=== PATIENT | male | born 1965 | race Caucasian/White ===

== ENCOUNTER 2018-09-18 18:58 | Emergency (ER) | payer MEDICARE ==
[2018-09-18] MEDS ORDERED: Cyclobenzaprine 10 MG TAB ONE (19:28)
--- NOTE | 2018-09-18 21:31 | RAD ---
LEFT LEG TWO VIEWS: 09/18/18 No acute fracture was seen. The tibia and fibula appear intact. IMPRESSION: No acute finding. POS: HOME
== END 2018-09-18 20:02 | disposition home or self-care (01) ==
LOC: BURERS 18:58
DX: S86.112A Strain of other muscle(s) and tendon(s) of posterior muscle group at lower leg level, left leg, initial encounter (principal); M54.5 Low back pain; E11.9 Type 2 diabetes mellitus without complications; I11.0 Hypertensive heart disease with heart failure; I50.9 Heart failure, unspecified; M19.90 Unspecified osteoarthritis, unspecified site; F32.9 Major depressive disorder, single episode, unspecified; Z79.899 Other long term (current) drug therapy; Z79.4 Long term (current) use of insulin; Z79.82 Long term (current) use of aspirin; W19.XXXA Unspecified fall, initial encounter; Y92.009 Unspecified place in unspecified non-institutional (private) residence as the place of occurrence of the external cause

== ENCOUNTER 2019-01-08 11:52 | Emergency (ER) | payer MEDICARE ==
[2019-01-08 12:19] LABS: #Basophils 0.1 thou/uL (0.0-0.2); #Eosinphils 0.1 thou/uL (0.0-0.7); #Lymphocytes 1.8 thou/uL (1.20-3.40); #Monocytes 0.5 thou/uL (0.11-0.59); #Neutrophils 4.7 thou/uL (1.40-6.50); %Eosinophils 1.6 % (0.0-10.0); %Lymphocytes 24.9 % (21.0-51.0); %Monocytes 6.5 % (0.0-10.0); Hemoglobin 10.4 g/dL (14.0-18.0); Mean Corpuscular HGB CONC 30.6 g/dL (32.0-36.0); Mean Corpuscular Volume 91.4 fL (78.0-98.0); Mean Platelet Volume 6.2 fL (7.4-10.4); Platelet Count 229 thou/uL (130-400); RBC Distribution Width 14.5 % (11.5-14.5); Red Blood Cell (RBC) Count 3.71 mill/uL (4.70-6.10); White Blood Cell (WBC) Count 7.2 thou/uL (4.8-10.8)
[2019-01-08 12:31] LABS: ALT (SGPT) 15 U/L (8-55); AST (SGOT) 14 U/L (5-34); Albumin 3.7 g/dL (3.5-5.0); Alkaline Phosphatase 65 U/L (40-150); BUN (Urea Nitrogen) 62 mg/dL (8.4-25.7); Bilirubin, Total 0.2 mg/dL (0.2-1.2); Calc. Creatinine Clearance 0 mL/min (70-130); Calcium 9.1 mg/dL (7.8-10.44); Chloride 110 mmol/L (98-107); Estimated GFR-MDRD 31; Globulin 3.2 g/dL (2.4-3.5); Glucose 201 mg/dL (70-105); Potassium 6.2 mmol/L (3.5-5.1); Protein, Total 6.9 g/dL (6.0-8.3)
[2019-01-08 12:34] LABS: Sodium 135 mmol/L (136-145)
[2019-01-08] MEDS ORDERED: Insulin Regular 300 UNITS/3 ML VIAL SC SCH (13:00)
[2019-01-08] MEDS ORDERED: Sodium Bicarb 50 MEQ/50 ML Abboject 8.4% SYRINGE ONE (13:00)
[2019-01-08] MEDS ORDERED: Dextrose 50% Abboject 50 ML SYRINGE ONE ×2 (13:00→14:38)
[2019-01-08] MEDS ORDERED: Calcium Chloride 1 GM/10 ML Abboject SYRINGE IVP SCH (13:00)
[2019-01-08] MEDS ORDERED: Albuterol Sulfate 2.5 mg/0.5 ml Neb NEB SCH (13:00)
[2019-01-08] MEDS ORDERED: Calcium Chloride 1 GM/10 ML Abboject SYRINGE ONE (13:00)
[2019-01-08] MEDS ORDERED: Insulin Regular 300 UNITS/3 ML VIAL ONE (13:00)
[2019-01-08] MEDS ORDERED: Albuterol Sulfate 1.25 MG/3 ML NEB ONE (13:05)
[2019-01-08] MEDS ORDERED: Sodium Bicarb 50 MEQ/50 ML Abboject 8.4% SYRINGE IVP SCH (13:15)
[2019-01-08 13:35] LABS: Bilirubin Negative (Negative); Blood, Urine Small (Negative); Clarity Cloudy (Clear); Glucose, Urine (Dipstick) Negative (Negative); Leukocyte Moderate (Negative); Nitrite Negative (Negative); Protein, Urine (Dipstick) 100 mg/dL (Neg-Trace); Urobilinogen 0.2 mg/dL (Less than 2)
[2019-01-08 13:36] LABS: Bacteria/HPF 4+ HPF (None Seen); Squamous Epithelial 0-3 HPF (0-3)
[2019-01-08 13:37] LABS: RBC/HPF 0-3 HPF (0-3); WBC/HPF 21-50 HPF (0-3)
[2019-01-08 14:18] LABS: Potassium 6.6 mmol/L (3.5-5.1)
[2019-01-08 16:17] LABS: Potassium 5.4 mmol/L (3.5-5.1)
== END 2019-01-08 16:40 | disposition home or self-care (01) ==
LOC: BURERS 11:52
DX: E87.5 Hyperkalemia (principal); N19 Unspecified kidney failure; I11.0 Hypertensive heart disease with heart failure; I50.9 Heart failure, unspecified; G47.33 Obstructive sleep apnea (adult) (pediatric); E11.9 Type 2 diabetes mellitus without complications; F32.9 Major depressive disorder, single episode, unspecified; Z79.82 Long term (current) use of aspirin; Z79.4 Long term (current) use of insulin
CPT/HCPCS: 80053; 81003; 81015; 83605; 85025; 93005; 96374; 96375; 96376; J1815; J7611

== ENCOUNTER 2020-06-11 11:33 | Outpatient (CLI) | payer MEDICARE | END 2020-06-11 11:34 | disposition home or self-care (01) | LOC: BURRAD 11:33 | PROVIDERS: ATTEND Family Medicine | DX: R22.31 Localized swelling, mass and lump, right upper limb (principal) ==

== ENCOUNTER 2021-04-08 14:57 | Outpatient (CLI) | payer MEDICARE | END 2021-04-08 14:58 | disposition home or self-care (01) | LOC: BURRAD 14:57 | PROVIDERS: ATTEND Podiatrist Foot & Ankle Surgery | DX: L97.529 Non-pressure chronic ulcer of other part of left foot with unspecified severity (principal) ==

== ENCOUNTER 2021-05-14 16:24 | Inpatient (IN) | payer MEDICARE ==
[2021-05-14] MEDS ORDERED: Dextrose 5% in Water 1,000 ML IV PRN (17:30)
[2021-05-14] MEDS ORDERED: Dextrose 50% Abboject 50 ML SYRINGE SLOW IVP PRN (17:30)
[2021-05-14 18:41] LABS: #Basophils 0.1 thou/uL (0.0-0.2); #Eosinphils 0.3 thou/uL (0.0-0.7); #Lymphocytes 2.4 thou/uL (1.20-3.40); #Monocytes 0.5 thou/uL (0.11-0.59); #Neutrophils 6.3 thou/uL (1.40-6.50); %Basophils 1.1 % (0.0-1.0); Hemoglobin 10.6 g/dL (14.0-18.0); Mean Corpuscular Hemoglobin 27.3 pg (27.0-31.0); Mean Corpuscular Volume 82.9 fL (78.0-98.0); Platelet Count 299 thou/uL (130-400); RBC Distribution Width 14.5 % (11.5-14.5); Red Blood Cell (RBC) Count 3.87 mill/uL (4.70-6.10); White Blood Cell (WBC) Count 9.6 thou/uL (4.8-10.8)
[2021-05-14 18:54] LABS: Anion Gap 18 mmol/L (10-20); BUN (Urea Nitrogen) 42 mg/dL (8.4-25.7); CRP (Inflammatory) 1.57 mg/dL (= or < 0.5); Calc. Creatinine Clearance 0 mL/min (70-130); Calcium 9.3 mg/dL (7.8-10.44); Carbon Dioxide 24 mmol/L (22-29); Chloride 100 mmol/L (98-107); Glucose 277 mg/dL (70-105); Potassium 4.9 mmol/L (3.5-5.1); Sodium 137 mmol/L (136-145)
[2021-05-14] MEDS: Lantus 1000 UNITS/10 ML VIAL SC SCH (20:41)
[2021-05-14] MEDS: HumaLOG 300 UNITS/3 ML VIAL SC PRN (20:42)
[2021-05-14] MEDS: Atorvastatin Calcium 40 MG TAB PO SCH (20:43)
[2021-05-14] MEDS: Gabapentin 300 MG CAP PO SCH (20:44)
[2021-05-14] MEDS: Amoxicillin/Potassium Clav 875 MG TAB PO SCH (20:44)
[2021-05-14] MEDS: traZODone HCl 50 MG TAB PO SCH (20:46)
[2021-05-14] MEDS: Famotidine 20 MG TAB PO SCH (20:46)
[2021-05-14] MEDS: Loratadine 10 MG TAB PO SCH (20:47)
[2021-05-14] MEDS: hydrALAZINE 10 MG TAB PO SCH (20:47)
[2021-05-15] MEDS: Furosemide 40 MG TAB PO SCH (09:21)
[2021-05-15] MEDS: hydrALAZINE 10 MG TAB PO SCH ×3 (09:21→21:15)
[2021-05-15] MEDS: Gabapentin 300 MG CAP PO SCH ×3 (09:21→21:17)
[2021-05-15] MEDS: Aspirin 81 mg Enteric Coated Tablet PO SCH (09:21)
[2021-05-15] MEDS: Amlodipine 5 MG TAB PO SCH (09:22)
[2021-05-15] MEDS: HumaLOG 300 UNITS/3 ML VIAL SC PRN ×4 (09:22→21:18)
[2021-05-15] MEDS: Amoxicillin/Potassium Clav 875 MG TAB PO SCH ×2 (09:22→21:15)
[2021-05-15] MEDS: Lantus 1000 UNITS/10 ML VIAL SC SCH ×2 (09:22→22:33)
[2021-05-15] MEDS: Calcitriol 0.25 MCG CAP PO SCH (09:22)
[2021-05-15] MEDS: HYDROcodone/Acetaminophen 5/325 mg Tablet PO PRN (15:57)
[2021-05-15] MEDS: Famotidine 20 MG TAB PO SCH (21:15)
[2021-05-15] MEDS: traZODone HCl 50 MG TAB PO SCH (21:15)
[2021-05-15] MEDS: Atorvastatin Calcium 40 MG TAB PO SCH (21:15)
[2021-05-15] MEDS: Loratadine 10 MG TAB PO SCH (21:17)
[2021-05-16] MEDS: hydrALAZINE 10 MG TAB PO SCH ×3 (09:01→21:10)
[2021-05-16] MEDS: Aspirin 81 mg Enteric Coated Tablet PO SCH (09:01)
[2021-05-16] MEDS: Amoxicillin/Potassium Clav 875 MG TAB PO SCH ×2 (09:01→21:10)
[2021-05-16] MEDS: Amlodipine 5 MG TAB PO SCH (09:02)
[2021-05-16] MEDS: Calcitriol 0.25 MCG CAP PO SCH (09:02)
[2021-05-16] MEDS: Furosemide 40 MG TAB PO SCH (09:02)
[2021-05-16] MEDS: Gabapentin 300 MG CAP PO SCH ×3 (09:02→21:12)
[2021-05-16] MEDS: Lantus 1000 UNITS/10 ML VIAL SC SCH ×2 (09:04→21:06)
[2021-05-16] MEDS: HumaLOG 300 UNITS/3 ML VIAL SC PRN ×3 (13:27→21:06)
[2021-05-16] MEDS: traZODone HCl 50 MG TAB PO SCH (21:10)
[2021-05-16] MEDS: Atorvastatin Calcium 40 MG TAB PO SCH (21:11)
[2021-05-16] MEDS: Famotidine 20 MG TAB PO SCH (21:11)
[2021-05-16] MEDS: Loratadine 10 MG TAB PO SCH (21:13)
[2021-05-16] MEDS: HYDROcodone/Acetaminophen 5/325 mg Tablet PO PRN (22:50)
[2021-05-17] MEDS ORDERED: Loperamide HCl 2 MG CAP PO PRN (07:11)
[2021-05-17] MEDS: hydrALAZINE 10 MG TAB PO SCH ×3 (08:25→21:22)
[2021-05-17] MEDS: Gabapentin 300 MG CAP PO SCH ×3 (08:26→21:25)
[2021-05-17] MEDS: Furosemide 40 MG TAB PO SCH (08:27)
[2021-05-17] MEDS: Calcitriol 0.25 MCG CAP PO SCH (08:27)
[2021-05-17] MEDS: Saccharomyces boulardii 250 MG CAP PO SCH (08:27)
[2021-05-17] MEDS: Aspirin 81 mg Enteric Coated Tablet PO SCH (08:28)
[2021-05-17] MEDS: Amoxicillin/Potassium Clav 875 MG TAB PO SCH ×2 (08:28→21:22)
[2021-05-17] MEDS: Amlodipine 5 MG TAB PO SCH (08:28)
[2021-05-17] MEDS: HYDROcodone/Acetaminophen 5/325 mg Tablet PO PRN (08:37)
[2021-05-17] MEDS: Lantus 1000 UNITS/10 ML VIAL SC SCH ×2 (08:40→21:29)
[2021-05-17] MEDS: HumaLOG 300 UNITS/3 ML VIAL SC PRN ×3 (08:41→17:41)
[2021-05-17] MEDS: traZODone HCl 50 MG TAB PO SCH (21:23)
[2021-05-17] MEDS: Famotidine 20 MG TAB PO SCH (21:25)
[2021-05-17] MEDS: Atorvastatin Calcium 40 MG TAB PO SCH (21:25)
[2021-05-17] MEDS: Loratadine 10 MG TAB PO SCH (21:26)
[2021-05-18] MEDS: hydrALAZINE 10 MG TAB PO SCH ×3 (10:10→20:35)
[2021-05-18] MEDS: Amlodipine 5 MG TAB PO SCH (10:10)
[2021-05-18] MEDS: Amoxicillin/Potassium Clav 875 MG TAB PO SCH ×2 (10:11→20:39)
[2021-05-18] MEDS: Calcitriol 0.25 MCG CAP PO SCH (10:11)
[2021-05-18] MEDS: Saccharomyces boulardii 250 MG CAP PO SCH (10:11)
[2021-05-18] MEDS: Aspirin 81 mg Enteric Coated Tablet PO SCH (10:11)
[2021-05-18] MEDS: Gabapentin 300 MG CAP PO SCH ×3 (10:11→20:37)
[2021-05-18] MEDS: Furosemide 40 MG TAB PO SCH (10:12)
[2021-05-18] MEDS: Lantus 1000 UNITS/10 ML VIAL SC SCH ×2 (10:14→20:39)
[2021-05-18] MEDS: HumaLOG 300 UNITS/3 ML VIAL SC PRN ×3 (10:14→17:48)
[2021-05-18] MEDS: HYDROcodone/Acetaminophen 5/325 mg Tablet PO PRN (10:18)
[2021-05-18] MEDS: traZODone HCl 50 MG TAB PO SCH (20:35)
[2021-05-18] MEDS: Famotidine 20 MG TAB PO SCH (20:36)
[2021-05-18] MEDS: Atorvastatin Calcium 40 MG TAB PO SCH (20:36)
[2021-05-18] MEDS: Loratadine 10 MG TAB PO SCH (20:37)
[2021-05-19] MEDS: Amlodipine 5 MG TAB PO SCH (08:36)
[2021-05-19] MEDS: Aspirin 81 mg Enteric Coated Tablet PO SCH (08:36)
[2021-05-19] MEDS: Amoxicillin/Potassium Clav 875 MG TAB PO SCH ×2 (08:36→20:33)
[2021-05-19] MEDS: hydrALAZINE 10 MG TAB PO SCH ×3 (08:36→20:35)
[2021-05-19] MEDS: Calcitriol 0.25 MCG CAP PO SCH (08:36)
[2021-05-19] MEDS: Saccharomyces boulardii 250 MG CAP PO SCH (08:36)
[2021-05-19] MEDS: Furosemide 40 MG TAB PO SCH (08:36)
[2021-05-19] MEDS: HumaLOG 300 UNITS/3 ML VIAL SC PRN ×4 (08:38→20:38)
[2021-05-19] MEDS: Gabapentin 300 MG CAP PO SCH ×3 (08:38→20:34)
[2021-05-19] MEDS: Lantus 1000 UNITS/10 ML VIAL SC SCH ×2 (08:38→20:37)
[2021-05-19] MEDS: HYDROcodone/Acetaminophen 5/325 mg Tablet PO PRN (15:11)
[2021-05-19] MEDS: Famotidine 20 MG TAB PO SCH (20:34)
[2021-05-19] MEDS: traZODone HCl 50 MG TAB PO SCH (20:35)
[2021-05-19] MEDS: Atorvastatin Calcium 40 MG TAB PO SCH (20:36)
[2021-05-19] MEDS: Loratadine 10 MG TAB PO SCH (20:36)
[2021-05-20] MEDS: Gabapentin 300 MG CAP PO SCH ×3 (09:48→21:45)
[2021-05-20] MEDS: Calcitriol 0.25 MCG CAP PO SCH (09:48)
[2021-05-20] MEDS: Saccharomyces boulardii 250 MG CAP PO SCH (09:48)
[2021-05-20] MEDS: hydrALAZINE 10 MG TAB PO SCH ×3 (09:49→21:45)
[2021-05-20] MEDS: Amoxicillin/Potassium Clav 875 MG TAB PO SCH ×2 (09:49→21:44)
[2021-05-20] MEDS: Aspirin 81 mg Enteric Coated Tablet PO SCH (09:49)
[2021-05-20] MEDS: Furosemide 40 MG TAB PO SCH (09:49)
[2021-05-20] MEDS: Amlodipine 5 MG TAB PO SCH (09:49)
[2021-05-20] MEDS: Lantus 1000 UNITS/10 ML VIAL SC SCH ×2 (09:50→21:38)
[2021-05-20] MEDS: HumaLOG 300 UNITS/3 ML VIAL SC PRN ×2 (12:07→18:25)
[2021-05-20] MEDS: HYDROcodone/Acetaminophen 5/325 mg Tablet PO PRN ×2 (15:43→21:54)
[2021-05-20] MEDS: Atorvastatin Calcium 40 MG TAB PO SCH (21:44)
[2021-05-20] MEDS: traZODone HCl 50 MG TAB PO SCH (21:44)
[2021-05-20] MEDS: Famotidine 20 MG TAB PO SCH (21:44)
[2021-05-20] MEDS: Loratadine 10 MG TAB PO SCH (21:49)
[2021-05-21 05:53] LABS: #Basophils 0.1 thou/uL (0.0-0.2); #Eosinphils 0.2 thou/uL (0.0-0.7); #Lymphocytes 2.6 thou/uL (1.20-3.40); #Monocytes 0.5 thou/uL (0.11-0.59); %Eosinophils 3.4 % (0.0-10.0); %Monocytes 6.2 % (0.0-10.0); %Neutrophils 54.4 % (42.0-75.0); Mean Corpuscular HGB CONC 31.5 g/dL (32.0-36.0); Mean Corpuscular Hemoglobin 26.6 pg (27.0-31.0); Mean Corpuscular Volume 84.3 fL (78.0-98.0); Platelet Count 286 thou/uL (130-400); RBC Distribution Width 14.9 % (11.5-14.5); Red Blood Cell (RBC) Count 3.77 mill/uL (4.70-6.10); White Blood Cell (WBC) Count 7.4 thou/uL (4.8-10.8)
[2021-05-21 05:59] LABS: Anion Gap 14 mmol/L (10-20); BUN (Urea Nitrogen) 63 mg/dL (8.4-25.7); Calc. Creatinine Clearance 107 mL/min (70-130); Calcium 8.9 mg/dL (7.8-10.44); Carbon Dioxide 27 mmol/L (22-29); Chloride 102 mmol/L (98-107); Glucose 191 mg/dL (70-105); Potassium 4.4 mmol/L (3.5-5.1); Sodium 139 mmol/L (136-145)
[2021-05-21] MEDS: Lantus 1000 UNITS/10 ML VIAL SC SCH ×2 (09:38→22:18)
[2021-05-21] MEDS: HumaLOG 300 UNITS/3 ML VIAL SC PRN ×3 (09:39→17:13)
[2021-05-21] MEDS: Gabapentin 300 MG CAP PO SCH ×3 (09:41→22:21)
[2021-05-21] MEDS: Aspirin 81 mg Enteric Coated Tablet PO SCH (09:41)
[2021-05-21] MEDS: hydrALAZINE 10 MG TAB PO SCH ×3 (09:42→22:23)
[2021-05-21] MEDS: Calcitriol 0.25 MCG CAP PO SCH (09:42)
[2021-05-21] MEDS: Amoxicillin/Potassium Clav 875 MG TAB PO SCH ×2 (09:42→22:19)
[2021-05-21] MEDS: Saccharomyces boulardii 250 MG CAP PO SCH (09:42)
[2021-05-21] MEDS: Furosemide 40 MG TAB PO SCH (09:42)
[2021-05-21] MEDS: Amlodipine 5 MG TAB PO SCH (09:43)
[2021-05-21] MEDS: HYDROcodone/Acetaminophen 5/325 mg Tablet PO PRN (13:00)
[2021-05-21] MEDS: Atorvastatin Calcium 40 MG TAB PO SCH (22:20)
[2021-05-21] MEDS: Loratadine 10 MG TAB PO SCH (22:21)
[2021-05-21] MEDS: Famotidine 20 MG TAB PO SCH (22:21)
[2021-05-21] MEDS: traZODone HCl 50 MG TAB PO SCH (22:23)
[2021-05-22] MEDS: Gabapentin 300 MG CAP PO SCH ×3 (10:34→20:34)
[2021-05-22] MEDS: Calcitriol 0.25 MCG CAP PO SCH (10:35)
[2021-05-22] MEDS: Furosemide 40 MG TAB PO SCH (10:35)
[2021-05-22] MEDS: Amlodipine 5 MG TAB PO SCH (10:35)
[2021-05-22] MEDS: Amoxicillin/Potassium Clav 875 MG TAB PO SCH ×2 (10:36→20:32)
[2021-05-22] MEDS: hydrALAZINE 10 MG TAB PO SCH ×3 (10:36→20:37)
[2021-05-22] MEDS: Aspirin 81 mg Enteric Coated Tablet PO SCH (10:36)
[2021-05-22] MEDS: Lantus 1000 UNITS/10 ML VIAL SC SCH ×2 (10:37→20:31)
[2021-05-22] MEDS: HumaLOG 300 UNITS/3 ML VIAL SC PRN ×3 (10:38→18:27)
[2021-05-22] MEDS: Saccharomyces boulardii 250 MG CAP PO SCH (10:38)
[2021-05-22] MEDS: Atorvastatin Calcium 40 MG TAB PO SCH (20:33)
[2021-05-22] MEDS: traZODone HCl 50 MG TAB PO SCH (20:33)
[2021-05-22] MEDS: Famotidine 20 MG TAB PO SCH (20:33)
[2021-05-22] MEDS: Loratadine 10 MG TAB PO SCH (20:33)
[2021-05-22] MEDS: HYDROcodone/Acetaminophen 5/325 mg Tablet PO PRN (20:34)
[2021-05-23] MEDS: Saccharomyces boulardii 250 MG CAP PO SCH (09:14)
[2021-05-23] MEDS: Amlodipine 5 MG TAB PO SCH (09:15)
[2021-05-23] MEDS: hydrALAZINE 10 MG TAB PO SCH ×3 (09:15→20:38)
[2021-05-23] MEDS: Gabapentin 300 MG CAP PO SCH ×3 (09:16→20:39)
[2021-05-23] MEDS: Furosemide 40 MG TAB PO SCH (09:16)
[2021-05-23] MEDS: Amoxicillin/Potassium Clav 875 MG TAB PO SCH ×2 (09:16→20:37)
[2021-05-23] MEDS: Aspirin 81 mg Enteric Coated Tablet PO SCH (09:16)
[2021-05-23] MEDS: Calcitriol 0.25 MCG CAP PO SCH (09:16)
[2021-05-23] MEDS: Lantus 1000 UNITS/10 ML VIAL SC SCH ×2 (09:18→20:36)
[2021-05-23] MEDS: HumaLOG 300 UNITS/3 ML VIAL SC PRN ×2 (12:03→17:06)
[2021-05-23] MEDS: Atorvastatin Calcium 40 MG TAB PO SCH (20:36)
[2021-05-23] MEDS: Loratadine 10 MG TAB PO SCH (20:37)
[2021-05-23] MEDS: traZODone HCl 50 MG TAB PO SCH (20:38)
[2021-05-23] MEDS: Famotidine 20 MG TAB PO SCH (20:38)
[2021-05-23] MEDS: HYDROcodone/Acetaminophen 5/325 mg Tablet PO PRN (20:40)
[2021-05-24] MEDS: Gabapentin 300 MG CAP PO SCH ×3 (09:27→20:29)
[2021-05-24] MEDS: Saccharomyces boulardii 250 MG CAP PO SCH (09:28)
[2021-05-24] MEDS: Calcitriol 0.25 MCG CAP PO SCH (09:28)
[2021-05-24] MEDS: hydrALAZINE 10 MG TAB PO SCH ×3 (09:28→20:29)
[2021-05-24] MEDS: Furosemide 40 MG TAB PO SCH (09:28)
[2021-05-24] MEDS: HYDROcodone/Acetaminophen 5/325 mg Tablet PO PRN ×2 (09:29→20:31)
[2021-05-24] MEDS: Aspirin 81 mg Enteric Coated Tablet PO SCH (09:29)
[2021-05-24] MEDS: Amlodipine 5 MG TAB PO SCH (09:29)
[2021-05-24] MEDS: Amoxicillin/Potassium Clav 875 MG TAB PO SCH ×2 (09:29→20:28)
[2021-05-24] MEDS: Lantus 1000 UNITS/10 ML VIAL SC SCH ×2 (09:30→20:33)
[2021-05-24] MEDS: HumaLOG 300 UNITS/3 ML VIAL SC PRN ×2 (13:41→17:32)
[2021-05-24] MEDS: Atorvastatin Calcium 40 MG TAB PO SCH (20:28)
[2021-05-24] MEDS: Loratadine 10 MG TAB PO SCH (20:29)
[2021-05-24] MEDS: Famotidine 20 MG TAB PO SCH (20:29)
[2021-05-24] MEDS: traZODone HCl 50 MG TAB PO SCH (20:29)
[2021-05-25] MEDS: HumaLOG 300 UNITS/3 ML VIAL SC PRN ×3 (08:01→16:27)
[2021-05-25] MEDS: Lantus 1000 UNITS/10 ML VIAL SC SCH ×2 (08:02→20:54)
[2021-05-25] MEDS: Aspirin 81 mg Enteric Coated Tablet PO SCH (08:38)
[2021-05-25] MEDS: Calcitriol 0.25 MCG CAP PO SCH (08:39)
[2021-05-25] MEDS: Amlodipine 5 MG TAB PO SCH (08:39)
[2021-05-25] MEDS: Furosemide 40 MG TAB PO SCH (08:39)
[2021-05-25] MEDS: Gabapentin 300 MG CAP PO SCH ×3 (08:40→20:56)
[2021-05-25] MEDS: Saccharomyces boulardii 250 MG CAP PO SCH (08:40)
[2021-05-25] MEDS: Amoxicillin/Potassium Clav 875 MG TAB PO SCH ×2 (08:41→20:55)
[2021-05-25] MEDS: hydrALAZINE 10 MG TAB PO SCH ×3 (08:41→20:57)
[2021-05-25] MEDS: HYDROcodone/Acetaminophen 5/325 mg Tablet PO PRN ×2 (14:31→22:15)
[2021-05-25] MEDS: Atorvastatin Calcium 40 MG TAB PO SCH (20:55)
[2021-05-25] MEDS: traZODone HCl 50 MG TAB PO SCH (20:55)
[2021-05-25] MEDS: Loratadine 10 MG TAB PO SCH (20:56)
[2021-05-25] MEDS: Famotidine 20 MG TAB PO SCH (20:56)
[2021-05-26] MEDS: HYDROcodone/Acetaminophen 5/325 mg Tablet PO PRN ×2 (08:25→20:54)
[2021-05-26] MEDS: Amlodipine 5 MG TAB PO SCH (08:26)
[2021-05-26] MEDS: Gabapentin 300 MG CAP PO SCH ×3 (08:26→20:52)
[2021-05-26] MEDS: Saccharomyces boulardii 250 MG CAP PO SCH (08:26)
[2021-05-26] MEDS: Aspirin 81 mg Enteric Coated Tablet PO SCH (08:26)
[2021-05-26] MEDS: Amoxicillin/Potassium Clav 875 MG TAB PO SCH ×2 (08:27→20:51)
[2021-05-26] MEDS: Furosemide 40 MG TAB PO SCH (08:27)
[2021-05-26] MEDS: hydrALAZINE 10 MG TAB PO SCH ×3 (08:27→20:55)
[2021-05-26] MEDS: Calcitriol 0.25 MCG CAP PO SCH (08:27)
[2021-05-26] MEDS: Lantus 1000 UNITS/10 ML VIAL SC SCH ×2 (08:28→20:50)
[2021-05-26] MEDS: DULAGLUTIDE 1.5 MG/0.5 ML SC SCH (09:25)
[2021-05-26] MEDS: HumaLOG 300 UNITS/3 ML VIAL SC PRN ×2 (13:24→16:52)
[2021-05-26] MEDS: traZODone HCl 50 MG TAB PO SCH (20:52)
[2021-05-26] MEDS: Atorvastatin Calcium 40 MG TAB PO SCH (20:52)
[2021-05-26] MEDS: Famotidine 20 MG TAB PO SCH (20:52)
[2021-05-26] MEDS: Loratadine 10 MG TAB PO SCH (20:52)
[2021-05-26 23:49] LABS: SARS-CoV-2 PCR by NAA Not Detected (NotDetected)
[2021-05-27] MEDS: Gabapentin 300 MG CAP PO SCH ×3 (08:32→21:43)
[2021-05-27] MEDS: Saccharomyces boulardii 250 MG CAP PO SCH (08:32)
[2021-05-27] MEDS: Furosemide 40 MG TAB PO SCH (08:33)
[2021-05-27] MEDS: Calcitriol 0.25 MCG CAP PO SCH (08:33)
[2021-05-27] MEDS: Amlodipine 5 MG TAB PO SCH (08:33)
[2021-05-27] MEDS: Amoxicillin/Potassium Clav 875 MG TAB PO SCH ×2 (08:33→21:45)
[2021-05-27] MEDS: Aspirin 81 mg Enteric Coated Tablet PO SCH (08:34)
[2021-05-27] MEDS: hydrALAZINE 10 MG TAB PO SCH ×3 (08:34→21:43)
[2021-05-27] MEDS: HumaLOG 300 UNITS/3 ML VIAL SC PRN ×3 (08:35→16:58)
[2021-05-27] MEDS: Lantus 1000 UNITS/10 ML VIAL SC SCH ×2 (08:37→21:56)
[2021-05-27] MEDS: HYDROcodone/Acetaminophen 5/325 mg Tablet PO PRN (15:34)
[2021-05-27] MEDS: Atorvastatin Calcium 40 MG TAB PO SCH (21:43)
[2021-05-27] MEDS: traZODone HCl 50 MG TAB PO SCH (21:46)
[2021-05-27] MEDS: Famotidine 20 MG TAB PO SCH (21:46)
[2021-05-27] MEDS: Loratadine 10 MG TAB PO SCH (21:49)
[2021-05-28 05:41] LABS: #Basophils 0.1 thou/uL (0.0-0.2); #Eosinphils 0.3 thou/uL (0.0-0.7); #Lymphocytes 2.4 thou/uL (1.20-3.40); #Monocytes 0.3 thou/uL (0.11-0.59); #Neutrophils 2.8 thou/uL (1.40-6.50); %Basophils 1.2 % (0.0-1.0); %Eosinophils 4.4 % (0.0-10.0); %Monocytes 5.8 % (0.0-10.0); %Neutrophils 47.6 % (42.0-75.0); Hemoglobin 10.2 g/dL (14.0-18.0); Mean Corpuscular Hemoglobin 26.6 pg (27.0-31.0); Mean Corpuscular Volume 83.2 fL (78.0-98.0); Platelet Count 226 thou/uL (130-400); RBC Distribution Width 14.4 % (11.5-14.5); Red Blood Cell (RBC) Count 3.83 mill/uL (4.70-6.10); White Blood Cell (WBC) Count 5.9 thou/uL (4.8-10.8)
[2021-05-28] MEDS: hydrALAZINE 10 MG TAB PO SCH ×3 (08:26→20:48)
[2021-05-28] MEDS: Furosemide 40 MG TAB PO SCH (08:26)
[2021-05-28] MEDS: Gabapentin 300 MG CAP PO SCH ×3 (08:27→20:48)
[2021-05-28] MEDS: Saccharomyces boulardii 250 MG CAP PO SCH (08:27)
[2021-05-28] MEDS: Amoxicillin/Potassium Clav 875 MG TAB PO SCH ×2 (08:27→20:47)
[2021-05-28] MEDS: HYDROcodone/Acetaminophen 5/325 mg Tablet PO PRN (08:27)
[2021-05-28] MEDS: Aspirin 81 mg Enteric Coated Tablet PO SCH (08:27)
[2021-05-28] MEDS: Calcitriol 0.25 MCG CAP PO SCH (08:27)
[2021-05-28] MEDS: Amlodipine 5 MG TAB PO SCH (08:28)
[2021-05-28 08:46] LABS: Anion Gap 13 mmol/L (10-20); BUN (Urea Nitrogen) 56 mg/dL (8.4-25.7); Calc. Creatinine Clearance 123 mL/min (70-130); Calcium 9.1 mg/dL (7.8-10.44); Carbon Dioxide 26 mmol/L (22-29); Chloride 103 mmol/L (98-107); Glucose 258 mg/dL (70-105); Sodium 138 mmol/L (136-145)
[2021-05-28] MEDS: Lantus 1000 UNITS/10 ML VIAL SC SCH ×2 (09:07→20:52)
[2021-05-28] MEDS: HumaLOG 300 UNITS/3 ML VIAL SC PRN ×4 (09:07→20:52)
[2021-05-28] MEDS: Atorvastatin Calcium 40 MG TAB PO SCH (20:49)
[2021-05-28] MEDS: traZODone HCl 50 MG TAB PO SCH (20:50)
[2021-05-28] MEDS: Famotidine 20 MG TAB PO SCH (20:51)
[2021-05-28] MEDS: Loratadine 10 MG TAB PO SCH (20:51)
[2021-05-29] MEDS: Saccharomyces boulardii 250 MG CAP PO SCH (08:17)
[2021-05-29] MEDS: Gabapentin 300 MG CAP PO SCH ×3 (08:17→21:20)
[2021-05-29] MEDS: Amoxicillin/Potassium Clav 875 MG TAB PO SCH ×2 (08:18→21:21)
[2021-05-29] MEDS: hydrALAZINE 10 MG TAB PO SCH ×3 (08:18→21:21)
[2021-05-29] MEDS: Aspirin 81 mg Enteric Coated Tablet PO SCH (08:20)
[2021-05-29] MEDS: Calcitriol 0.25 MCG CAP PO SCH (08:20)
[2021-05-29] MEDS: Amlodipine 5 MG TAB PO SCH (08:20)
[2021-05-29] MEDS: Furosemide 40 MG TAB PO SCH (08:20)
[2021-05-29] MEDS: Lantus 1000 UNITS/10 ML VIAL SC SCH ×2 (08:22→21:17)
[2021-05-29] MEDS: HumaLOG 300 UNITS/3 ML VIAL SC PRN ×3 (08:23→17:02)
[2021-05-29] MEDS: traZODone HCl 50 MG TAB PO SCH (21:19)
[2021-05-29] MEDS: Atorvastatin Calcium 40 MG TAB PO SCH (21:20)
[2021-05-29] MEDS: Loratadine 10 MG TAB PO SCH (21:21)
[2021-05-29] MEDS: Famotidine 20 MG TAB PO SCH (21:21)
[2021-05-30] MEDS: Saccharomyces boulardii 250 MG CAP PO SCH (08:34)
[2021-05-30] MEDS: Gabapentin 300 MG CAP PO SCH ×3 (08:34→21:53)
[2021-05-30] MEDS: Amlodipine 5 MG TAB PO SCH (08:35)
[2021-05-30] MEDS: Aspirin 81 mg Enteric Coated Tablet PO SCH (08:35)
[2021-05-30] MEDS: Amoxicillin/Potassium Clav 875 MG TAB PO SCH ×2 (08:35→20:41)
[2021-05-30] MEDS: Calcitriol 0.25 MCG CAP PO SCH (08:35)
[2021-05-30] MEDS: hydrALAZINE 10 MG TAB PO SCH ×3 (08:35→20:41)
[2021-05-30] MEDS: Furosemide 40 MG TAB PO SCH (08:35)
[2021-05-30] MEDS: Lantus 1000 UNITS/10 ML VIAL SC SCH ×2 (08:36→20:38)
[2021-05-30] MEDS: HumaLOG 300 UNITS/3 ML VIAL SC PRN ×3 (12:07→20:37)
[2021-05-30] MEDS: Atorvastatin Calcium 40 MG TAB PO SCH (20:40)
[2021-05-30] MEDS: traZODone HCl 50 MG TAB PO SCH (20:42)
[2021-05-30] MEDS: Loratadine 10 MG TAB PO SCH (20:42)
[2021-05-30] MEDS: Famotidine 20 MG TAB PO SCH (20:49)
[2021-05-30] MEDS: HYDROcodone/Acetaminophen 5/325 mg Tablet PO PRN (22:58)
[2021-05-31] MEDS: Amoxicillin/Potassium Clav 875 MG TAB PO SCH ×2 (08:27→20:59)
[2021-05-31] MEDS: Saccharomyces boulardii 250 MG CAP PO SCH (08:27)
[2021-05-31] MEDS: Amlodipine 5 MG TAB PO SCH (08:27)
[2021-05-31] MEDS: Furosemide 40 MG TAB PO SCH (08:27)
[2021-05-31] MEDS: Aspirin 81 mg Enteric Coated Tablet PO SCH (08:27)
[2021-05-31] MEDS: Gabapentin 300 MG CAP PO SCH ×3 (08:28→20:59)
[2021-05-31] MEDS: hydrALAZINE 10 MG TAB PO SCH ×3 (08:28→21:00)
[2021-05-31] MEDS: Calcitriol 0.25 MCG CAP PO SCH (08:28)
[2021-05-31] MEDS: Lantus 1000 UNITS/10 ML VIAL SC SCH ×2 (08:29→21:01)
[2021-05-31] MEDS: HumaLOG 300 UNITS/3 ML VIAL SC PRN ×3 (12:14→21:02)
[2021-05-31] MEDS: Famotidine 20 MG TAB PO SCH (20:59)
[2021-05-31] MEDS: Atorvastatin Calcium 40 MG TAB PO SCH (20:59)
[2021-05-31] MEDS: traZODone HCl 50 MG TAB PO SCH (21:01)
[2021-05-31] MEDS: Loratadine 10 MG TAB PO SCH (21:01)
[2021-05-31] MEDS: HYDROcodone/Acetaminophen 5/325 mg Tablet PO PRN (21:02)
[2021-06-01] MEDS: Amoxicillin/Potassium Clav 875 MG TAB PO SCH ×2 (09:47→21:24)
[2021-06-01] MEDS: Saccharomyces boulardii 250 MG CAP PO SCH (09:47)
[2021-06-01] MEDS: Amlodipine 5 MG TAB PO SCH (09:47)
[2021-06-01] MEDS: Gabapentin 300 MG CAP PO SCH ×3 (09:48→21:24)
[2021-06-01] MEDS: hydrALAZINE 10 MG TAB PO SCH ×3 (09:48→21:31)
[2021-06-01] MEDS: Calcitriol 0.25 MCG CAP PO SCH (09:48)
[2021-06-01] MEDS: Aspirin 81 mg Enteric Coated Tablet PO SCH (09:49)
[2021-06-01] MEDS: Furosemide 40 MG TAB PO SCH (09:49)
[2021-06-01] MEDS: Lantus 1000 UNITS/10 ML VIAL SC SCH ×2 (09:49→21:23)
[2021-06-01] MEDS: HumaLOG 300 UNITS/3 ML VIAL SC PRN ×3 (12:32→21:22)
[2021-06-01] MEDS: traZODone HCl 50 MG TAB PO SCH (21:26)
[2021-06-01] MEDS: Atorvastatin Calcium 40 MG TAB PO SCH (21:27)
[2021-06-01] MEDS: HYDROcodone/Acetaminophen 5/325 mg Tablet PO PRN (21:28)
[2021-06-01] MEDS: Famotidine 20 MG TAB PO SCH (21:28)
[2021-06-01] MEDS: Loratadine 10 MG TAB PO SCH (21:28)
[2021-06-02] MEDS: hydrALAZINE 10 MG TAB PO SCH ×3 (09:36→20:39)
[2021-06-02] MEDS: Furosemide 40 MG TAB PO SCH (09:36)
[2021-06-02] MEDS: Gabapentin 300 MG CAP PO SCH ×3 (09:37→20:37)
[2021-06-02] MEDS: Aspirin 81 mg Enteric Coated Tablet PO SCH (09:37)
[2021-06-02] MEDS: Amlodipine 5 MG TAB PO SCH (09:38)
[2021-06-02] MEDS: Amoxicillin/Potassium Clav 875 MG TAB PO SCH ×2 (09:38→20:38)
[2021-06-02] MEDS: Saccharomyces boulardii 250 MG CAP PO SCH (09:38)
[2021-06-02] MEDS: Calcitriol 0.25 MCG CAP PO SCH (09:39)
[2021-06-02] MEDS: Lantus 1000 UNITS/10 ML VIAL SC SCH ×2 (09:41→21:13)
[2021-06-02] MEDS: HYDROcodone/Acetaminophen 5/325 mg Tablet PO PRN ×2 (09:50→20:37)
[2021-06-02] MEDS: DULAGLUTIDE 1.5 MG/0.5 ML SC SCH (09:53)
[2021-06-02] MEDS: HumaLOG 300 UNITS/3 ML VIAL SC PRN ×3 (13:34→21:14)
[2021-06-02 19:11] LABS: SARS-CoV-2 PCR by NAA Not Detected (NotDetected)
[2021-06-02] MEDS: traZODone HCl 50 MG TAB PO SCH (20:38)
[2021-06-02] MEDS: Atorvastatin Calcium 40 MG TAB PO SCH (20:38)
[2021-06-02] MEDS: Loratadine 10 MG TAB PO SCH (20:39)
[2021-06-02] MEDS: Famotidine 20 MG TAB PO SCH (20:39)
[2021-06-03] MEDS: Saccharomyces boulardii 250 MG CAP PO SCH (09:51)
[2021-06-03] MEDS: Aspirin 81 mg Enteric Coated Tablet PO SCH (09:51)
[2021-06-03] MEDS: Amlodipine 5 MG TAB PO SCH (09:51)
[2021-06-03] MEDS: Amoxicillin/Potassium Clav 875 MG TAB PO SCH ×2 (09:52→22:30)
[2021-06-03] MEDS: Calcitriol 0.25 MCG CAP PO SCH (09:52)
[2021-06-03] MEDS: Gabapentin 300 MG CAP PO SCH ×3 (09:52→22:29)
[2021-06-03] MEDS: hydrALAZINE 10 MG TAB PO SCH ×3 (09:52→22:31)
[2021-06-03] MEDS: Furosemide 40 MG TAB PO SCH (09:52)
[2021-06-03] MEDS: HYDROcodone/Acetaminophen 5/325 mg Tablet PO PRN (09:54)
[2021-06-03] MEDS: Lantus 1000 UNITS/10 ML VIAL SC SCH ×2 (09:56→22:28)
[2021-06-03] MEDS: HumaLOG 300 UNITS/3 ML VIAL SC PRN ×3 (09:59→17:08)
[2021-06-03] MEDS: traZODone HCl 50 MG TAB PO SCH (22:30)
[2021-06-03] MEDS: Loratadine 10 MG TAB PO SCH (22:30)
[2021-06-03] MEDS: Famotidine 20 MG TAB PO SCH (22:31)
[2021-06-03] MEDS: Atorvastatin Calcium 40 MG TAB PO SCH (22:31)
[2021-06-04 06:23] LABS: #Basophils 0.1 thou/uL (0.0-0.2); #Eosinphils 0.2 thou/uL (0.0-0.7); #Lymphocytes 2.3 thou/uL (1.20-3.40); #Monocytes 0.4 thou/uL (0.11-0.59); #Neutrophils 3.8 thou/uL (1.40-6.50); %Basophils 0.8 % (0.0-1.0); %Eosinophils 3.4 % (0.0-10.0); %Lymphocytes 33.5 % (21.0-51.0); %Neutrophils 56.3 % (42.0-75.0); Hemoglobin 10.3 g/dL (14.0-18.0); Mean Corpuscular HGB CONC 31.5 g/dL (32.0-36.0); Mean Corpuscular Hemoglobin 26.3 pg (27.0-31.0); Mean Corpuscular Volume 83.3 fL (78.0-98.0); Mean Platelet Volume 6.9 fL (7.4-10.4); Platelet Count 185 thou/uL (130-400); RBC Distribution Width 14.4 % (11.5-14.5); Red Blood Cell (RBC) Count 3.91 mill/uL (4.70-6.10); White Blood Cell (WBC) Count 6.7 thou/uL (4.8-10.8)
[2021-06-04 06:37] LABS: Anion Gap 13 mmol/L (10-20); BUN (Urea Nitrogen) 52 mg/dL (8.4-25.7); Calc. Creatinine Clearance 112 mL/min (70-130); Calcium 9.1 mg/dL (7.8-10.44); Carbon Dioxide 30 mmol/L (22-29); Chloride 101 mmol/L (98-107); Glucose 181 mg/dL (70-105); Potassium 4.2 mmol/L (3.5-5.1); Sodium 140 mmol/L (136-145)
[2021-06-04] MEDS: HYDROcodone/Acetaminophen 5/325 mg Tablet PO PRN ×2 (08:00→15:22)
[2021-06-04] MEDS: Amoxicillin/Potassium Clav 875 MG TAB PO SCH ×2 (08:01→22:39)
[2021-06-04] MEDS: Aspirin 81 mg Enteric Coated Tablet PO SCH (08:01)
[2021-06-04] MEDS: Gabapentin 300 MG CAP PO SCH ×3 (08:01→22:40)
[2021-06-04] MEDS: Calcitriol 0.25 MCG CAP PO SCH (08:01)
[2021-06-04] MEDS: Furosemide 40 MG TAB PO SCH (08:02)
[2021-06-04] MEDS: Saccharomyces boulardii 250 MG CAP PO SCH (08:02)
[2021-06-04] MEDS: hydrALAZINE 10 MG TAB PO SCH ×3 (08:06→22:40)
[2021-06-04] MEDS: Amlodipine 5 MG TAB PO SCH (08:07)
[2021-06-04] MEDS: HumaLOG 300 UNITS/3 ML VIAL SC PRN ×3 (08:12→17:51)
[2021-06-04] MEDS: Lantus 1000 UNITS/10 ML VIAL SC SCH ×2 (08:14→22:37)
[2021-06-04] MEDS: Famotidine 20 MG TAB PO SCH (22:39)
[2021-06-04] MEDS: Atorvastatin Calcium 40 MG TAB PO SCH (22:39)
[2021-06-04] MEDS: traZODone HCl 50 MG TAB PO SCH (22:39)
[2021-06-04] MEDS: Loratadine 10 MG TAB PO SCH (22:40)
[2021-06-05] MEDS: HYDROcodone/Acetaminophen 5/325 mg Tablet PO PRN ×2 (09:03→20:45)
[2021-06-05] MEDS: Amoxicillin/Potassium Clav 875 MG TAB PO SCH ×2 (09:05→20:50)
[2021-06-05] MEDS: Calcitriol 0.25 MCG CAP PO SCH (09:06)
[2021-06-05] MEDS: Aspirin 81 mg Enteric Coated Tablet PO SCH (09:06)
[2021-06-05] MEDS: Saccharomyces boulardii 250 MG CAP PO SCH (09:06)
[2021-06-05] MEDS: Gabapentin 300 MG CAP PO SCH ×3 (09:06→20:50)
[2021-06-05] MEDS: Amlodipine 5 MG TAB PO SCH (09:07)
[2021-06-05] MEDS: hydrALAZINE 10 MG TAB PO SCH ×3 (09:08→20:52)
[2021-06-05] MEDS: Furosemide 40 MG TAB PO SCH (09:08)
[2021-06-05] MEDS: Lantus 1000 UNITS/10 ML VIAL SC SCH ×2 (09:13→21:06)
[2021-06-05] MEDS: HumaLOG 300 UNITS/3 ML VIAL SC PRN ×3 (09:19→21:08)
[2021-06-05] MEDS ORDERED: Milk Of Magnesia 30 ML UDCUP PO PRN (14:28)
[2021-06-05] MEDS: Atorvastatin Calcium 40 MG TAB PO SCH (20:51)
[2021-06-05] MEDS: traZODone HCl 50 MG TAB PO SCH (20:51)
[2021-06-05] MEDS: Famotidine 20 MG TAB PO SCH (20:51)
[2021-06-05] MEDS: Loratadine 10 MG TAB PO SCH (20:52)
[2021-06-06] MEDS: Calcitriol 0.25 MCG CAP PO SCH (08:51)
[2021-06-06] MEDS: Amoxicillin/Potassium Clav 875 MG TAB PO SCH ×2 (08:51→20:46)
[2021-06-06] MEDS: Saccharomyces boulardii 250 MG CAP PO SCH (08:52)
[2021-06-06] MEDS: Furosemide 40 MG TAB PO SCH (08:52)
[2021-06-06] MEDS: Gabapentin 300 MG CAP PO SCH ×3 (08:52→20:45)
[2021-06-06] MEDS: Aspirin 81 mg Enteric Coated Tablet PO SCH (08:52)
[2021-06-06] MEDS: hydrALAZINE 10 MG TAB PO SCH ×3 (08:53→20:46)
[2021-06-06] MEDS: Amlodipine 5 MG TAB PO SCH (08:54)
[2021-06-06] MEDS: HumaLOG 300 UNITS/3 ML VIAL SC PRN ×4 (08:55→20:48)
[2021-06-06] MEDS: Lantus 1000 UNITS/10 ML VIAL SC SCH ×2 (08:55→20:47)
[2021-06-06] MEDS ORDERED: Polyethylene Glycol 3350 17 GM Packet PO SCH (09:00)
[2021-06-06] MEDS: HYDROcodone/Acetaminophen 5/325 mg Tablet PO PRN (20:45)
[2021-06-06] MEDS: Atorvastatin Calcium 40 MG TAB PO SCH (20:46)
[2021-06-06] MEDS: traZODone HCl 50 MG TAB PO SCH (20:46)
[2021-06-06] MEDS: Famotidine 20 MG TAB PO SCH (20:46)
[2021-06-06] MEDS: Loratadine 10 MG TAB PO SCH (20:46)
[2021-06-07] MEDS ORDERED: Polyethylene Glycol 3350 17 GM Packet PO PRN (08:07)
[2021-06-07] MEDS: Amlodipine 5 MG TAB PO SCH (08:23)
[2021-06-07] MEDS: Furosemide 40 MG TAB PO SCH (08:23)
[2021-06-07] MEDS: Amoxicillin/Potassium Clav 875 MG TAB PO SCH ×2 (08:23→21:14)
[2021-06-07] MEDS: Lantus 1000 UNITS/10 ML VIAL SC SCH ×2 (08:23→21:19)
[2021-06-07] MEDS: Aspirin 81 mg Enteric Coated Tablet PO SCH (08:23)
[2021-06-07] MEDS: Gabapentin 300 MG CAP PO SCH ×3 (08:23→21:14)
[2021-06-07] MEDS: HYDROcodone/Acetaminophen 5/325 mg Tablet PO PRN (08:24)
[2021-06-07] MEDS: Saccharomyces boulardii 250 MG CAP PO SCH (08:24)
[2021-06-07] MEDS: hydrALAZINE 10 MG TAB PO SCH ×3 (08:24→21:17)
[2021-06-07] MEDS: Calcitriol 0.25 MCG CAP PO SCH (08:25)
[2021-06-07] MEDS: HumaLOG 300 UNITS/3 ML VIAL SC PRN ×3 (13:26→21:20)
[2021-06-07] MEDS: traZODone HCl 50 MG TAB PO SCH (21:15)
[2021-06-07] MEDS: Atorvastatin Calcium 40 MG TAB PO SCH (21:15)
[2021-06-07] MEDS: Loratadine 10 MG TAB PO SCH (21:17)
[2021-06-07] MEDS: Famotidine 20 MG TAB PO SCH (21:17)
[2021-06-08] MEDS: Calcitriol 0.25 MCG CAP PO SCH (09:43)
[2021-06-08] MEDS: Furosemide 40 MG TAB PO SCH (09:43)
[2021-06-08] MEDS: Amoxicillin/Potassium Clav 875 MG TAB PO SCH ×2 (09:43→20:29)
[2021-06-08] MEDS: Amlodipine 5 MG TAB PO SCH (09:44)
[2021-06-08] MEDS: Aspirin 81 mg Enteric Coated Tablet PO SCH (09:44)
[2021-06-08] MEDS: Saccharomyces boulardii 250 MG CAP PO SCH (09:45)
[2021-06-08] MEDS: Gabapentin 300 MG CAP PO SCH ×3 (09:45→20:29)
[2021-06-08] MEDS: hydrALAZINE 10 MG TAB PO SCH ×3 (09:45→20:31)
[2021-06-08] MEDS: Lantus 1000 UNITS/10 ML VIAL SC SCH ×2 (09:46→20:35)
[2021-06-08] MEDS: HumaLOG 300 UNITS/3 ML VIAL SC PRN ×3 (11:59→20:36)
[2021-06-08] MEDS: HYDROcodone/Acetaminophen 5/325 mg Tablet PO PRN ×2 (13:21→20:28)
[2021-06-08] MEDS: traZODone HCl 50 MG TAB PO SCH (20:30)
[2021-06-08] MEDS: Atorvastatin Calcium 40 MG TAB PO SCH (20:30)
[2021-06-08] MEDS: Loratadine 10 MG TAB PO SCH (20:31)
[2021-06-08] MEDS: Famotidine 20 MG TAB PO SCH (20:31)
[2021-06-09] MEDS: Lantus 1000 UNITS/10 ML VIAL SC SCH ×2 (09:11→20:29)
[2021-06-09] MEDS: Saccharomyces boulardii 250 MG CAP PO SCH (09:11)
[2021-06-09] MEDS: Amlodipine 5 MG TAB PO SCH (09:12)
[2021-06-09] MEDS: traMADol HCl 50 MG TAB PO PRN ×2 (09:12→20:25)
[2021-06-09] MEDS: Gabapentin 300 MG CAP PO SCH ×3 (09:12→20:26)
[2021-06-09] MEDS: hydrALAZINE 10 MG TAB PO SCH ×3 (09:12→20:28)
[2021-06-09] MEDS: Furosemide 40 MG TAB PO SCH (09:13)
[2021-06-09] MEDS: Amoxicillin/Potassium Clav 875 MG TAB PO SCH ×2 (09:13→20:27)
[2021-06-09] MEDS: Calcitriol 0.25 MCG CAP PO SCH (09:13)
[2021-06-09] MEDS: Aspirin 81 mg Enteric Coated Tablet PO SCH (09:13)
[2021-06-09] MEDS: DULAGLUTIDE 1.5 MG/0.5 ML SC SCH (09:14)
[2021-06-09] MEDS: HumaLOG 300 UNITS/3 ML VIAL SC PRN ×3 (15:20→20:29)
[2021-06-09 17:42] LABS: SARS-CoV-2 PCR by NAA Not Detected (NotDetected)
[2021-06-09] MEDS: Famotidine 20 MG TAB PO SCH (20:25)
[2021-06-09] MEDS: Atorvastatin Calcium 40 MG TAB PO SCH (20:27)
[2021-06-09] MEDS: traZODone HCl 50 MG TAB PO SCH (20:28)
[2021-06-09] MEDS: Loratadine 10 MG TAB PO SCH (20:30)
[2021-06-09] MEDS: HYDROcodone/Acetaminophen 5/325 mg Tablet PO PRN (23:48)
[2021-06-10] MEDS: Aspirin 81 mg Enteric Coated Tablet PO SCH (08:25)
[2021-06-10] MEDS: hydrALAZINE 10 MG TAB PO SCH ×3 (08:25→21:51)
[2021-06-10] MEDS: Gabapentin 300 MG CAP PO SCH ×3 (08:30→21:51)
[2021-06-10] MEDS: Amlodipine 5 MG TAB PO SCH (08:31)
[2021-06-10] MEDS: Calcitriol 0.25 MCG CAP PO SCH (08:31)
[2021-06-10] MEDS: Saccharomyces boulardii 250 MG CAP PO SCH (08:31)
[2021-06-10] MEDS: Furosemide 40 MG TAB PO SCH (08:32)
[2021-06-10] MEDS: Lantus 1000 UNITS/10 ML VIAL SC SCH ×2 (08:33→21:53)
[2021-06-10] MEDS: Amoxicillin/Potassium Clav 875 MG TAB PO SCH ×2 (08:33→21:49)
[2021-06-10] MEDS: HumaLOG 300 UNITS/3 ML VIAL SC PRN ×2 (12:23→17:19)
[2021-06-10] MEDS: Atorvastatin Calcium 40 MG TAB PO SCH (21:50)
[2021-06-10] MEDS: Famotidine 20 MG TAB PO SCH (21:53)
[2021-06-10] MEDS: Loratadine 10 MG TAB PO SCH (21:53)
[2021-06-10] MEDS: traZODone HCl 50 MG TAB PO SCH (21:53)
[2021-06-11 05:27] LABS: #Basophils 0.1 thou/uL (0.0-0.2); #Eosinphils 0.2 thou/uL (0.0-0.7); #Lymphocytes 2.5 thou/uL (1.20-3.40); #Monocytes 0.5 thou/uL (0.11-0.59); %Eosinophils 3.4 % (0.0-10.0); %Lymphocytes 33.9 % (21.0-51.0); %Monocytes 6.7 % (0.0-10.0); %Neutrophils 55.1 % (42.0-75.0); Hemoglobin 10.8 g/dL (14.0-18.0); Mean Corpuscular HGB CONC 32.3 g/dL (32.0-36.0); Mean Corpuscular Hemoglobin 26.6 pg (27.0-31.0); Mean Corpuscular Volume 82.5 fL (78.0-98.0); Mean Platelet Volume 7.9 fL (7.4-10.4); Platelet Count 199 thou/uL (130-400); RBC Distribution Width 14.3 % (11.5-14.5); Red Blood Cell (RBC) Count 4.05 mill/uL (4.70-6.10); White Blood Cell (WBC) Count 7.3 thou/uL (4.8-10.8)
[2021-06-11 05:36] LABS: Anion Gap 10 mmol/L (10-20); BUN (Urea Nitrogen) 41 mg/dL (8.4-25.7); Calc. Creatinine Clearance 127 mL/min (70-130); Calcium 8.5 mg/dL (7.8-10.44); Carbon Dioxide 28 mmol/L (22-29); Chloride 105 mmol/L (98-107); Glucose 157 mg/dL (70-105); Potassium 3.8 mmol/L (3.5-5.1); Sodium 139 mmol/L (136-145)
[2021-06-11] MEDS: HYDROcodone/Acetaminophen 5/325 mg Tablet PO PRN (09:54)
[2021-06-11] MEDS: Aspirin 81 mg Enteric Coated Tablet PO SCH (09:56)
[2021-06-11] MEDS: Gabapentin 300 MG CAP PO SCH ×3 (09:56→20:29)
[2021-06-11] MEDS: hydrALAZINE 10 MG TAB PO SCH ×3 (09:56→20:31)
[2021-06-11] MEDS: Saccharomyces boulardii 250 MG CAP PO SCH (09:56)
[2021-06-11] MEDS: Furosemide 40 MG TAB PO SCH (09:57)
[2021-06-11] MEDS: Calcitriol 0.25 MCG CAP PO SCH (09:57)
[2021-06-11] MEDS: Amlodipine 5 MG TAB PO SCH (09:57)
[2021-06-11] MEDS: Amoxicillin/Potassium Clav 875 MG TAB PO SCH ×2 (10:00→20:30)
[2021-06-11] MEDS: Lantus 1000 UNITS/10 ML VIAL SC SCH ×2 (10:01→20:37)
[2021-06-11] MEDS: HumaLOG 300 UNITS/3 ML VIAL SC PRN ×2 (12:54→17:08)
[2021-06-11] MEDS: Famotidine 20 MG TAB PO SCH (20:30)
[2021-06-11] MEDS: Loratadine 10 MG TAB PO SCH (20:31)
[2021-06-11] MEDS: traZODone HCl 50 MG TAB PO SCH (20:31)
[2021-06-11] MEDS: Atorvastatin Calcium 40 MG TAB PO SCH (20:31)
[2021-06-12] MEDS: Lantus 1000 UNITS/10 ML VIAL SC SCH ×2 (09:46→20:21)
[2021-06-12] MEDS: Amlodipine 5 MG TAB PO SCH (09:47)
[2021-06-12] MEDS: Calcitriol 0.25 MCG CAP PO SCH (09:47)
[2021-06-12] MEDS: Aspirin 81 mg Enteric Coated Tablet PO SCH (09:47)
[2021-06-12] MEDS: Furosemide 40 MG TAB PO SCH (09:47)
[2021-06-12] MEDS: Amoxicillin/Potassium Clav 875 MG TAB PO SCH ×2 (09:47→20:23)
[2021-06-12] MEDS: Saccharomyces boulardii 250 MG CAP PO SCH (09:48)
[2021-06-12] MEDS: hydrALAZINE 10 MG TAB PO SCH ×3 (09:49→20:22)
[2021-06-12] MEDS: Gabapentin 300 MG CAP PO SCH ×3 (09:49→20:24)
[2021-06-12] MEDS: HumaLOG 300 UNITS/3 ML VIAL SC PRN ×2 (11:55→16:36)
[2021-06-12] MEDS: HYDROcodone/Acetaminophen 5/325 mg Tablet PO PRN (17:48)
[2021-06-12] MEDS: traMADol HCl 50 MG TAB PO PRN (20:19)
[2021-06-12] MEDS: Famotidine 20 MG TAB PO SCH (20:23)
[2021-06-12] MEDS: Atorvastatin Calcium 40 MG TAB PO SCH (20:23)
[2021-06-12] MEDS: Loratadine 10 MG TAB PO SCH (20:23)
[2021-06-12] MEDS: traZODone HCl 50 MG TAB PO SCH (20:23)
[2021-06-13] MEDS: Gabapentin 300 MG CAP PO SCH ×3 (09:08→21:00)
[2021-06-13] MEDS: Aspirin 81 mg Enteric Coated Tablet PO SCH (09:09)
[2021-06-13] MEDS: Saccharomyces boulardii 250 MG CAP PO SCH (09:09)
[2021-06-13] MEDS: Furosemide 40 MG TAB PO SCH (09:09)
[2021-06-13] MEDS: Calcitriol 0.25 MCG CAP PO SCH (09:09)
[2021-06-13] MEDS: hydrALAZINE 10 MG TAB PO SCH ×3 (09:09→20:58)
[2021-06-13] MEDS: Amoxicillin/Potassium Clav 875 MG TAB PO SCH ×2 (09:10→20:58)
[2021-06-13] MEDS: Lantus 1000 UNITS/10 ML VIAL SC SCH ×2 (09:10→20:56)
[2021-06-13] MEDS: Amlodipine 5 MG TAB PO SCH (09:10)
[2021-06-13] MEDS: HumaLOG 300 UNITS/3 ML VIAL SC PRN ×2 (12:21→17:11)
[2021-06-13] MEDS: HYDROcodone/Acetaminophen 5/325 mg Tablet PO PRN (16:38)
[2021-06-13] MEDS: traMADol HCl 50 MG TAB PO PRN (20:54)
[2021-06-13] MEDS: Famotidine 20 MG TAB PO SCH (20:59)
[2021-06-13] MEDS: traZODone HCl 50 MG TAB PO SCH (20:59)
[2021-06-13] MEDS: Atorvastatin Calcium 40 MG TAB PO SCH (20:59)
[2021-06-13] MEDS: Loratadine 10 MG TAB PO SCH (21:00)
[2021-06-14] MEDS: Aspirin 81 mg Enteric Coated Tablet PO SCH (09:50)
[2021-06-14] MEDS: Amlodipine 5 MG TAB PO SCH (09:50)
[2021-06-14] MEDS: hydrALAZINE 10 MG TAB PO SCH ×3 (09:50→21:06)
[2021-06-14] MEDS: Gabapentin 300 MG CAP PO SCH ×3 (09:51→21:01)
[2021-06-14] MEDS: Calcitriol 0.25 MCG CAP PO SCH (09:52)
[2021-06-14] MEDS: Furosemide 40 MG TAB PO SCH (09:52)
[2021-06-14] MEDS: Saccharomyces boulardii 250 MG CAP PO SCH (09:52)
[2021-06-14] MEDS: Amoxicillin/Potassium Clav 875 MG TAB PO SCH ×2 (09:53→21:02)
[2021-06-14] MEDS: Lantus 1000 UNITS/10 ML VIAL SC SCH ×2 (09:56→22:39)
[2021-06-14] MEDS: HumaLOG 300 UNITS/3 ML VIAL SC PRN ×2 (11:59→18:12)
[2021-06-14] MEDS: HYDROcodone/Acetaminophen 5/325 mg Tablet PO PRN (14:41)
[2021-06-14] MEDS: traZODone HCl 50 MG TAB PO SCH (21:02)
[2021-06-14] MEDS: Famotidine 20 MG TAB PO SCH (21:02)
[2021-06-14] MEDS: traMADol HCl 50 MG TAB PO PRN (21:05)
[2021-06-14] MEDS: Loratadine 10 MG TAB PO SCH (21:05)
[2021-06-14] MEDS: Atorvastatin Calcium 40 MG TAB PO SCH (21:05)
[2021-06-15] MEDS: HYDROcodone/Acetaminophen 5/325 mg Tablet PO PRN ×2 (09:00→18:33)
[2021-06-15] MEDS: Gabapentin 300 MG CAP PO SCH ×3 (09:00→20:35)
[2021-06-15] MEDS: Saccharomyces boulardii 250 MG CAP PO SCH (09:00)
[2021-06-15] MEDS: Amoxicillin/Potassium Clav 875 MG TAB PO SCH ×2 (09:01→20:36)
[2021-06-15] MEDS: Aspirin 81 mg Enteric Coated Tablet PO SCH (09:01)
[2021-06-15] MEDS: hydrALAZINE 10 MG TAB PO SCH ×3 (09:01→20:37)
[2021-06-15] MEDS: Furosemide 40 MG TAB PO SCH (09:01)
[2021-06-15] MEDS: Amlodipine 5 MG TAB PO SCH (09:01)
[2021-06-15] MEDS: Calcitriol 0.25 MCG CAP PO SCH (09:01)
[2021-06-15] MEDS: Lantus 1000 UNITS/10 ML VIAL SC SCH ×2 (09:02→20:34)
[2021-06-15] MEDS ORDERED: Acetaminophen 325 MG TAB PO PRN (13:16)
[2021-06-15] MEDS: HumaLOG 300 UNITS/3 ML VIAL SC PRN ×3 (13:20→20:34)
[2021-06-15] MEDS: Atorvastatin Calcium 40 MG TAB PO SCH (20:35)
[2021-06-15] MEDS: traZODone HCl 50 MG TAB PO SCH (20:36)
[2021-06-15] MEDS: Loratadine 10 MG TAB PO SCH (20:37)
[2021-06-15] MEDS: Famotidine 20 MG TAB PO SCH (20:37)
[2021-06-16] MEDS ORDERED: Polyethylene Glycol 3350 17 GM Packet PO SCH (09:00)
[2021-06-16] MEDS: HYDROcodone/Acetaminophen 5/325 mg Tablet PO PRN ×2 (09:22→20:23)
[2021-06-16] MEDS: Amlodipine 5 MG TAB PO SCH (09:23)
[2021-06-16] MEDS: Amoxicillin/Potassium Clav 875 MG TAB PO SCH ×2 (09:23→20:24)
[2021-06-16] MEDS: Aspirin 81 mg Enteric Coated Tablet PO SCH (09:24)
[2021-06-16] MEDS: Saccharomyces boulardii 250 MG CAP PO SCH (09:24)
[2021-06-16] MEDS: Calcitriol 0.25 MCG CAP PO SCH (09:24)
[2021-06-16] MEDS: Gabapentin 300 MG CAP PO SCH ×3 (09:25→20:24)
[2021-06-16] MEDS: hydrALAZINE 10 MG TAB PO SCH ×3 (09:26→20:24)
[2021-06-16] MEDS: Furosemide 40 MG TAB PO SCH (09:26)
[2021-06-16] MEDS: Lantus 1000 UNITS/10 ML VIAL SC SCH ×2 (09:28→20:30)
[2021-06-16] MEDS: HumaLOG 300 UNITS/3 ML VIAL SC PRN ×2 (12:24→17:19)
[2021-06-16] MEDS: DULAGLUTIDE 1.5 MG/0.5 ML SC SCH (12:29)
[2021-06-16] MEDS: Loratadine 10 MG TAB PO SCH (20:24)
[2021-06-16] MEDS: Famotidine 20 MG TAB PO SCH (20:24)
[2021-06-16] MEDS: Atorvastatin Calcium 40 MG TAB PO SCH (20:25)
[2021-06-16] MEDS: traZODone HCl 50 MG TAB PO SCH (20:25)
[2021-06-16 23:05] LABS: SARS-CoV-2 PCR by NAA Not Detected (NotDetected)
[2021-06-17] MEDS: Furosemide 40 MG TAB PO SCH (10:11)
[2021-06-17] MEDS: Amoxicillin/Potassium Clav 875 MG TAB PO SCH ×2 (10:11→21:05)
[2021-06-17] MEDS: Gabapentin 300 MG CAP PO SCH ×3 (10:12→21:03)
[2021-06-17] MEDS: Aspirin 81 mg Enteric Coated Tablet PO SCH (10:12)
[2021-06-17] MEDS: Saccharomyces boulardii 250 MG CAP PO SCH (10:12)
[2021-06-17] MEDS: Calcitriol 0.25 MCG CAP PO SCH (10:13)
[2021-06-17] MEDS: HYDROcodone/Acetaminophen 5/325 mg Tablet PO PRN ×2 (10:16→17:07)
[2021-06-17] MEDS: Lantus 1000 UNITS/10 ML VIAL SC SCH ×2 (10:17→21:02)
[2021-06-17] MEDS: hydrALAZINE 10 MG TAB PO SCH ×3 (10:18→21:05)
[2021-06-17] MEDS: Amlodipine 5 MG TAB PO SCH (10:18)
[2021-06-17] MEDS: HumaLOG 300 UNITS/3 ML VIAL SC PRN ×2 (12:48→17:08)
[2021-06-17] MEDS: Polyethylene Glycol 3350 17 GM Packet PO PRN (15:21)
[2021-06-17] MEDS: Atorvastatin Calcium 40 MG TAB PO SCH (21:04)
[2021-06-17] MEDS: Loratadine 10 MG TAB PO SCH (21:05)
[2021-06-17] MEDS: Famotidine 20 MG TAB PO SCH (21:05)
[2021-06-17] MEDS: traZODone HCl 50 MG TAB PO SCH (21:05)
[2021-06-18 05:25] LABS: #Basophils 0.1 thou/uL (0.0-0.2); #Eosinphils 0.2 thou/uL (0.0-0.7); #Lymphocytes 2.7 thou/uL (1.20-3.40); #Monocytes 0.4 thou/uL (0.11-0.59); #Neutrophils 3.8 thou/uL (1.40-6.50); %Basophils 0.9 % (0.0-1.0); %Eosinophils 3.4 % (0.0-10.0); %Lymphocytes 36.7 % (21.0-51.0); %Monocytes 6.1 % (0.0-10.0); Hemoglobin 10.7 g/dL (14.0-18.0); Mean Corpuscular HGB CONC 32.7 g/dL (32.0-36.0); Mean Corpuscular Hemoglobin 26.4 pg (27.0-31.0); Mean Corpuscular Volume 80.8 fL (78.0-98.0); Mean Platelet Volume 7.2 fL (7.4-10.4); Platelet Count 245 thou/uL (130-400); RBC Distribution Width 14.2 % (11.5-14.5); Red Blood Cell (RBC) Count 4.05 mill/uL (4.70-6.10); White Blood Cell (WBC) Count 7.2 thou/uL (4.8-10.8)
[2021-06-18 05:40] LABS: Anion Gap 12 mmol/L (10-20); BUN (Urea Nitrogen) 43 mg/dL (8.4-25.7); Calc. Creatinine Clearance 118 mL/min (70-130); Calcium 8.8 mg/dL (7.8-10.44); Carbon Dioxide 30 mmol/L (22-29); Chloride 103 mmol/L (98-107); Glucose 165 mg/dL (70-105); Potassium 3.9 mmol/L (3.5-5.1); Sodium 141 mmol/L (136-145)
[2021-06-18] MEDS: Lantus 1000 UNITS/10 ML VIAL SC SCH ×2 (09:10→21:53)
[2021-06-18] MEDS: Amlodipine 5 MG TAB PO SCH (09:11)
[2021-06-18] MEDS: Gabapentin 300 MG CAP PO SCH ×3 (09:12→21:56)
[2021-06-18] MEDS: Calcitriol 0.25 MCG CAP PO SCH (09:13)
[2021-06-18] MEDS: Amoxicillin/Potassium Clav 875 MG TAB PO SCH ×2 (09:13→21:54)
[2021-06-18] MEDS: Aspirin 81 mg Enteric Coated Tablet PO SCH (09:13)
[2021-06-18] MEDS: Saccharomyces boulardii 250 MG CAP PO SCH (09:13)
[2021-06-18] MEDS: Furosemide 40 MG TAB PO SCH (09:13)
[2021-06-18] MEDS: hydrALAZINE 10 MG TAB PO SCH ×3 (09:13→21:56)
[2021-06-18] MEDS: HumaLOG 300 UNITS/3 ML VIAL SC PRN ×3 (09:14→17:46)
[2021-06-18] MEDS: HYDROcodone/Acetaminophen 5/325 mg Tablet PO PRN (14:43)
[2021-06-18] MEDS: Famotidine 20 MG TAB PO SCH (21:54)
[2021-06-18] MEDS: traZODone HCl 50 MG TAB PO SCH (21:54)
[2021-06-18] MEDS: Atorvastatin Calcium 40 MG TAB PO SCH (21:57)
[2021-06-18] MEDS: traMADol HCl 50 MG TAB PO PRN (21:58)
[2021-06-18] MEDS: Loratadine 10 MG TAB PO SCH (21:58)
[2021-06-19] MEDS: Polyethylene Glycol 3350 17 GM Packet PO PRN (09:38)
[2021-06-19] MEDS: Amoxicillin/Potassium Clav 875 MG TAB PO SCH ×2 (09:39→21:02)
[2021-06-19] MEDS: Calcitriol 0.25 MCG CAP PO SCH (09:39)
[2021-06-19] MEDS: Gabapentin 300 MG CAP PO SCH ×3 (09:39→21:00)
[2021-06-19] MEDS: Aspirin 81 mg Enteric Coated Tablet PO SCH (09:39)
[2021-06-19] MEDS: hydrALAZINE 10 MG TAB PO SCH ×3 (09:39→21:02)
[2021-06-19] MEDS: Furosemide 40 MG TAB PO SCH (09:40)
[2021-06-19] MEDS: Amlodipine 5 MG TAB PO SCH (09:40)
[2021-06-19] MEDS: Saccharomyces boulardii 250 MG CAP PO SCH (09:41)
[2021-06-19] MEDS: Lantus 1000 UNITS/10 ML VIAL SC SCH ×2 (09:43→20:58)
[2021-06-19] MEDS: HumaLOG 300 UNITS/3 ML VIAL SC PRN ×3 (09:50→17:16)
[2021-06-19] MEDS: HYDROcodone/Acetaminophen 5/325 mg Tablet PO PRN ×2 (15:17→22:09)
[2021-06-19] MEDS: Famotidine 20 MG TAB PO SCH (21:00)
[2021-06-19] MEDS: Atorvastatin Calcium 40 MG TAB PO SCH (21:02)
[2021-06-19] MEDS: Loratadine 10 MG TAB PO SCH (21:03)
[2021-06-19] MEDS: traZODone HCl 50 MG TAB PO SCH (21:03)
[2021-06-20] MEDS: Gabapentin 300 MG CAP PO SCH ×3 (08:20→20:48)
[2021-06-20] MEDS: Saccharomyces boulardii 250 MG CAP PO SCH (08:21)
[2021-06-20] MEDS: Amoxicillin/Potassium Clav 875 MG TAB PO SCH ×2 (08:21→20:51)
[2021-06-20] MEDS: Aspirin 81 mg Enteric Coated Tablet PO SCH (08:22)
[2021-06-20] MEDS: Amlodipine 5 MG TAB PO SCH (08:22)
[2021-06-20] MEDS: Furosemide 40 MG TAB PO SCH (08:23)
[2021-06-20] MEDS: hydrALAZINE 10 MG TAB PO SCH ×3 (08:23→20:50)
[2021-06-20] MEDS: Calcitriol 0.25 MCG CAP PO SCH (08:23)
[2021-06-20] MEDS: Milk Of Magnesia 30 ML UDCUP PO PRN (08:24)
[2021-06-20] MEDS: HumaLOG 300 UNITS/3 ML VIAL SC PRN ×3 (08:26→17:04)
[2021-06-20] MEDS: Lantus 1000 UNITS/10 ML VIAL SC SCH ×2 (08:27→20:46)
[2021-06-20] MEDS ORDERED: Bisacodyl 10 MG SUPP PR PRN (18:15)
[2021-06-20] MEDS: Famotidine 20 MG TAB PO SCH (20:50)
[2021-06-20] MEDS: Atorvastatin Calcium 40 MG TAB PO SCH (20:51)
[2021-06-20] MEDS: Loratadine 10 MG TAB PO SCH (20:51)
[2021-06-20] MEDS: traZODone HCl 50 MG TAB PO SCH (20:51)
[2021-06-20] MEDS: traMADol HCl 50 MG TAB PO PRN (23:31)
[2021-06-21] MEDS: HYDROcodone/Acetaminophen 5/325 mg Tablet PO PRN (08:24)
[2021-06-21] MEDS: Lantus 1000 UNITS/10 ML VIAL SC SCH ×2 (08:24→21:08)
[2021-06-21] MEDS: Amoxicillin/Potassium Clav 875 MG TAB PO SCH ×2 (08:24→21:04)
[2021-06-21] MEDS: Furosemide 40 MG TAB PO SCH (08:25)
[2021-06-21] MEDS: Calcitriol 0.25 MCG CAP PO SCH (08:25)
[2021-06-21] MEDS: Aspirin 81 mg Enteric Coated Tablet PO SCH (08:25)
[2021-06-21] MEDS: Saccharomyces boulardii 250 MG CAP PO SCH (08:25)
[2021-06-21] MEDS: hydrALAZINE 10 MG TAB PO SCH ×3 (08:25→21:03)
[2021-06-21] MEDS: Gabapentin 300 MG CAP PO SCH ×3 (08:25→21:04)
[2021-06-21] MEDS: Amlodipine 5 MG TAB PO SCH (08:28)
[2021-06-21] MEDS: Polyethylene Glycol 3350 17 GM Packet PO PRN (08:29)
[2021-06-21] MEDS: traMADol HCl 50 MG TAB PO PRN (13:07)
[2021-06-21] MEDS: HumaLOG 300 UNITS/3 ML VIAL SC PRN ×2 (13:08→17:26)
[2021-06-21] MEDS: Atorvastatin Calcium 40 MG TAB PO SCH (21:02)
[2021-06-21] MEDS: Loratadine 10 MG TAB PO SCH (21:03)
[2021-06-21] MEDS: traZODone HCl 50 MG TAB PO SCH (21:04)
[2021-06-21] MEDS: Famotidine 20 MG TAB PO SCH (21:04)
[2021-06-22] MEDS: Saccharomyces boulardii 250 MG CAP PO SCH (08:52)
[2021-06-22] MEDS: Lantus 1000 UNITS/10 ML VIAL SC SCH ×2 (08:52→21:03)
[2021-06-22] MEDS: Amoxicillin/Potassium Clav 875 MG TAB PO SCH ×2 (08:52→21:06)
[2021-06-22] MEDS: Amlodipine 5 MG TAB PO SCH (08:52)
[2021-06-22] MEDS: hydrALAZINE 10 MG TAB PO SCH ×3 (08:53→21:05)
[2021-06-22] MEDS: Furosemide 40 MG TAB PO SCH (08:53)
[2021-06-22] MEDS: Gabapentin 300 MG CAP PO SCH ×3 (08:53→21:06)
[2021-06-22] MEDS: Aspirin 81 mg Enteric Coated Tablet PO SCH (08:53)
[2021-06-22] MEDS: HumaLOG 300 UNITS/3 ML VIAL SC PRN ×3 (08:54→16:33)
[2021-06-22] MEDS: Calcitriol 0.25 MCG CAP PO SCH (08:54)
[2021-06-22] MEDS: HYDROcodone/Acetaminophen 5/325 mg Tablet PO PRN (12:24)
[2021-06-22] MEDS: Polyethylene Glycol 3350 17 GM Packet PO PRN (12:25)
[2021-06-22] MEDS: Atorvastatin Calcium 40 MG TAB PO SCH (21:06)
[2021-06-22] MEDS: traZODone HCl 50 MG TAB PO SCH (21:06)
[2021-06-22] MEDS: Loratadine 10 MG TAB PO SCH (21:06)
[2021-06-22] MEDS: Famotidine 20 MG TAB PO SCH (21:06)
[2021-06-23] MEDS: hydrALAZINE 10 MG TAB PO SCH ×3 (09:09→20:41)
[2021-06-23] MEDS: Gabapentin 300 MG CAP PO SCH ×3 (09:10→20:42)
[2021-06-23] MEDS: Saccharomyces boulardii 250 MG CAP PO SCH (09:11)
[2021-06-23] MEDS: Furosemide 40 MG TAB PO SCH (09:11)
[2021-06-23] MEDS: Aspirin 81 mg Enteric Coated Tablet PO SCH (09:11)
[2021-06-23] MEDS: Amoxicillin/Potassium Clav 875 MG TAB PO SCH ×2 (09:11→20:42)
[2021-06-23] MEDS: Amlodipine 5 MG TAB PO SCH (09:11)
[2021-06-23] MEDS: Milk Of Magnesia 30 ML UDCUP PO PRN (09:11)
[2021-06-23] MEDS: Calcitriol 0.25 MCG CAP PO SCH (09:11)
[2021-06-23] MEDS: Lantus 1000 UNITS/10 ML VIAL SC SCH ×2 (09:19→20:39)
[2021-06-23] MEDS: DULAGLUTIDE 1.5 MG/0.5 ML SC SCH (09:21)
[2021-06-23] MEDS: HumaLOG 300 UNITS/3 ML VIAL SC PRN ×2 (13:09→17:23)
[2021-06-23] MEDS: HYDROcodone/Acetaminophen 5/325 mg Tablet PO PRN (14:45)
[2021-06-23] MEDS: traZODone HCl 50 MG TAB PO SCH (20:40)
[2021-06-23] MEDS: Atorvastatin Calcium 40 MG TAB PO SCH (20:41)
[2021-06-23] MEDS: Famotidine 20 MG TAB PO SCH (20:42)
[2021-06-23] MEDS: Loratadine 10 MG TAB PO SCH (20:42)
[2021-06-23 20:50] LABS: SARS-CoV-2 PCR by NAA Not Detected (NotDetected)
[2021-06-23] MEDS: traMADol HCl 50 MG TAB PO PRN (22:44)
[2021-06-24] MEDS: Lantus 1000 UNITS/10 ML VIAL SC SCH ×2 (08:28→20:46)
[2021-06-24] MEDS: Amlodipine 5 MG TAB PO SCH (08:30)
[2021-06-24] MEDS: Amoxicillin/Potassium Clav 875 MG TAB PO SCH ×2 (08:30→20:43)
[2021-06-24] MEDS: Gabapentin 300 MG CAP PO SCH ×3 (08:31→20:41)
[2021-06-24] MEDS: Aspirin 81 mg Enteric Coated Tablet PO SCH (08:31)
[2021-06-24] MEDS: Furosemide 40 MG TAB PO SCH (08:31)
[2021-06-24] MEDS: hydrALAZINE 10 MG TAB PO SCH ×3 (08:32→20:44)
[2021-06-24] MEDS: Calcitriol 0.25 MCG CAP PO SCH (08:32)
[2021-06-24] MEDS: Saccharomyces boulardii 250 MG CAP PO SCH (08:34)
[2021-06-24] MEDS: HYDROcodone/Acetaminophen 5/325 mg Tablet PO PRN (11:34)
[2021-06-24] MEDS: HumaLOG 300 UNITS/3 ML VIAL SC PRN ×3 (12:01→20:46)
[2021-06-24] MEDS: Polyethylene Glycol 3350 17 GM Packet PO PRN (15:59)
[2021-06-24] MEDS: traMADol HCl 50 MG TAB PO PRN (20:40)
[2021-06-24] MEDS: Atorvastatin Calcium 40 MG TAB PO SCH (20:42)
[2021-06-24] MEDS: Famotidine 20 MG TAB PO SCH (20:43)
[2021-06-24] MEDS: traZODone HCl 50 MG TAB PO SCH (20:43)
[2021-06-24] MEDS: Loratadine 10 MG TAB PO SCH (20:44)
[2021-06-25 06:47] LABS: #Basophils 0.1 thou/uL (0.0-0.2); #Eosinphils 0.2 thou/uL (0.0-0.7); #Lymphocytes 2.2 thou/uL (1.20-3.40); #Monocytes 0.5 thou/uL (0.11-0.59); #Neutrophils 5.4 thou/uL (1.40-6.50); %Eosinophils 2.9 % (0.0-10.0); %Monocytes 6.1 % (0.0-10.0); %Neutrophils 64.1 % (42.0-75.0); Hemoglobin 11.1 g/dL (14.0-18.0); Mean Corpuscular HGB CONC 32.2 g/dL (32.0-36.0); Mean Corpuscular Hemoglobin 26.2 pg (27.0-31.0); Mean Corpuscular Volume 81.5 fL (78.0-98.0); Mean Platelet Volume 7.6 fL (7.4-10.4); Platelet Count 262 thou/uL (130-400); RBC Distribution Width 13.7 % (11.5-14.5); Red Blood Cell (RBC) Count 4.22 mill/uL (4.70-6.10); White Blood Cell (WBC) Count 8.4 thou/uL (4.8-10.8)
[2021-06-25 06:51] LABS: Anion Gap 15 mmol/L (10-20); BUN (Urea Nitrogen) 43 mg/dL (8.4-25.7); Calc. Creatinine Clearance 117 mL/min (70-130); Calcium 8.9 mg/dL (7.8-10.44); Carbon Dioxide 30 mmol/L (22-29); Chloride 100 mmol/L (98-107); Glucose 180 mg/dL (70-105); Potassium 4.1 mmol/L (3.5-5.1); Sodium 141 mmol/L (136-145)
[2021-06-25] MEDS: Amoxicillin/Potassium Clav 875 MG TAB PO SCH ×2 (08:27→20:16)
[2021-06-25] MEDS: Amlodipine 5 MG TAB PO SCH (08:27)
[2021-06-25] MEDS: Aspirin 81 mg Enteric Coated Tablet PO SCH (08:27)
[2021-06-25] MEDS: Polyethylene Glycol 3350 17 GM Packet PO PRN (08:27)
[2021-06-25] MEDS: Gabapentin 300 MG CAP PO SCH ×3 (08:28→21:18)
[2021-06-25] MEDS: hydrALAZINE 10 MG TAB PO SCH ×3 (08:28→20:17)
[2021-06-25] MEDS: Saccharomyces boulardii 250 MG CAP PO SCH (08:28)
[2021-06-25] MEDS: Furosemide 40 MG TAB PO SCH (08:29)
[2021-06-25] MEDS: Lantus 1000 UNITS/10 ML VIAL SC SCH ×2 (08:29→20:19)
[2021-06-25] MEDS: Calcitriol 0.25 MCG CAP PO SCH (08:29)
[2021-06-25] MEDS: HumaLOG 300 UNITS/3 ML VIAL SC PRN ×3 (12:12→20:22)
[2021-06-25] MEDS: HYDROcodone/Acetaminophen 5/325 mg Tablet PO PRN (13:07)
[2021-06-25] MEDS: traZODone HCl 50 MG TAB PO SCH (20:16)
[2021-06-25] MEDS: Loratadine 10 MG TAB PO SCH (20:17)
[2021-06-25] MEDS: Atorvastatin Calcium 40 MG TAB PO SCH (20:17)
[2021-06-25] MEDS: traMADol HCl 50 MG TAB PO PRN (20:28)
[2021-06-25] MEDS: Famotidine 20 MG TAB PO SCH (21:16)
[2021-06-26] MEDS: Aspirin 81 mg Enteric Coated Tablet PO SCH (08:18)
[2021-06-26] MEDS: Amlodipine 5 MG TAB PO SCH (08:18)
[2021-06-26] MEDS: hydrALAZINE 10 MG TAB PO SCH ×3 (08:18→20:31)
[2021-06-26] MEDS: Calcitriol 0.25 MCG CAP PO SCH (08:18)
[2021-06-26] MEDS: Gabapentin 300 MG CAP PO SCH ×3 (08:19→20:29)
[2021-06-26] MEDS: Furosemide 40 MG TAB PO SCH (08:19)
[2021-06-26] MEDS: Saccharomyces boulardii 250 MG CAP PO SCH (08:19)
[2021-06-26] MEDS: Lantus 1000 UNITS/10 ML VIAL SC SCH ×2 (08:20→20:35)
[2021-06-26] MEDS: HumaLOG 300 UNITS/3 ML VIAL SC PRN ×2 (08:21→17:36)
[2021-06-26] MEDS: traMADol HCl 50 MG TAB PO PRN (12:07)
[2021-06-26] MEDS: Famotidine 20 MG TAB PO SCH (20:29)
[2021-06-26] MEDS: Atorvastatin Calcium 40 MG TAB PO SCH (20:30)
[2021-06-26] MEDS: traZODone HCl 50 MG TAB PO SCH (20:31)
[2021-06-26] MEDS: Loratadine 10 MG TAB PO SCH (20:32)
[2021-06-26] MEDS: HYDROcodone/Acetaminophen 5/325 mg Tablet PO PRN (20:32)
[2021-06-27] MEDS: Saccharomyces boulardii 250 MG CAP PO SCH (07:59)
[2021-06-27] MEDS: hydrALAZINE 10 MG TAB PO SCH ×3 (07:59→20:52)
[2021-06-27] MEDS: Gabapentin 300 MG CAP PO SCH ×3 (07:59→20:49)
[2021-06-27] MEDS: Aspirin 81 mg Enteric Coated Tablet PO SCH (07:59)
[2021-06-27] MEDS: Calcitriol 0.25 MCG CAP PO SCH (07:59)
[2021-06-27] MEDS: Amlodipine 5 MG TAB PO SCH (08:00)
[2021-06-27] MEDS: Furosemide 40 MG TAB PO SCH (08:00)
[2021-06-27] MEDS: Lantus 1000 UNITS/10 ML VIAL SC SCH ×2 (08:05→22:08)
[2021-06-27] MEDS: HumaLOG 300 UNITS/3 ML VIAL SC PRN ×3 (12:39→20:55)
[2021-06-27] MEDS: HYDROcodone/Acetaminophen 5/325 mg Tablet PO PRN (13:57)
[2021-06-27] MEDS: Atorvastatin Calcium 40 MG TAB PO SCH (20:50)
[2021-06-27] MEDS: Famotidine 20 MG TAB PO SCH (20:50)
[2021-06-27] MEDS: traZODone HCl 50 MG TAB PO SCH (20:51)
[2021-06-27] MEDS: Loratadine 10 MG TAB PO SCH (20:52)
[2021-06-27] MEDS: traMADol HCl 50 MG TAB PO PRN (20:52)
[2021-06-28] MEDS: Lantus 1000 UNITS/10 ML VIAL SC SCH ×2 (08:36→20:58)
[2021-06-28] MEDS: hydrALAZINE 10 MG TAB PO SCH ×3 (08:37→20:48)
[2021-06-28] MEDS: Aspirin 81 mg Enteric Coated Tablet PO SCH (08:37)
[2021-06-28] MEDS: Calcitriol 0.25 MCG CAP PO SCH (08:38)
[2021-06-28] MEDS: Gabapentin 300 MG CAP PO SCH ×3 (08:38→20:47)
[2021-06-28] MEDS: Amlodipine 5 MG TAB PO SCH (08:38)
[2021-06-28] MEDS: Furosemide 40 MG TAB PO SCH (08:38)
[2021-06-28] MEDS: Saccharomyces boulardii 250 MG CAP PO SCH (08:39)
[2021-06-28] MEDS: HumaLOG 300 UNITS/3 ML VIAL SC PRN ×3 (08:41→17:24)
[2021-06-28] MEDS: HYDROcodone/Acetaminophen 5/325 mg Tablet PO PRN ×2 (09:30→17:27)
[2021-06-28] MEDS: Atorvastatin Calcium 40 MG TAB PO SCH (20:46)
[2021-06-28] MEDS: Loratadine 10 MG TAB PO SCH (20:47)
[2021-06-28] MEDS: Famotidine 20 MG TAB PO SCH (20:49)
[2021-06-28] MEDS: traZODone HCl 50 MG TAB PO SCH (20:50)
[2021-06-29] MEDS: Lantus 1000 UNITS/10 ML VIAL SC SCH ×2 (08:50→20:27)
[2021-06-29] MEDS: HYDROcodone/Acetaminophen 5/325 mg Tablet PO PRN (08:53)
[2021-06-29] MEDS: Aspirin 81 mg Enteric Coated Tablet PO SCH (08:54)
[2021-06-29] MEDS: Furosemide 40 MG TAB PO SCH (08:56)
[2021-06-29] MEDS: hydrALAZINE 10 MG TAB PO SCH ×3 (08:56→20:30)
[2021-06-29] MEDS: Calcitriol 0.25 MCG CAP PO SCH (08:57)
[2021-06-29] MEDS: Gabapentin 300 MG CAP PO SCH ×3 (08:57→20:31)
[2021-06-29] MEDS: Amlodipine 5 MG TAB PO SCH (08:57)
[2021-06-29] MEDS: Saccharomyces boulardii 250 MG CAP PO SCH (08:57)
[2021-06-29] MEDS: HumaLOG 300 UNITS/3 ML VIAL SC PRN ×2 (12:38→17:08)
[2021-06-29] MEDS: traMADol HCl 50 MG TAB PO PRN (15:10)
[2021-06-29] MEDS: Atorvastatin Calcium 40 MG TAB PO SCH (20:29)
[2021-06-29] MEDS: traZODone HCl 50 MG TAB PO SCH (20:30)
[2021-06-29] MEDS: Loratadine 10 MG TAB PO SCH (20:31)
[2021-06-29] MEDS: Famotidine 20 MG TAB PO SCH (20:31)
[2021-06-30] MEDS: Gabapentin 300 MG CAP PO SCH ×3 (08:33→20:47)
[2021-06-30] MEDS: Aspirin 81 mg Enteric Coated Tablet PO SCH (08:34)
[2021-06-30] MEDS: Saccharomyces boulardii 250 MG CAP PO SCH (08:34)
[2021-06-30] MEDS: Calcitriol 0.25 MCG CAP PO SCH (08:34)
[2021-06-30] MEDS: hydrALAZINE 10 MG TAB PO SCH ×3 (08:34→20:50)
[2021-06-30] MEDS: Amlodipine 5 MG TAB PO SCH (08:36)
[2021-06-30] MEDS: Furosemide 40 MG TAB PO SCH (08:36)
[2021-06-30] MEDS: Lantus 1000 UNITS/10 ML VIAL SC SCH ×2 (08:38→21:06)
[2021-06-30] MEDS: DULAGLUTIDE 1.5 MG/0.5 ML SC SCH (08:41)
[2021-06-30] MEDS: HYDROcodone/Acetaminophen 5/325 mg Tablet PO PRN (11:36)
[2021-06-30] MEDS: HumaLOG 300 UNITS/3 ML VIAL SC PRN ×2 (12:47→17:51)
[2021-06-30] MEDS: Famotidine 20 MG TAB PO SCH (20:48)
[2021-06-30] MEDS: traMADol HCl 50 MG TAB PO PRN (20:48)
[2021-06-30] MEDS: traZODone HCl 50 MG TAB PO SCH (20:49)
[2021-06-30] MEDS: Atorvastatin Calcium 40 MG TAB PO SCH (20:49)
[2021-06-30] MEDS: Loratadine 10 MG TAB PO SCH (20:50)
[2021-06-30 22:07] LABS: SARS-CoV-2 PCR by NAA Not Detected (NotDetected)
[2021-07-01] MEDS: Gabapentin 300 MG CAP PO SCH ×3 (09:12→20:09)
[2021-07-01] MEDS: Amlodipine 5 MG TAB PO SCH (09:13)
[2021-07-01] MEDS: Calcitriol 0.25 MCG CAP PO SCH (09:14)
[2021-07-01] MEDS: Aspirin 81 mg Enteric Coated Tablet PO SCH (09:14)
[2021-07-01] MEDS: Saccharomyces boulardii 250 MG CAP PO SCH (09:14)
[2021-07-01] MEDS: hydrALAZINE 10 MG TAB PO SCH ×3 (09:14→20:12)
[2021-07-01] MEDS: Furosemide 40 MG TAB PO SCH (09:14)
[2021-07-01] MEDS: Lantus 1000 UNITS/10 ML VIAL SC SCH ×2 (09:15→20:17)
[2021-07-01] MEDS: HumaLOG 300 UNITS/3 ML VIAL SC PRN ×2 (12:21→16:56)
[2021-07-01] MEDS: Atorvastatin Calcium 40 MG TAB PO SCH (20:10)
[2021-07-01] MEDS: traMADol HCl 50 MG TAB PO PRN (20:10)
[2021-07-01] MEDS: Famotidine 20 MG TAB PO SCH (20:11)
[2021-07-01] MEDS: traZODone HCl 50 MG TAB PO SCH (20:11)
[2021-07-01] MEDS: Loratadine 10 MG TAB PO SCH (20:12)
[2021-07-02 05:45] LABS: #Basophils 0.1 thou/uL (0.0-0.2); #Eosinphils 0.2 thou/uL (0.0-0.7); #Lymphocytes 2.6 thou/uL (1.20-3.40); #Monocytes 0.4 thou/uL (0.11-0.59); #Neutrophils 4.3 thou/uL (1.40-6.50); %Basophils 0.7 % (0.0-1.0); %Eosinophils 2.8 % (0.0-10.0); %Lymphocytes 34.2 % (21.0-51.0); %Monocytes 5.4 % (0.0-10.0); %Neutrophils 56.9 % (42.0-75.0); Hemoglobin 10.8 g/dL (14.0-18.0); Mean Corpuscular HGB CONC 32.6 g/dL (32.0-36.0); Mean Corpuscular Hemoglobin 26.2 pg (27.0-31.0); Mean Corpuscular Volume 80.3 fL (78.0-98.0); Mean Platelet Volume 8.3 fL (7.4-10.4); Platelet Count 241 thou/uL (130-400); RBC Distribution Width 14.7 % (11.5-14.5); Red Blood Cell (RBC) Count 4.14 mill/uL (4.70-6.10); White Blood Cell (WBC) Count 7.5 thou/uL (4.8-10.8)
[2021-07-02 05:54] LABS: Anion Gap 12 mmol/L (10-20); BUN (Urea Nitrogen) 40 mg/dL (8.4-25.7); Calc. Creatinine Clearance 131 mL/min (70-130); Calcium 8.7 mg/dL (7.8-10.44); Carbon Dioxide 29 mmol/L (22-29); Chloride 103 mmol/L (98-107); Glucose 141 mg/dL (70-105); Potassium 3.6 mmol/L (3.5-5.1); Sodium 140 mmol/L (136-145)
[2021-07-02] MEDS: Lantus 1000 UNITS/10 ML VIAL SC SCH ×2 (09:46→20:33)
[2021-07-02] MEDS: hydrALAZINE 10 MG TAB PO SCH ×3 (09:47→20:37)
[2021-07-02] MEDS: Gabapentin 300 MG CAP PO SCH ×3 (09:47→20:34)
[2021-07-02] MEDS: Saccharomyces boulardii 250 MG CAP PO SCH (09:48)
[2021-07-02] MEDS: Aspirin 81 mg Enteric Coated Tablet PO SCH (09:48)
[2021-07-02] MEDS: Amlodipine 5 MG TAB PO SCH (09:48)
[2021-07-02] MEDS: Furosemide 40 MG TAB PO SCH (09:49)
[2021-07-02] MEDS: Calcitriol 0.25 MCG CAP PO SCH (09:49)
[2021-07-02] MEDS: HumaLOG 300 UNITS/3 ML VIAL SC PRN (17:17)
[2021-07-02] MEDS: traZODone HCl 50 MG TAB PO SCH (20:36)
[2021-07-02] MEDS: Famotidine 20 MG TAB PO SCH (20:37)
[2021-07-02] MEDS: traMADol HCl 50 MG TAB PO PRN (20:39)
[2021-07-02] MEDS: Loratadine 10 MG TAB PO SCH (20:39)
[2021-07-02] MEDS: Atorvastatin Calcium 40 MG TAB PO SCH (20:51)
[2021-07-03] MEDS: HumaLOG 300 UNITS/3 ML VIAL SC PRN ×3 (08:06→17:03)
[2021-07-03] MEDS: Aspirin 81 mg Enteric Coated Tablet PO SCH (08:50)
[2021-07-03] MEDS: Saccharomyces boulardii 250 MG CAP PO SCH (08:50)
[2021-07-03] MEDS: Gabapentin 300 MG CAP PO SCH ×3 (08:51→20:31)
[2021-07-03] MEDS: Calcitriol 0.25 MCG CAP PO SCH (08:52)
[2021-07-03] MEDS: hydrALAZINE 10 MG TAB PO SCH ×3 (08:52→20:33)
[2021-07-03] MEDS: Amlodipine 5 MG TAB PO SCH (08:53)
[2021-07-03] MEDS: Furosemide 40 MG TAB PO SCH (08:53)
[2021-07-03] MEDS: Lantus 1000 UNITS/10 ML VIAL SC SCH ×2 (08:56→20:28)
[2021-07-03] MEDS: traMADol HCl 50 MG TAB PO PRN (20:29)
[2021-07-03] MEDS: Loratadine 10 MG TAB PO SCH (20:33)
[2021-07-03] MEDS: traZODone HCl 50 MG TAB PO SCH (20:33)
[2021-07-03] MEDS: Atorvastatin Calcium 40 MG TAB PO SCH (20:34)
[2021-07-03] MEDS: Famotidine 20 MG TAB PO SCH (20:34)
[2021-07-04] MEDS: Aspirin 81 mg Enteric Coated Tablet PO SCH (09:33)
[2021-07-04] MEDS: Gabapentin 300 MG CAP PO SCH ×3 (09:33→20:34)
[2021-07-04] MEDS: hydrALAZINE 10 MG TAB PO SCH ×3 (09:35→20:37)
[2021-07-04] MEDS: Saccharomyces boulardii 250 MG CAP PO SCH (09:35)
[2021-07-04] MEDS: Calcitriol 0.25 MCG CAP PO SCH (09:35)
[2021-07-04] MEDS: Furosemide 40 MG TAB PO SCH (09:36)
[2021-07-04] MEDS: Amlodipine 5 MG TAB PO SCH (09:36)
[2021-07-04] MEDS: Lantus 1000 UNITS/10 ML VIAL SC SCH ×2 (09:38→20:39)
[2021-07-04] MEDS: HumaLOG 300 UNITS/3 ML VIAL SC PRN ×2 (12:55→18:12)
[2021-07-04 15:30] LABS: Bilirubin Negative (Negative); Blood, Urine Negative (Negative); Clarity Cloudy (Clear); Glucose, Urine (Dipstick) Negative (Negative); Ketone, Urine Negative (Negative); Leukocyte Moderate (Negative); Nitrite Negative (Negative); Protein, Urine (Dipstick) 100 mg/dL (Neg-Trace); Urobilinogen 0.2 mg/dL (Less than 2)
[2021-07-04 15:36] LABS: Bacteria/HPF 2+ HPF (None Seen); RBC/HPF 0-3 HPF (0-3); Renal Epithelial 0-3 HPF (None Seen); Squamous Epithelial 0-3 HPF (0-3); Urine Culture Reflex Yes Yes
[2021-07-04] MEDS: Famotidine 20 MG TAB PO SCH (20:35)
[2021-07-04] MEDS: Atorvastatin Calcium 40 MG TAB PO SCH (20:36)
[2021-07-04] MEDS: traZODone HCl 50 MG TAB PO SCH (20:37)
[2021-07-04] MEDS: Loratadine 10 MG TAB PO SCH (20:38)
[2021-07-04] MEDS: traMADol HCl 50 MG TAB PO PRN (20:38)
[2021-07-05] MEDS: Gabapentin 300 MG CAP PO SCH ×3 (07:53→21:38)
[2021-07-05] MEDS: Aspirin 81 mg Enteric Coated Tablet PO SCH (07:53)
[2021-07-05] MEDS: Saccharomyces boulardii 250 MG CAP PO SCH (07:53)
[2021-07-05] MEDS: Furosemide 40 MG TAB PO SCH (07:54)
[2021-07-05] MEDS: hydrALAZINE 10 MG TAB PO SCH ×3 (07:54→21:34)
[2021-07-05] MEDS: Calcitriol 0.25 MCG CAP PO SCH (07:54)
[2021-07-05] MEDS: Sulfameth/Trimethoprim DS 800-160mg TAB PO SCH ×2 (07:54→21:37)
[2021-07-05] MEDS: Amlodipine 5 MG TAB PO SCH (07:54)
[2021-07-05] MEDS: HYDROcodone/Acetaminophen 5/325 mg Tablet PO PRN ×2 (07:55→16:53)
[2021-07-05] MEDS: Lantus 1000 UNITS/10 ML VIAL SC SCH ×2 (07:58→21:39)
[2021-07-05] MEDS: HumaLOG 300 UNITS/3 ML VIAL SC PRN ×3 (08:00→16:49)
[2021-07-05] MEDS: Famotidine 20 MG TAB PO SCH (21:36)
[2021-07-05] MEDS: Atorvastatin Calcium 40 MG TAB PO SCH (21:36)
[2021-07-05] MEDS: traZODone HCl 50 MG TAB PO SCH (21:37)
[2021-07-05] MEDS: Loratadine 10 MG TAB PO SCH (21:52)
[2021-07-06] MEDS: HumaLOG 300 UNITS/3 ML VIAL SC PRN ×4 (08:59→21:45)
[2021-07-06] MEDS: Lantus 1000 UNITS/10 ML VIAL SC SCH ×2 (08:59→21:43)
[2021-07-06] MEDS: Furosemide 40 MG TAB PO SCH (09:01)
[2021-07-06] MEDS: Saccharomyces boulardii 250 MG CAP PO SCH (09:01)
[2021-07-06] MEDS: Gabapentin 300 MG CAP PO SCH ×3 (09:01→21:41)
[2021-07-06] MEDS: HYDROcodone/Acetaminophen 5/325 mg Tablet PO PRN ×2 (09:02→17:45)
[2021-07-06] MEDS: Calcitriol 0.25 MCG CAP PO SCH (09:02)
[2021-07-06] MEDS: Aspirin 81 mg Enteric Coated Tablet PO SCH (09:03)
[2021-07-06] MEDS: Sulfameth/Trimethoprim DS 800-160mg TAB PO SCH ×2 (09:03→21:41)
[2021-07-06] MEDS: Amlodipine 5 MG TAB PO SCH (09:03)
[2021-07-06] MEDS: hydrALAZINE 10 MG TAB PO SCH ×3 (09:05→21:42)
[2021-07-06] MEDS: traZODone HCl 50 MG TAB PO SCH (21:41)
[2021-07-06] MEDS: Loratadine 10 MG TAB PO SCH (21:42)
[2021-07-06] MEDS: Famotidine 20 MG TAB PO SCH (21:43)
[2021-07-06] MEDS: Atorvastatin Calcium 40 MG TAB PO SCH (21:43)
[2021-07-07] MEDS: Amlodipine 5 MG TAB PO SCH (10:12)
[2021-07-07] MEDS: hydrALAZINE 10 MG TAB PO SCH ×3 (10:13→20:10)
[2021-07-07] MEDS: Saccharomyces boulardii 250 MG CAP PO SCH (10:14)
[2021-07-07] MEDS: Furosemide 40 MG TAB PO SCH (10:14)
[2021-07-07] MEDS: Sulfameth/Trimethoprim DS 800-160mg TAB PO SCH ×2 (10:14→20:10)
[2021-07-07] MEDS: Calcitriol 0.25 MCG CAP PO SCH (10:15)
[2021-07-07] MEDS: Gabapentin 300 MG CAP PO SCH ×3 (10:15→20:10)
[2021-07-07] MEDS: Lantus 1000 UNITS/10 ML VIAL SC SCH ×2 (10:16→20:11)
[2021-07-07] MEDS: Aspirin 81 mg Enteric Coated Tablet PO SCH (10:16)
[2021-07-07] MEDS: HYDROcodone/Acetaminophen 5/325 mg Tablet PO PRN (12:16)
[2021-07-07] MEDS: DULAGLUTIDE 1.5 MG/0.5 ML SC SCH (12:17)
[2021-07-07] MEDS: HumaLOG 300 UNITS/3 ML VIAL SC PRN ×3 (12:19→20:13)
[2021-07-07 19:36] LABS: SARS-CoV-2 PCR by NAA Not Detected (NotDetected)
[2021-07-07] MEDS: traZODone HCl 50 MG TAB PO SCH (20:09)
[2021-07-07] MEDS: Atorvastatin Calcium 40 MG TAB PO SCH (20:09)
[2021-07-07] MEDS: Famotidine 20 MG TAB PO SCH (20:11)
[2021-07-07] MEDS: Loratadine 10 MG TAB PO SCH (20:15)
[2021-07-08] MEDS: Gabapentin 300 MG CAP PO SCH ×3 (09:07→20:56)
[2021-07-08] MEDS: Calcitriol 0.25 MCG CAP PO SCH (09:07)
[2021-07-08] MEDS: Amlodipine 5 MG TAB PO SCH (09:08)
[2021-07-08] MEDS: Nitrofurantoin Monohyd/M-Cryst 100 MG CAP PO SCH ×2 (09:09→20:56)
[2021-07-08] MEDS: Aspirin 81 mg Enteric Coated Tablet PO SCH (09:09)
[2021-07-08] MEDS: Furosemide 40 MG TAB PO SCH (09:09)
[2021-07-08] MEDS: hydrALAZINE 10 MG TAB PO SCH ×3 (09:09→20:55)
[2021-07-08] MEDS: Saccharomyces boulardii 250 MG CAP PO SCH (09:10)
[2021-07-08] MEDS: Lantus 1000 UNITS/10 ML VIAL SC SCH ×2 (09:13→21:01)
[2021-07-08] MEDS: HumaLOG 300 UNITS/3 ML VIAL SC PRN ×3 (09:14→17:36)
[2021-07-08] MEDS: HYDROcodone/Acetaminophen 5/325 mg Tablet PO PRN (14:12)
[2021-07-08] MEDS: Atorvastatin Calcium 40 MG TAB PO SCH (20:55)
[2021-07-08] MEDS: Loratadine 10 MG TAB PO SCH (20:56)
[2021-07-08] MEDS: traZODone HCl 50 MG TAB PO SCH (20:56)
[2021-07-08] MEDS: Famotidine 20 MG TAB PO SCH (20:57)
[2021-07-08] MEDS: traMADol HCl 50 MG TAB PO PRN (22:44)
[2021-07-09 05:57] LABS: #Basophils 0.1 thou/uL (0.0-0.2); #Eosinphils 0.3 thou/uL (0.0-0.7); #Lymphocytes 2.7 thou/uL (1.20-3.40); #Monocytes 0.5 thou/uL (0.11-0.59); #Neutrophils 4.5 thou/uL (1.40-6.50); %Basophils 0.9 % (0.0-1.0); %Eosinophils 3.2 % (0.0-10.0); %Lymphocytes 33.9 % (21.0-51.0); %Monocytes 5.8 % (0.0-10.0); %Neutrophils 56.2 % (42.0-75.0); Hemoglobin 10.6 g/dL (14.0-18.0); Mean Corpuscular HGB CONC 31.2 g/dL (32.0-36.0); Mean Corpuscular Hemoglobin 25.6 pg (27.0-31.0); Mean Corpuscular Volume 82.2 fL (78.0-98.0); Mean Platelet Volume 7.4 fL (7.4-10.4); Platelet Count 231 thou/uL (130-400); RBC Distribution Width 14.7 % (11.5-14.5); Red Blood Cell (RBC) Count 4.14 mill/uL (4.70-6.10); White Blood Cell (WBC) Count 7.9 thou/uL (4.8-10.8)
[2021-07-09 06:53] LABS: Anion Gap 14 mmol/L (10-20); BUN (Urea Nitrogen) 50 mg/dL (8.4-25.7); Calc. Creatinine Clearance 99 mL/min (70-130); Calcium 8.8 mg/dL (7.8-10.44); Carbon Dioxide 26 mmol/L (22-29); Chloride 104 mmol/L (98-107); Glucose 141 mg/dL (70-105); Potassium 3.7 mmol/L (3.5-5.1); Sodium 140 mmol/L (136-145)
[2021-07-09] MEDS: Polyethylene Glycol 3350 17 GM Packet PO PRN (09:13)
[2021-07-09] MEDS: Lantus 1000 UNITS/10 ML VIAL SC SCH ×2 (09:13→20:59)
[2021-07-09] MEDS: Aspirin 81 mg Enteric Coated Tablet PO SCH (09:13)
[2021-07-09] MEDS: Furosemide 40 MG TAB PO SCH (09:14)
[2021-07-09] MEDS: Gabapentin 300 MG CAP PO SCH ×3 (09:14→20:57)
[2021-07-09] MEDS: Calcitriol 0.25 MCG CAP PO SCH (09:14)
[2021-07-09] MEDS: Amlodipine 5 MG TAB PO SCH (09:15)
[2021-07-09] MEDS: Nitrofurantoin Monohyd/M-Cryst 100 MG CAP PO SCH ×2 (09:15→20:59)
[2021-07-09] MEDS: Saccharomyces boulardii 250 MG CAP PO SCH (09:15)
[2021-07-09] MEDS: hydrALAZINE 10 MG TAB PO SCH ×3 (09:16→20:57)
[2021-07-09] MEDS: HYDROcodone/Acetaminophen 5/325 mg Tablet PO PRN (09:20)
[2021-07-09] MEDS: HumaLOG 300 UNITS/3 ML VIAL SC PRN ×2 (12:18→17:22)
[2021-07-09] MEDS: traMADol HCl 50 MG TAB PO PRN (20:56)
[2021-07-09] MEDS: Atorvastatin Calcium 40 MG TAB PO SCH (20:57)
[2021-07-09] MEDS: Loratadine 10 MG TAB PO SCH (20:58)
[2021-07-09] MEDS: traZODone HCl 50 MG TAB PO SCH (20:58)
[2021-07-09] MEDS: Famotidine 20 MG TAB PO SCH (20:58)
[2021-07-10] MEDS: traMADol HCl 50 MG TAB PO PRN ×2 (09:05→20:38)
[2021-07-10] MEDS: Polyethylene Glycol 3350 17 GM Packet PO PRN (09:09)
[2021-07-10] MEDS: Saccharomyces boulardii 250 MG CAP PO SCH (09:10)
[2021-07-10] MEDS: Amlodipine 5 MG TAB PO SCH (09:10)
[2021-07-10] MEDS: Aspirin 81 mg Enteric Coated Tablet PO SCH (09:11)
[2021-07-10] MEDS: Nitrofurantoin Monohyd/M-Cryst 100 MG CAP PO SCH ×2 (09:11→20:40)
[2021-07-10] MEDS: Gabapentin 300 MG CAP PO SCH ×3 (09:11→20:39)
[2021-07-10] MEDS: Furosemide 40 MG TAB PO SCH (09:12)
[2021-07-10] MEDS: hydrALAZINE 10 MG TAB PO SCH ×3 (09:12→20:41)
[2021-07-10] MEDS: Calcitriol 0.25 MCG CAP PO SCH (09:12)
[2021-07-10] MEDS: Lantus 1000 UNITS/10 ML VIAL SC SCH ×2 (09:13→20:41)
[2021-07-10] MEDS: HumaLOG 300 UNITS/3 ML VIAL SC PRN ×3 (12:27→20:42)
[2021-07-10] MEDS: traZODone HCl 50 MG TAB PO SCH (20:40)
[2021-07-10] MEDS: Atorvastatin Calcium 40 MG TAB PO SCH (20:40)
[2021-07-10] MEDS: Loratadine 10 MG TAB PO SCH (20:41)
[2021-07-10] MEDS: Famotidine 20 MG TAB PO SCH (20:41)
[2021-07-11] MEDS: Polyethylene Glycol 3350 17 GM Packet PO PRN (08:58)
[2021-07-11] MEDS: Saccharomyces boulardii 250 MG CAP PO SCH (08:58)
[2021-07-11] MEDS: Gabapentin 300 MG CAP PO SCH ×3 (08:58→20:18)
[2021-07-11] MEDS: Furosemide 40 MG TAB PO SCH (08:58)
[2021-07-11] MEDS: Nitrofurantoin Monohyd/M-Cryst 100 MG CAP PO SCH ×2 (09:00→20:20)
[2021-07-11] MEDS: Aspirin 81 mg Enteric Coated Tablet PO SCH (09:00)
[2021-07-11] MEDS: Amlodipine 5 MG TAB PO SCH (09:00)
[2021-07-11] MEDS: Calcitriol 0.25 MCG CAP PO SCH (09:00)
[2021-07-11] MEDS: hydrALAZINE 10 MG TAB PO SCH ×3 (09:00→20:19)
[2021-07-11] MEDS: Lantus 1000 UNITS/10 ML VIAL SC SCH ×2 (09:01→20:15)
[2021-07-11] MEDS: HumaLOG 300 UNITS/3 ML VIAL SC PRN ×2 (12:17→17:45)
[2021-07-11] MEDS: traMADol HCl 50 MG TAB PO PRN ×2 (13:28→20:21)
[2021-07-11] MEDS: Atorvastatin Calcium 40 MG TAB PO SCH (20:19)
[2021-07-11] MEDS: Loratadine 10 MG TAB PO SCH ×2 (20:19→20:20)
[2021-07-11] MEDS: traZODone HCl 50 MG TAB PO SCH (20:20)
[2021-07-11] MEDS: Famotidine 20 MG TAB PO SCH (20:21)
[2021-07-12] MEDS: Aspirin 81 mg Enteric Coated Tablet PO SCH (08:23)
[2021-07-12] MEDS: Saccharomyces boulardii 250 MG CAP PO SCH (08:23)
[2021-07-12] MEDS: Nitrofurantoin Monohyd/M-Cryst 100 MG CAP PO SCH ×2 (08:23→21:06)
[2021-07-12] MEDS: Gabapentin 300 MG CAP PO SCH ×3 (08:24→21:04)
[2021-07-12] MEDS: Amlodipine 5 MG TAB PO SCH (08:24)
[2021-07-12] MEDS: Calcitriol 0.25 MCG CAP PO SCH (08:24)
[2021-07-12] MEDS: hydrALAZINE 10 MG TAB PO SCH ×3 (08:25→21:06)
[2021-07-12] MEDS: Furosemide 40 MG TAB PO SCH (08:25)
[2021-07-12] MEDS: Lantus 1000 UNITS/10 ML VIAL SC SCH ×2 (08:27→21:06)
[2021-07-12] MEDS: HumaLOG 300 UNITS/3 ML VIAL SC PRN ×2 (12:07→16:54)
[2021-07-12] MEDS: HYDROcodone/Acetaminophen 5/325 mg Tablet PO PRN (16:59)
[2021-07-12] MEDS: traMADol HCl 50 MG TAB PO PRN (21:04)
[2021-07-12] MEDS: Atorvastatin Calcium 40 MG TAB PO SCH (21:05)
[2021-07-12] MEDS: Famotidine 20 MG TAB PO SCH (21:05)
[2021-07-12] MEDS: traZODone HCl 50 MG TAB PO SCH (21:06)
[2021-07-12] MEDS: Loratadine 10 MG TAB PO SCH (21:06)
[2021-07-13] MEDS: Lantus 1000 UNITS/10 ML VIAL SC SCH ×2 (08:11→20:49)
[2021-07-13] MEDS: Calcitriol 0.25 MCG CAP PO SCH (08:12)
[2021-07-13] MEDS: Gabapentin 300 MG CAP PO SCH ×2 (08:12→20:51)
[2021-07-13] MEDS: Amlodipine 5 MG TAB PO SCH (08:12)
[2021-07-13] MEDS: hydrALAZINE 10 MG TAB PO SCH ×3 (08:13→20:47)
[2021-07-13] MEDS: Saccharomyces boulardii 250 MG CAP PO SCH (08:13)
[2021-07-13] MEDS: Nitrofurantoin Monohyd/M-Cryst 100 MG CAP PO SCH ×2 (08:13→20:47)
[2021-07-13] MEDS: Furosemide 40 MG TAB PO SCH (08:13)
[2021-07-13] MEDS: Aspirin 81 mg Enteric Coated Tablet PO SCH (08:13)
[2021-07-13] MEDS: traMADol HCl 50 MG TAB PO PRN ×2 (11:44→20:50)
[2021-07-13] MEDS: HumaLOG 300 UNITS/3 ML VIAL SC PRN ×2 (11:48→17:00)
[2021-07-13] MEDS: Loratadine 10 MG TAB PO SCH (20:46)
[2021-07-13] MEDS: Famotidine 20 MG TAB PO SCH (20:48)
[2021-07-13] MEDS: traZODone HCl 50 MG TAB PO SCH (20:48)
[2021-07-13] MEDS: Atorvastatin Calcium 40 MG TAB PO SCH (20:48)
[2021-07-14] MEDS: traMADol HCl 50 MG TAB PO PRN ×2 (09:51→20:29)
[2021-07-14] MEDS: Lantus 1000 UNITS/10 ML VIAL SC SCH ×2 (09:52→20:31)
[2021-07-14] MEDS: Polyethylene Glycol 3350 17 GM Packet PO PRN (09:52)
[2021-07-14] MEDS: Saccharomyces boulardii 250 MG CAP PO SCH (09:53)
[2021-07-14] MEDS: Gabapentin 300 MG CAP PO SCH ×2 (09:53→20:27)
[2021-07-14] MEDS: Furosemide 40 MG TAB PO SCH (09:53)
[2021-07-14] MEDS: Nitrofurantoin Monohyd/M-Cryst 100 MG CAP PO SCH ×2 (09:53→20:26)
[2021-07-14] MEDS: Amlodipine 5 MG TAB PO SCH (09:54)
[2021-07-14] MEDS: hydrALAZINE 10 MG TAB PO SCH ×3 (09:54→20:26)
[2021-07-14] MEDS: Aspirin 81 mg Enteric Coated Tablet PO SCH (09:54)
[2021-07-14] MEDS: Calcitriol 0.25 MCG CAP PO SCH (09:55)
[2021-07-14 11:01] VITALS: BMI 52.0
[2021-07-14] MEDS: DULAGLUTIDE 1.5 MG/0.5 ML SC SCH (15:51)
[2021-07-14] MEDS: HYDROcodone/Acetaminophen 5/325 mg Tablet PO PRN (15:59)
[2021-07-14] MEDS: Loratadine 10 MG TAB PO SCH (20:25)
[2021-07-14] MEDS: traZODone HCl 50 MG TAB PO SCH (20:25)
[2021-07-14] MEDS: Atorvastatin Calcium 40 MG TAB PO SCH (20:26)
[2021-07-14] MEDS: Famotidine 20 MG TAB PO SCH (20:28)
[2021-07-14 23:52] LABS: SARS-CoV-2 PCR by NAA Not Detected (NotDetected)
[2021-07-15] MEDS: Gabapentin 300 MG CAP PO SCH ×2 (08:44→21:08)
[2021-07-15] MEDS: Aspirin 81 mg Enteric Coated Tablet PO SCH (08:44)
[2021-07-15] MEDS: Amlodipine 5 MG TAB PO SCH (08:45)
[2021-07-15] MEDS: Calcitriol 0.25 MCG CAP PO SCH (08:45)
[2021-07-15] MEDS: Furosemide 40 MG TAB PO SCH (08:45)
[2021-07-15] MEDS: Saccharomyces boulardii 250 MG CAP PO SCH (08:46)
[2021-07-15] MEDS: hydrALAZINE 10 MG TAB PO SCH ×3 (08:46→21:11)
[2021-07-15] MEDS: Lantus 1000 UNITS/10 ML VIAL SC SCH ×2 (08:46→21:07)
[2021-07-15] MEDS: HumaLOG 300 UNITS/3 ML VIAL SC PRN (17:10)
[2021-07-15] MEDS: Atorvastatin Calcium 40 MG TAB PO SCH (21:10)
[2021-07-15] MEDS: traZODone HCl 50 MG TAB PO SCH (21:10)
[2021-07-15] MEDS: Loratadine 10 MG TAB PO SCH (21:11)
[2021-07-15] MEDS: Famotidine 20 MG TAB PO SCH (21:11)
[2021-07-15] MEDS: HYDROcodone/Acetaminophen 5/325 mg Tablet PO PRN (21:11)
[2021-07-16 05:19] LABS: #Basophils 0.1 thou/uL (0.0-0.2); #Eosinphils 0.2 thou/uL (0.0-0.7); #Lymphocytes 2.9 thou/uL (1.20-3.40); #Monocytes 0.4 thou/uL (0.11-0.59); %Basophils 0.8 % (0.0-1.0); %Eosinophils 2.9 % (0.0-10.0); %Lymphocytes 33.2 % (21.0-51.0); %Monocytes 5.1 % (0.0-10.0); Hemoglobin 10.6 g/dL (14.0-18.0); Mean Corpuscular HGB CONC 32.5 g/dL (32.0-36.0); Mean Corpuscular Hemoglobin 26.3 pg (27.0-31.0); Mean Corpuscular Volume 80.7 fL (78.0-98.0); Mean Platelet Volume 7.6 fL (7.4-10.4); Platelet Count 239 thou/uL (130-400); RBC Distribution Width 14.7 % (11.5-14.5); Red Blood Cell (RBC) Count 4.02 mill/uL (4.70-6.10); White Blood Cell (WBC) Count 8.7 thou/uL (4.8-10.8)
[2021-07-16 05:30] LABS: Anion Gap 13 mmol/L (10-20); BUN (Urea Nitrogen) 50 mg/dL (8.4-25.7); Calc. Creatinine Clearance 118 mL/min (70-130); Calcium 8.6 mg/dL (7.8-10.44); Carbon Dioxide 28 mmol/L (22-29); Chloride 102 mmol/L (98-107); Glucose 133 mg/dL (70-105); Potassium 3.5 mmol/L (3.5-5.1); Sodium 139 mmol/L (136-145)
[2021-07-16] MEDS: Lantus 1000 UNITS/10 ML VIAL SC SCH ×2 (10:22→21:26)
[2021-07-16] MEDS: Aspirin 81 mg Enteric Coated Tablet PO SCH (10:27)
[2021-07-16] MEDS: Calcitriol 0.25 MCG CAP PO SCH (10:27)
[2021-07-16] MEDS: Saccharomyces boulardii 250 MG CAP PO SCH (10:27)
[2021-07-16] MEDS: Amlodipine 5 MG TAB PO SCH (10:27)
[2021-07-16] MEDS: Furosemide 40 MG TAB PO SCH (10:27)
[2021-07-16] MEDS: Gabapentin 300 MG CAP PO SCH ×2 (10:28→21:27)
[2021-07-16] MEDS: hydrALAZINE 10 MG TAB PO SCH ×3 (10:28→21:26)
[2021-07-16] MEDS: HYDROcodone/Acetaminophen 5/325 mg Tablet PO PRN ×2 (14:38→21:30)
[2021-07-16] MEDS: HumaLOG 300 UNITS/3 ML VIAL SC PRN (19:11)
[2021-07-16] MEDS: traZODone HCl 50 MG TAB PO SCH (21:30)
[2021-07-16] MEDS: Atorvastatin Calcium 40 MG TAB PO SCH (21:30)
[2021-07-16] MEDS: Loratadine 10 MG TAB PO SCH (21:30)
[2021-07-16] MEDS: Famotidine 20 MG TAB PO SCH (21:30)
[2021-07-17] MEDS: Amlodipine 5 MG TAB PO SCH (08:11)
[2021-07-17] MEDS: Aspirin 81 mg Enteric Coated Tablet PO SCH (08:11)
[2021-07-17] MEDS: Calcitriol 0.25 MCG CAP PO SCH (08:14)
[2021-07-17] MEDS: Furosemide 40 MG TAB PO SCH (08:14)
[2021-07-17] MEDS: hydrALAZINE 10 MG TAB PO SCH ×3 (08:14→21:43)
[2021-07-17] MEDS: Saccharomyces boulardii 250 MG CAP PO SCH (08:14)
[2021-07-17] MEDS: Gabapentin 300 MG CAP PO SCH ×2 (08:16→21:45)
[2021-07-17] MEDS: Lantus 1000 UNITS/10 ML VIAL SC SCH ×2 (08:19→21:42)
[2021-07-17] MEDS: HumaLOG 300 UNITS/3 ML VIAL SC PRN (17:18)
[2021-07-17] MEDS: Atorvastatin Calcium 40 MG TAB PO SCH (21:44)
[2021-07-17] MEDS: traZODone HCl 50 MG TAB PO SCH (21:44)
[2021-07-17] MEDS: Loratadine 10 MG TAB PO SCH (21:44)
[2021-07-17] MEDS: Famotidine 20 MG TAB PO SCH (21:44)
[2021-07-17] MEDS: HYDROcodone/Acetaminophen 5/325 mg Tablet PO PRN (21:45)
[2021-07-18] MEDS: traMADol HCl 50 MG TAB PO PRN ×2 (01:48→15:28)
[2021-07-18] MEDS: hydrALAZINE 10 MG TAB PO SCH ×3 (08:58→20:39)
[2021-07-18] MEDS: Calcitriol 0.25 MCG CAP PO SCH (08:58)
[2021-07-18] MEDS: Amlodipine 5 MG TAB PO SCH (08:58)
[2021-07-18] MEDS: Aspirin 81 mg Enteric Coated Tablet PO SCH (08:58)
[2021-07-18] MEDS: Saccharomyces boulardii 250 MG CAP PO SCH (08:59)
[2021-07-18] MEDS: Gabapentin 300 MG CAP PO SCH ×2 (08:59→20:40)
[2021-07-18] MEDS: Furosemide 40 MG TAB PO SCH (08:59)
[2021-07-18] MEDS: Lantus 1000 UNITS/10 ML VIAL SC SCH ×2 (09:01→20:44)
[2021-07-18] MEDS: HumaLOG 300 UNITS/3 ML VIAL SC PRN (17:44)
[2021-07-18] MEDS: traZODone HCl 50 MG TAB PO SCH (20:39)
[2021-07-18] MEDS: Famotidine 20 MG TAB PO SCH (20:40)
[2021-07-18] MEDS: Atorvastatin Calcium 40 MG TAB PO SCH (20:40)
[2021-07-18] MEDS: Loratadine 10 MG TAB PO SCH (20:41)
[2021-07-18] MEDS: HYDROcodone/Acetaminophen 5/325 mg Tablet PO PRN (20:49)
[2021-07-19] MEDS: hydrALAZINE 10 MG TAB PO SCH ×3 (08:41→22:28)
[2021-07-19] MEDS: Gabapentin 300 MG CAP PO SCH ×2 (08:41→22:25)
[2021-07-19] MEDS: Aspirin 81 mg Enteric Coated Tablet PO SCH (08:41)
[2021-07-19] MEDS: Saccharomyces boulardii 250 MG CAP PO SCH (08:42)
[2021-07-19] MEDS: Amlodipine 5 MG TAB PO SCH (08:42)
[2021-07-19] MEDS: Calcitriol 0.25 MCG CAP PO SCH (08:42)
[2021-07-19] MEDS: Lantus 1000 UNITS/10 ML VIAL SC SCH ×2 (08:43→22:24)
[2021-07-19] MEDS: Furosemide 40 MG TAB PO SCH (08:43)
[2021-07-19] MEDS: HumaLOG 300 UNITS/3 ML VIAL SC PRN ×2 (12:01→17:23)
[2021-07-19] MEDS: traMADol HCl 50 MG TAB PO PRN (13:27)
[2021-07-19] MEDS: Atorvastatin Calcium 40 MG TAB PO SCH (22:27)
[2021-07-19] MEDS: HYDROcodone/Acetaminophen 5/325 mg Tablet PO PRN (22:28)
[2021-07-19] MEDS: Famotidine 20 MG TAB PO SCH (22:28)
[2021-07-19] MEDS: traZODone HCl 50 MG TAB PO SCH (22:28)
[2021-07-19] MEDS: Loratadine 10 MG TAB PO SCH (22:30)
[2021-07-20 05:25] VITALS: TEMP 98
[2021-07-20] MEDS: Lantus 1000 UNITS/10 ML VIAL SC SCH (09:00)
[2021-07-20] MEDS: hydrALAZINE 10 MG TAB PO SCH (09:01)
[2021-07-20] MEDS: Amlodipine 5 MG TAB PO SCH (09:01)
[2021-07-20] MEDS: Aspirin 81 mg Enteric Coated Tablet PO SCH (09:01)
[2021-07-20] MEDS: Saccharomyces boulardii 250 MG CAP PO SCH (09:02)
[2021-07-20] MEDS: Calcitriol 0.25 MCG CAP PO SCH (09:02)
[2021-07-20] MEDS: Gabapentin 300 MG CAP PO SCH (09:02)
[2021-07-20] MEDS: Furosemide 40 MG TAB PO SCH (09:02)
[2021-07-20 09:03] VITALS: BP 142/74
== END 2021-07-20 13:12 | disposition home or self-care (01) | DRG 948 ==
LOC: BURMED 16:24
PROVIDERS: ADMIT Family Medicine; ATTEND Family Medicine
DX: R53.81 Other malaise (principal); N39.0 Urinary tract infection, site not specified; Z68.43 Body mass index [BMI] 50.0-59.9, adult; M86.9 Osteomyelitis, unspecified; E66.01 Morbid (severe) obesity due to excess calories; E11.22 Type 2 diabetes mellitus with diabetic chronic kidney disease; I12.9 Hypertensive chronic kidney disease with stage 1 through stage 4 chronic kidney disease, or unspecified chronic kidney disease; E78.5 Hyperlipidemia, unspecified; N18.30 Chronic kidney disease, stage 3 unspecified; Z20.822 Contact with and (suspected) exposure to COVID-19; E11.621 Type 2 diabetes mellitus with foot ulcer; E11.69 Type 2 diabetes mellitus with other specified complication; L97.529 Non-pressure chronic ulcer of other part of left foot with unspecified severity; Z89.511 Acquired absence of right leg below knee
CPT/HCPCS: 36415; 36416; 80048; 81001; 85025; 86140; 87077; 87086; 87186; 97602; J1815; U0003; U0005

== ENCOUNTER 2021-10-11 13:32 | Emergency (ER) | payer MEDICARE, OTHER ==
[2021-10-11] MEDS ORDERED: Cefepime 2 GM VIAL ONE (14:39)
[2021-10-11 15:10] LABS: #Basophils 0.1 thou/uL (0.0-0.2); #Eosinphils 0.2 thou/uL (0.0-0.7); #Lymphocytes 2.1 thou/uL (1.20-3.40); #Monocytes 0.6 thou/uL (0.11-0.59); #Neutrophils 5.9 thou/uL (1.40-6.50); %Basophils 0.8 % (0.0-1.0); %Eosinophils 2.1 % (0.0-10.0); %Lymphocytes 23.8 % (21.0-51.0); %Monocytes 6.6 % (0.0-10.0); %Neutrophils 66.6 % (42.0-75.0); Hemoglobin 9.8 g/dL (14.0-18.0); Mean Corpuscular HGB CONC 32.2 g/dL (32.0-36.0); Mean Corpuscular Hemoglobin 25.6 pg (27.0-31.0); Mean Corpuscular Volume 79.5 fL (78.0-98.0); Mean Platelet Volume 6.7 fL (7.4-10.4); Platelet Count 278 thou/uL (130-400); RBC Distribution Width 16.3 % (11.5-14.5); Red Blood Cell (RBC) Count 3.84 mill/uL (4.70-6.10); White Blood Cell (WBC) Count 8.8 thou/uL (4.8-10.8)
[2021-10-11 15:23] LABS: ALT (SGPT) 18 U/L (8-55); AST (SGOT) 14 U/L (5-34); Albumin 3.3 g/dL (3.5-5.0); Alkaline Phosphatase 60 U/L (40-110); Anion Gap 15 mmol/L (10-20); BUN (Urea Nitrogen) 47 mg/dL (8.4-25.7); Bilirubin, Total 0.4 mg/dL (0.2-1.2); Calc. Creatinine Clearance 0 mL/min (70-130); Calcium 9.3 mg/dL (7.8-10.44); Carbon Dioxide 24 mmol/L (22-29); Chloride 104 mmol/L (98-107); Globulin 3.8 g/dL (2.4-3.5); Glucose 241 mg/dL (70-105); Potassium 3.8 mmol/L (3.5-5.1); Protein, Total 7.1 g/dL (6.0-8.3); Sodium 139 mmol/L (136-145)
== END 2021-10-11 16:30 | disposition short-term general hospital (02) ==
LOC: BURERS 13:32
DX: E11.621 Type 2 diabetes mellitus with foot ulcer (principal); L97.529 Non-pressure chronic ulcer of other part of left foot with unspecified severity; L03.116 Cellulitis of left lower limb; I11.0 Hypertensive heart disease with heart failure; I50.9 Heart failure, unspecified; G47.33 Obstructive sleep apnea (adult) (pediatric); E11.9 Type 2 diabetes mellitus without complications
CPT/HCPCS: 36415; 80053; 83605; 85025; 85652; 87040; 96374; 96375; J0692; J3370; U0003; U0005

== ENCOUNTER 2021-10-20 16:52 | Inpatient (IN) | payer MEDICARE ==
[2021-10-20] MEDS ORDERED: Acetaminophen 650 MG Suppository PR PRN (18:44)
[2021-10-20] MEDS ORDERED: Ondansetron ODT 4 MG TAB PO PRN (18:45)
[2021-10-20] MEDS ORDERED: Calcium Carbonate 500 MG ChewTAB PO PRN (18:46)
[2021-10-20] MEDS ORDERED: Ondansetron PF 4 MG/2 ML Vial IVP PRN ×2 (18:46→19:43)
[2021-10-20] MEDS ORDERED: Senokot S 8.6-50 MG TAB PO PRN ×2 (18:47→19:43)
[2021-10-20] MEDS ORDERED: Bisacodyl 10 MG SUPP PR PRN (18:48)
[2021-10-20] MEDS ORDERED: Loperamide HCl 2 MG CAP PO PRN ×2 (18:49)
[2021-10-20] MEDS ORDERED: Zolpidem Tartrate 5 MG TAB PO PRN (18:50)
[2021-10-20] MEDS ORDERED: Guaifenesin DM 100-10/5 ML UDCUP PO PRN (18:50)
[2021-10-20] MEDS ORDERED: HYDROcodone/Acetaminophen 5/325 mg Tablet PO PRN (19:43)
[2021-10-20] MEDS ORDERED: traMADol HCl 50 MG TAB PO PRN (19:43)
[2021-10-20] MEDS ORDERED: Morphine 2 MG/ML VIAL SLOW IVP PRN (19:43)
[2021-10-20] MEDS ORDERED: Non-Formulary Item 1 EACH (Acetaminophen [Tylenol] 325 MG Capsule) PO PRN (19:43)
[2021-10-20] MEDS ORDERED: HumaLOG 300 UNITS/3 ML VIAL SC SCH (19:45)
[2021-10-20] MEDS: Acetaminophen 325 MG TAB PO PRN (20:17)
[2021-10-20] MEDS: traZODone HCl 50 MG TAB PO SCH (21:20)
[2021-10-20] MEDS: hydrALAZINE 10 MG TAB PO SCH (21:22)
[2021-10-20] MEDS: Atorvastatin Calcium 40 MG TAB PO SCH (21:25)
[2021-10-20] MEDS: Gabapentin 300 MG CAP PO SCH (21:25)
[2021-10-20] MEDS: Famotidine 20 MG TAB PO SCH (21:25)
[2021-10-20] MEDS: Lantus 1000 UNITS/10 ML VIAL SC SCH (21:26)
[2021-10-21] MEDS ORDERED: Cefepime 2 GM VIAL IVPB SCH (03:00)
[2021-10-21] MEDS: Cefepime 2 GM in Sodium Chloride 0.9% 100 ML IVPB SCH ×2 (03:10→15:33)
[2021-10-21] MEDS: Amlodipine 5 MG TAB PO SCH (08:25)
[2021-10-21] MEDS: Enoxaparin Sodium 40 MG/0.4 ML SYRINGE SC SCH (08:25)
[2021-10-21] MEDS: Gabapentin 300 MG CAP PO SCH ×3 (08:26→20:30)
[2021-10-21] MEDS: Calcitriol 0.25 MCG CAP PO SCH (08:26)
[2021-10-21] MEDS: Lantus 1000 UNITS/10 ML VIAL SC SCH ×2 (08:27→20:33)
[2021-10-21] MEDS: Aspirin 81 mg Enteric Coated Tablet PO SCH (08:27)
[2021-10-21] MEDS: hydrALAZINE 10 MG TAB PO SCH ×3 (08:27→20:31)
[2021-10-21] MEDS: Furosemide 40 MG TAB PO SCH (08:27)
[2021-10-21] MEDS: HumaLOG 300 UNITS/3 ML VIAL SC PRN ×4 (08:39→20:33)
[2021-10-21] MEDS: Polyethylene Glycol 3350 17 GM Packet PO SCH (08:41)
[2021-10-21] MEDS: HYDROcodone/Acetaminophen 5/325 mg Tablet PO PRN ×2 (11:21→20:27)
[2021-10-21] MEDS: diphenhydrAMINE 25 MG CAP PO PRN ×2 (13:28→19:42)
[2021-10-21] MEDS: Atorvastatin Calcium 40 MG TAB PO SCH (20:29)
[2021-10-21] MEDS: traZODone HCl 50 MG TAB PO SCH (20:30)
[2021-10-21] MEDS: Famotidine 20 MG TAB PO SCH (20:31)
[2021-10-22] MEDS: Cefepime 2 GM in Sodium Chloride 0.9% 100 ML IVPB SCH ×2 (02:49→15:06)
[2021-10-22] MEDS: Enoxaparin Sodium 40 MG/0.4 ML SYRINGE SC SCH (08:29)
[2021-10-22] MEDS: diphenhydrAMINE 25 MG CAP PO PRN ×2 (08:29→19:37)
[2021-10-22] MEDS: Aspirin 81 mg Enteric Coated Tablet PO SCH (08:30)
[2021-10-22] MEDS: Calcitriol 0.25 MCG CAP PO SCH (08:30)
[2021-10-22] MEDS: Furosemide 40 MG TAB PO SCH (08:30)
[2021-10-22] MEDS: hydrALAZINE 10 MG TAB PO SCH ×3 (08:30→20:41)
[2021-10-22] MEDS: Amlodipine 5 MG TAB PO SCH (08:31)
[2021-10-22] MEDS: Gabapentin 300 MG CAP PO SCH ×3 (08:32→20:41)
[2021-10-22] MEDS: Lantus 1000 UNITS/10 ML VIAL SC SCH ×2 (08:33→20:42)
[2021-10-22] MEDS: Polyethylene Glycol 3350 17 GM Packet PO SCH (08:33)
[2021-10-22] MEDS: HYDROcodone/Acetaminophen 5/325 mg Tablet PO PRN ×2 (10:05→18:03)
[2021-10-22 12:51] VITALS: BMI 49.0
[2021-10-22] MEDS: HumaLOG 300 UNITS/3 ML VIAL SC PRN (18:00)
[2021-10-22] MEDS: traZODone HCl 50 MG TAB PO SCH (20:41)
[2021-10-22] MEDS: Atorvastatin Calcium 40 MG TAB PO SCH (20:41)
[2021-10-22] MEDS: Famotidine 20 MG TAB PO SCH (20:42)
[2021-10-23] MEDS: Cefepime 2 GM in Sodium Chloride 0.9% 100 ML IVPB SCH ×2 (03:07→15:28)
[2021-10-23] MEDS: Gabapentin 300 MG CAP PO SCH ×3 (08:43→21:44)
[2021-10-23] MEDS: diphenhydrAMINE 25 MG CAP PO PRN ×2 (08:44→21:44)
[2021-10-23] MEDS: Furosemide 40 MG TAB PO SCH (08:44)
[2021-10-23] MEDS: Calcitriol 0.25 MCG CAP PO SCH (08:45)
[2021-10-23] MEDS: hydrALAZINE 10 MG TAB PO SCH ×3 (08:46→21:48)
[2021-10-23] MEDS: Aspirin 81 mg Enteric Coated Tablet PO SCH (08:53)
[2021-10-23] MEDS: Enoxaparin Sodium 40 MG/0.4 ML SYRINGE SC SCH (08:53)
[2021-10-23] MEDS: Amlodipine 5 MG TAB PO SCH (08:54)
[2021-10-23] MEDS: Lantus 1000 UNITS/10 ML VIAL SC SCH ×2 (08:54→21:48)
[2021-10-23] MEDS: Polyethylene Glycol 3350 17 GM Packet PO SCH (09:00)
[2021-10-23] MEDS: HumaLOG 300 UNITS/3 ML VIAL SC PRN ×2 (12:32→17:47)
[2021-10-23] MEDS: Atorvastatin Calcium 40 MG TAB PO SCH (21:45)
[2021-10-23] MEDS: HYDROcodone/Acetaminophen 5/325 mg Tablet PO PRN (21:46)
[2021-10-23] MEDS: traZODone HCl 50 MG TAB PO SCH (21:47)
[2021-10-23] MEDS: Famotidine 20 MG TAB PO SCH (21:48)
[2021-10-24] MEDS: Cefepime 2 GM in Sodium Chloride 0.9% 100 ML IVPB SCH ×2 (03:28→15:41)
[2021-10-24 05:01] LABS: Hemoglobin 10.2 g/dL (14.0-18.0); Platelet Count 236 thou/uL (130-400)
[2021-10-24] MEDS: Enoxaparin Sodium 40 MG/0.4 ML SYRINGE SC SCH (09:31)
[2021-10-24] MEDS: Lantus 1000 UNITS/10 ML VIAL SC SCH ×2 (09:32→20:52)
[2021-10-24] MEDS: Gabapentin 300 MG CAP PO SCH ×3 (09:34→20:50)
[2021-10-24] MEDS: Calcitriol 0.25 MCG CAP PO SCH (09:35)
[2021-10-24] MEDS: hydrALAZINE 10 MG TAB PO SCH ×3 (09:35→20:41)
[2021-10-24] MEDS: Aspirin 81 mg Enteric Coated Tablet PO SCH (09:35)
[2021-10-24] MEDS: Furosemide 40 MG TAB PO SCH (09:35)
[2021-10-24] MEDS: Amlodipine 5 MG TAB PO SCH (09:35)
[2021-10-24] MEDS: Polyethylene Glycol 3350 17 GM Packet PO SCH (09:36)
[2021-10-24] MEDS: HumaLOG 300 UNITS/3 ML VIAL SC PRN ×2 (18:30→20:53)
[2021-10-24] MEDS: diphenhydrAMINE 25 MG CAP PO PRN (20:38)
[2021-10-24] MEDS: HYDROcodone/Acetaminophen 5/325 mg Tablet PO PRN (20:39)
[2021-10-24] MEDS: traZODone HCl 50 MG TAB PO SCH (20:41)
[2021-10-24] MEDS: Atorvastatin Calcium 40 MG TAB PO SCH (20:49)
[2021-10-24] MEDS: Famotidine 20 MG TAB PO SCH (20:50)
[2021-10-25] MEDS: Cefepime 2 GM in Sodium Chloride 0.9% 100 ML IVPB SCH ×2 (02:26→15:00)
[2021-10-25] MEDS: diphenhydrAMINE 25 MG CAP PO PRN ×2 (09:24→22:13)
[2021-10-25] MEDS: Aspirin 81 mg Enteric Coated Tablet PO SCH (09:25)
[2021-10-25] MEDS: Gabapentin 300 MG CAP PO SCH ×3 (09:25→22:00)
[2021-10-25] MEDS: Amlodipine 5 MG TAB PO SCH (09:26)
[2021-10-25] MEDS: Calcitriol 0.25 MCG CAP PO SCH (09:27)
[2021-10-25] MEDS: Enoxaparin Sodium 40 MG/0.4 ML SYRINGE SC SCH (09:28)
[2021-10-25] MEDS: hydrALAZINE 10 MG TAB PO SCH ×3 (09:28→22:00)
[2021-10-25] MEDS: Furosemide 40 MG TAB PO SCH (09:28)
[2021-10-25] MEDS: Polyethylene Glycol 3350 17 GM Packet PO SCH (09:29)
[2021-10-25] MEDS: Lantus 1000 UNITS/10 ML VIAL SC SCH ×2 (09:29→22:03)
[2021-10-25] MEDS: HYDROcodone/Acetaminophen 5/325 mg Tablet PO PRN (12:19)
[2021-10-25] MEDS: HumaLOG 300 UNITS/3 ML VIAL SC PRN ×3 (12:20→22:04)
[2021-10-25] MEDS: Famotidine 20 MG TAB PO SCH (22:00)
[2021-10-25] MEDS: traZODone HCl 50 MG TAB PO SCH (22:00)
[2021-10-25] MEDS: Atorvastatin Calcium 40 MG TAB PO SCH (22:00)
[2021-10-26] MEDS: Cefepime 2 GM in Sodium Chloride 0.9% 100 ML IVPB SCH ×2 (02:24→15:19)
[2021-10-26] MEDS: Gabapentin 300 MG CAP PO SCH ×3 (10:28→21:07)
[2021-10-26] MEDS: Enoxaparin Sodium 40 MG/0.4 ML SYRINGE SC SCH (10:28)
[2021-10-26] MEDS: diphenhydrAMINE 25 MG CAP PO PRN (10:28)
[2021-10-26] MEDS: Amlodipine 5 MG TAB PO SCH (10:29)
[2021-10-26] MEDS: Aspirin 81 mg Enteric Coated Tablet PO SCH (10:29)
[2021-10-26] MEDS: hydrALAZINE 10 MG TAB PO SCH ×3 (10:29→21:09)
[2021-10-26] MEDS: Calcitriol 0.25 MCG CAP PO SCH (10:30)
[2021-10-26] MEDS: Polyethylene Glycol 3350 17 GM Packet PO SCH (10:30)
[2021-10-26] MEDS: Lantus 1000 UNITS/10 ML VIAL SC SCH ×2 (10:30→21:13)
[2021-10-26] MEDS: Furosemide 40 MG TAB PO SCH (10:30)
[2021-10-26] MEDS: HumaLOG 300 UNITS/3 ML VIAL SC PRN ×3 (12:22→21:13)
[2021-10-26] MEDS: Atorvastatin Calcium 40 MG TAB PO SCH (21:06)
[2021-10-26] MEDS: HYDROcodone/Acetaminophen 5/325 mg Tablet PO PRN (21:07)
[2021-10-26] MEDS: traZODone HCl 50 MG TAB PO SCH (21:08)
[2021-10-26] MEDS: Famotidine 20 MG TAB PO SCH (21:10)
[2021-10-27] MEDS: Cefepime 2 GM in Sodium Chloride 0.9% 100 ML IVPB SCH ×2 (04:47→15:58)
[2021-10-27] MEDS: Gabapentin 300 MG CAP PO SCH ×3 (08:58→21:33)
[2021-10-27] MEDS: Enoxaparin Sodium 40 MG/0.4 ML SYRINGE SC SCH (08:59)
[2021-10-27] MEDS: Furosemide 40 MG TAB PO SCH (09:00)
[2021-10-27] MEDS: Aspirin 81 mg Enteric Coated Tablet PO SCH (09:00)
[2021-10-27] MEDS: Amlodipine 5 MG TAB PO SCH (09:00)
[2021-10-27] MEDS: hydrALAZINE 10 MG TAB PO SCH ×3 (09:00→21:33)
[2021-10-27] MEDS: Calcitriol 0.25 MCG CAP PO SCH (09:00)
[2021-10-27] MEDS: Lantus 1000 UNITS/10 ML VIAL SC SCH ×2 (09:01→21:38)
[2021-10-27] MEDS: Acetaminophen 325 MG TAB PO PRN (09:02)
[2021-10-27] MEDS: Polyethylene Glycol 3350 17 GM Packet PO SCH (09:02)
[2021-10-27] MEDS: HYDROcodone/Acetaminophen 5/325 mg Tablet PO PRN ×2 (13:15→21:31)
[2021-10-27] MEDS: traZODone HCl 50 MG TAB PO SCH (21:34)
[2021-10-27] MEDS: Atorvastatin Calcium 40 MG TAB PO SCH (21:34)
[2021-10-27] MEDS: Famotidine 20 MG TAB PO SCH (21:34)
[2021-10-28] MEDS: Cefepime 2 GM in Sodium Chloride 0.9% 100 ML IVPB SCH ×2 (03:17→15:10)
[2021-10-28] MEDS: Enoxaparin Sodium 40 MG/0.4 ML SYRINGE SC SCH (08:48)
[2021-10-28] MEDS: Polyethylene Glycol 3350 17 GM Packet PO SCH (08:48)
[2021-10-28] MEDS: Amlodipine 5 MG TAB PO SCH (08:49)
[2021-10-28] MEDS: Gabapentin 300 MG CAP PO SCH ×3 (08:49→20:37)
[2021-10-28] MEDS: Aspirin 81 mg Enteric Coated Tablet PO SCH (08:50)
[2021-10-28] MEDS: Furosemide 40 MG TAB PO SCH (08:50)
[2021-10-28] MEDS: Calcitriol 0.25 MCG CAP PO SCH (08:50)
[2021-10-28] MEDS: hydrALAZINE 10 MG TAB PO SCH ×3 (08:50→20:40)
[2021-10-28] MEDS: Lantus 1000 UNITS/10 ML VIAL SC SCH ×2 (08:50→20:41)
[2021-10-28] MEDS: HumaLOG 300 UNITS/3 ML VIAL SC PRN ×2 (15:12→17:50)
[2021-10-28] MEDS: HYDROcodone/Acetaminophen 5/325 mg Tablet PO PRN ×2 (15:21→23:42)
[2021-10-28] MEDS: traZODone HCl 50 MG TAB PO SCH (20:39)
[2021-10-28] MEDS: Atorvastatin Calcium 40 MG TAB PO SCH (20:39)
[2021-10-28] MEDS: Famotidine 20 MG TAB PO SCH (20:39)
[2021-10-29] MEDS: Cefepime 2 GM in Sodium Chloride 0.9% 100 ML IVPB SCH ×2 (03:04→15:24)
[2021-10-29] MEDS: Polyethylene Glycol 3350 17 GM Packet PO SCH (08:50)
[2021-10-29] MEDS: Enoxaparin Sodium 40 MG/0.4 ML SYRINGE SC SCH (08:50)
[2021-10-29] MEDS: Gabapentin 300 MG CAP PO SCH ×3 (08:51→21:34)
[2021-10-29] MEDS: Furosemide 40 MG TAB PO SCH (08:51)
[2021-10-29] MEDS: Amlodipine 5 MG TAB PO SCH (08:51)
[2021-10-29] MEDS: hydrALAZINE 10 MG TAB PO SCH ×3 (08:52→21:32)
[2021-10-29] MEDS: Calcitriol 0.25 MCG CAP PO SCH (08:52)
[2021-10-29] MEDS: Loratadine 10 MG TAB PO SCH (08:52)
[2021-10-29] MEDS: Aspirin 81 mg Enteric Coated Tablet PO SCH (08:52)
[2021-10-29] MEDS: Lantus 1000 UNITS/10 ML VIAL SC SCH ×2 (08:53→21:51)
[2021-10-29] MEDS: HumaLOG 300 UNITS/3 ML VIAL SC PRN ×2 (13:09→17:58)
[2021-10-29] MEDS: traZODone HCl 50 MG TAB PO SCH (21:33)
[2021-10-29] MEDS: Famotidine 20 MG TAB PO SCH (21:34)
[2021-10-29] MEDS: Atorvastatin Calcium 40 MG TAB PO SCH (21:34)
[2021-10-29] MEDS: HYDROcodone/Acetaminophen 5/325 mg Tablet PO PRN (21:35)
[2021-10-30] MEDS: Cefepime 2 GM in Sodium Chloride 0.9% 100 ML IVPB SCH ×2 (03:35→15:07)
[2021-10-30] MEDS: Amlodipine 5 MG TAB PO SCH (09:44)
[2021-10-30] MEDS: Aspirin 81 mg Enteric Coated Tablet PO SCH (09:45)
[2021-10-30] MEDS: Calcitriol 0.25 MCG CAP PO SCH (09:45)
[2021-10-30] MEDS: hydrALAZINE 10 MG TAB PO SCH ×3 (09:45→21:39)
[2021-10-30] MEDS: Gabapentin 300 MG CAP PO SCH ×3 (09:46→21:39)
[2021-10-30] MEDS: Furosemide 40 MG TAB PO SCH (09:46)
[2021-10-30] MEDS: Loratadine 10 MG TAB PO SCH (09:46)
[2021-10-30] MEDS: Lantus 1000 UNITS/10 ML VIAL SC SCH ×2 (09:47→21:40)
[2021-10-30] MEDS: Polyethylene Glycol 3350 17 GM Packet PO SCH (09:47)
[2021-10-30] MEDS: Enoxaparin Sodium 40 MG/0.4 ML SYRINGE SC SCH (09:47)
[2021-10-30] MEDS: HumaLOG 300 UNITS/3 ML VIAL SC PRN (17:01)
[2021-10-30] MEDS: Atorvastatin Calcium 40 MG TAB PO SCH (21:38)
[2021-10-30] MEDS: Famotidine 20 MG TAB PO SCH (21:39)
[2021-10-30] MEDS: traZODone HCl 50 MG TAB PO SCH (21:39)
[2021-10-30] MEDS: HYDROcodone/Acetaminophen 5/325 mg Tablet PO PRN (23:11)
[2021-10-31] MEDS: Cefepime 2 GM in Sodium Chloride 0.9% 100 ML IVPB SCH ×2 (03:16→15:05)
[2021-10-31] MEDS: Enoxaparin Sodium 40 MG/0.4 ML SYRINGE SC SCH (09:44)
[2021-10-31] MEDS: Gabapentin 300 MG CAP PO SCH ×3 (09:44→20:32)
[2021-10-31] MEDS: Calcitriol 0.25 MCG CAP PO SCH (09:44)
[2021-10-31] MEDS: Lantus 1000 UNITS/10 ML VIAL SC SCH ×2 (09:45→20:39)
[2021-10-31] MEDS: Furosemide 40 MG TAB PO SCH (09:45)
[2021-10-31] MEDS: Loratadine 10 MG TAB PO SCH (09:45)
[2021-10-31] MEDS: Aspirin 81 mg Enteric Coated Tablet PO SCH (09:45)
[2021-10-31] MEDS: hydrALAZINE 10 MG TAB PO SCH ×3 (09:49→20:29)
[2021-10-31] MEDS: Amlodipine 5 MG TAB PO SCH (09:49)
[2021-10-31] MEDS: Polyethylene Glycol 3350 17 GM Packet PO SCH (09:50)
[2021-10-31] MEDS: HumaLOG 300 UNITS/3 ML VIAL SC PRN ×2 (12:08→18:49)
[2021-10-31 19:58] LABS: Bilirubin Negative (Negative); Blood, Urine Trace (Negative); Clarity Clear (Clear); Glucose, Urine (Dipstick) Negative (Negative); Ketone, Urine Negative (Negative); Leukocyte Negative (Negative); Nitrite Negative (Negative); Protein, Urine (Dipstick) 100 mg/dL (Neg-Trace); Specific Gravity, Urine 1.015 (1.005-1.030); Urobilinogen 0.2 mg/dL (Less than 2)
[2021-10-31 20:00] LABS: Mucous/LPF 1+ LPF (<2+); RBC/HPF 0-3 HPF (0-3)
[2021-10-31] MEDS: HYDROcodone/Acetaminophen 5/325 mg Tablet PO PRN (20:30)
[2021-10-31] MEDS: traZODone HCl 50 MG TAB PO SCH (20:31)
[2021-10-31] MEDS: Atorvastatin Calcium 40 MG TAB PO SCH (20:37)
[2021-10-31] MEDS: Famotidine 20 MG TAB PO SCH (20:37)
[2021-11-01] MEDS: Cefepime 2 GM in Sodium Chloride 0.9% 100 ML IVPB SCH ×2 (02:49→14:30)
[2021-11-01] MEDS: Aspirin 81 mg Enteric Coated Tablet PO SCH (08:56)
[2021-11-01] MEDS: Amlodipine 5 MG TAB PO SCH (08:56)
[2021-11-01] MEDS: Furosemide 40 MG TAB PO SCH (08:56)
[2021-11-01] MEDS: Loratadine 10 MG TAB PO SCH (08:58)
[2021-11-01] MEDS: hydrALAZINE 10 MG TAB PO SCH ×3 (08:58→21:29)
[2021-11-01] MEDS: Calcitriol 0.25 MCG CAP PO SCH (08:58)
[2021-11-01] MEDS: Lantus 1000 UNITS/10 ML VIAL SC SCH ×2 (08:59→21:33)
[2021-11-01] MEDS: Enoxaparin Sodium 40 MG/0.4 ML SYRINGE SC SCH (08:59)
[2021-11-01] MEDS: Gabapentin 300 MG CAP PO SCH ×3 (09:06→21:32)
[2021-11-01] MEDS: Polyethylene Glycol 3350 17 GM Packet PO SCH (09:07)
[2021-11-01] MEDS: HumaLOG 300 UNITS/3 ML VIAL SC PRN ×2 (12:10→17:20)
[2021-11-01] MEDS: Famotidine 20 MG TAB PO SCH (21:29)
[2021-11-01] MEDS: Atorvastatin Calcium 40 MG TAB PO SCH (21:30)
[2021-11-01] MEDS: HYDROcodone/Acetaminophen 5/325 mg Tablet PO PRN (21:31)
[2021-11-01] MEDS: traZODone HCl 50 MG TAB PO SCH (21:31)
[2021-11-02] MEDS: Cefepime 2 GM in Sodium Chloride 0.9% 100 ML IVPB SCH ×2 (03:23→14:26)
[2021-11-02] MEDS: Enoxaparin Sodium 40 MG/0.4 ML SYRINGE SC SCH (09:00)
[2021-11-02] MEDS: Gabapentin 300 MG CAP PO SCH ×3 (09:01→22:02)
[2021-11-02] MEDS: Aspirin 81 mg Enteric Coated Tablet PO SCH (09:01)
[2021-11-02] MEDS: Lantus 1000 UNITS/10 ML VIAL SC SCH ×2 (09:01→22:09)
[2021-11-02] MEDS: Calcitriol 0.25 MCG CAP PO SCH (09:01)
[2021-11-02] MEDS: Amlodipine 5 MG TAB PO SCH (09:01)
[2021-11-02] MEDS: Polyethylene Glycol 3350 17 GM Packet PO SCH (09:02)
[2021-11-02] MEDS: Furosemide 40 MG TAB PO SCH (09:02)
[2021-11-02] MEDS: hydrALAZINE 10 MG TAB PO SCH ×3 (09:02→22:00)
[2021-11-02] MEDS: Loratadine 10 MG TAB PO SCH (09:02)
[2021-11-02] MEDS: HumaLOG 300 UNITS/3 ML VIAL SC PRN ×2 (12:40→17:05)
[2021-11-02] MEDS: HYDROcodone/Acetaminophen 5/325 mg Tablet PO PRN ×2 (14:25→22:02)
[2021-11-02] MEDS: Atorvastatin Calcium 40 MG TAB PO SCH (22:01)
[2021-11-02] MEDS: Famotidine 20 MG TAB PO SCH (22:01)
[2021-11-02] MEDS: traZODone HCl 50 MG TAB PO SCH (22:02)
[2021-11-03] MEDS: Cefepime 2 GM in Sodium Chloride 0.9% 100 ML IVPB SCH ×2 (03:19→15:27)
[2021-11-03] MEDS: Lantus 1000 UNITS/10 ML VIAL SC SCH ×2 (09:20→20:59)
[2021-11-03] MEDS: Enoxaparin Sodium 40 MG/0.4 ML SYRINGE SC SCH (09:20)
[2021-11-03] MEDS: hydrALAZINE 10 MG TAB PO SCH ×3 (09:21→20:57)
[2021-11-03] MEDS: Furosemide 40 MG TAB PO SCH (09:22)
[2021-11-03] MEDS: Calcitriol 0.25 MCG CAP PO SCH (09:22)
[2021-11-03] MEDS: Aspirin 81 mg Enteric Coated Tablet PO SCH (09:22)
[2021-11-03] MEDS: Gabapentin 300 MG CAP PO SCH ×3 (09:22→20:58)
[2021-11-03] MEDS: Polyethylene Glycol 3350 17 GM Packet PO SCH (09:22)
[2021-11-03] MEDS: Amlodipine 5 MG TAB PO SCH (09:22)
[2021-11-03] MEDS: Loratadine 10 MG TAB PO SCH (09:22)
[2021-11-03] MEDS: HumaLOG 300 UNITS/3 ML VIAL SC PRN ×2 (11:59→17:27)
[2021-11-03] MEDS: HYDROcodone/Acetaminophen 5/325 mg Tablet PO PRN ×2 (12:00→20:58)
[2021-11-03] MEDS: Atorvastatin Calcium 40 MG TAB PO SCH (20:57)
[2021-11-03] MEDS: traZODone HCl 50 MG TAB PO SCH (20:57)
[2021-11-03] MEDS: Famotidine 20 MG TAB PO SCH (20:58)
[2021-11-04] MEDS: Cefepime 2 GM in Sodium Chloride 0.9% 100 ML IVPB SCH ×2 (03:13→14:43)
[2021-11-04] MEDS: Polyethylene Glycol 3350 17 GM Packet PO SCH (08:35)
[2021-11-04] MEDS: Aspirin 81 mg Enteric Coated Tablet PO SCH (08:35)
[2021-11-04] MEDS: hydrALAZINE 10 MG TAB PO SCH ×4 (08:35→21:15)
[2021-11-04] MEDS: Gabapentin 300 MG CAP PO SCH ×3 (08:36→21:13)
[2021-11-04] MEDS: Amlodipine 5 MG TAB PO SCH (08:36)
[2021-11-04] MEDS: Loratadine 10 MG TAB PO SCH (08:37)
[2021-11-04] MEDS: Furosemide 40 MG TAB PO SCH (08:37)
[2021-11-04] MEDS: Enoxaparin Sodium 40 MG/0.4 ML SYRINGE SC SCH (08:37)
[2021-11-04] MEDS: Lantus 1000 UNITS/10 ML VIAL SC SCH ×2 (08:39→21:18)
[2021-11-04] MEDS: Calcitriol 0.25 MCG CAP PO SCH (08:48)
[2021-11-04] MEDS: HYDROcodone/Acetaminophen 5/325 mg Tablet PO PRN ×2 (12:38→21:12)
[2021-11-04] MEDS: HumaLOG 300 UNITS/3 ML VIAL SC PRN ×2 (12:39→17:44)
[2021-11-04] MEDS: traZODone HCl 50 MG TAB PO SCH (21:16)
[2021-11-04] MEDS: Atorvastatin Calcium 40 MG TAB PO SCH (21:17)
[2021-11-04] MEDS: Famotidine 20 MG TAB PO SCH (21:17)
[2021-11-05] MEDS: Cefepime 2 GM in Sodium Chloride 0.9% 100 ML IVPB SCH ×2 (03:19→15:09)
[2021-11-05] MEDS: HYDROcodone/Acetaminophen 5/325 mg Tablet PO PRN ×2 (09:10→20:40)
[2021-11-05] MEDS: Polyethylene Glycol 3350 17 GM Packet PO SCH (09:12)
[2021-11-05] MEDS: Furosemide 40 MG TAB PO SCH (09:12)
[2021-11-05] MEDS: hydrALAZINE 10 MG TAB PO SCH ×3 (09:14→20:38)
[2021-11-05] MEDS: Loratadine 10 MG TAB PO SCH (09:15)
[2021-11-05] MEDS: Gabapentin 300 MG CAP PO SCH ×3 (09:15→20:36)
[2021-11-05] MEDS: Calcitriol 0.25 MCG CAP PO SCH (09:15)
[2021-11-05] MEDS: Aspirin 81 mg Enteric Coated Tablet PO SCH (09:15)
[2021-11-05] MEDS: Amlodipine 5 MG TAB PO SCH (09:16)
[2021-11-05] MEDS: Enoxaparin Sodium 40 MG/0.4 ML SYRINGE SC SCH (09:16)
[2021-11-05] MEDS: Lantus 1000 UNITS/10 ML VIAL SC SCH ×2 (09:17→20:44)
[2021-11-05] MEDS: HumaLOG 300 UNITS/3 ML VIAL SC PRN ×2 (12:22→18:00)
[2021-11-05] MEDS: Famotidine 20 MG TAB PO SCH (20:37)
[2021-11-05] MEDS: Atorvastatin Calcium 40 MG TAB PO SCH (20:39)
[2021-11-05] MEDS: traZODone HCl 50 MG TAB PO SCH (20:39)
[2021-11-06] MEDS: Cefepime 2 GM in Sodium Chloride 0.9% 100 ML IVPB SCH ×2 (03:14→15:05)
[2021-11-06 04:45] LABS: Platelet Count 180 thou/uL (130-400)
[2021-11-06] MEDS: Enoxaparin Sodium 40 MG/0.4 ML SYRINGE SC SCH (09:04)
[2021-11-06] MEDS: Polyethylene Glycol 3350 17 GM Packet PO SCH (09:04)
[2021-11-06] MEDS: Amlodipine 5 MG TAB PO SCH (09:05)
[2021-11-06] MEDS: Aspirin 81 mg Enteric Coated Tablet PO SCH (09:05)
[2021-11-06] MEDS: hydrALAZINE 10 MG TAB PO SCH ×3 (09:06→20:42)
[2021-11-06] MEDS: Gabapentin 300 MG CAP PO SCH ×3 (09:06→20:43)
[2021-11-06] MEDS: Loratadine 10 MG TAB PO SCH (09:06)
[2021-11-06] MEDS: Calcitriol 0.25 MCG CAP PO SCH (09:07)
[2021-11-06] MEDS: Furosemide 40 MG TAB PO SCH (09:07)
[2021-11-06] MEDS: Lantus 1000 UNITS/10 ML VIAL SC SCH ×2 (09:08→21:08)
[2021-11-06] MEDS: HumaLOG 300 UNITS/3 ML VIAL SC PRN ×4 (09:09→21:01)
[2021-11-06] MEDS: HYDROcodone/Acetaminophen 5/325 mg Tablet PO PRN ×2 (15:08→20:56)
[2021-11-06] MEDS: Atorvastatin Calcium 40 MG TAB PO SCH (20:44)
[2021-11-06] MEDS: traZODone HCl 50 MG TAB PO SCH (20:45)
[2021-11-06] MEDS: Famotidine 20 MG TAB PO SCH (20:46)
[2021-11-07] MEDS: Cefepime 2 GM in Sodium Chloride 0.9% 100 ML IVPB SCH ×2 (03:10→15:45)
[2021-11-07] MEDS: Polyethylene Glycol 3350 17 GM Packet PO SCH (08:36)
[2021-11-07] MEDS: Bisacodyl 5 MG TAB PO PRN (08:39)
[2021-11-07] MEDS: Amlodipine 5 MG TAB PO SCH (08:40)
[2021-11-07] MEDS: Enoxaparin Sodium 40 MG/0.4 ML SYRINGE SC SCH (08:40)
[2021-11-07] MEDS: hydrALAZINE 10 MG TAB PO SCH ×3 (08:41→20:58)
[2021-11-07] MEDS: Gabapentin 300 MG CAP PO SCH ×3 (08:41→20:57)
[2021-11-07] MEDS: Furosemide 40 MG TAB PO SCH (08:41)
[2021-11-07] MEDS: Aspirin 81 mg Enteric Coated Tablet PO SCH (08:42)
[2021-11-07] MEDS: Calcitriol 0.25 MCG CAP PO SCH (08:42)
[2021-11-07] MEDS: Loratadine 10 MG TAB PO SCH (08:42)
[2021-11-07] MEDS: HumaLOG 300 UNITS/3 ML VIAL SC PRN ×3 (08:43→17:28)
[2021-11-07] MEDS: Lantus 1000 UNITS/10 ML VIAL SC SCH ×2 (08:43→20:58)
[2021-11-07] MEDS ORDERED: HumaLOG 300 UNITS/3 ML VIAL SC PRN (18:25)
[2021-11-07] MEDS: Famotidine 20 MG TAB PO SCH (20:56)
[2021-11-07] MEDS: Atorvastatin Calcium 40 MG TAB PO SCH (20:56)
[2021-11-07] MEDS: traZODone HCl 50 MG TAB PO SCH (20:57)
[2021-11-07] MEDS: HYDROcodone/Acetaminophen 5/325 mg Tablet PO PRN (21:08)
[2021-11-08] MEDS: Cefepime 2 GM in Sodium Chloride 0.9% 100 ML IVPB SCH ×2 (03:42→15:34)
[2021-11-08] MEDS: Enoxaparin Sodium 40 MG/0.4 ML SYRINGE SC SCH (10:19)
[2021-11-08] MEDS: Lantus 1000 UNITS/10 ML VIAL SC SCH ×2 (10:19→22:03)
[2021-11-08] MEDS: hydrALAZINE 10 MG TAB PO SCH ×3 (10:20→22:01)
[2021-11-08] MEDS: Furosemide 40 MG TAB PO SCH (10:20)
[2021-11-08] MEDS: Loratadine 10 MG TAB PO SCH (10:20)
[2021-11-08] MEDS: Gabapentin 300 MG CAP PO SCH ×3 (10:21→21:59)
[2021-11-08] MEDS: Amlodipine 5 MG TAB PO SCH (10:21)
[2021-11-08] MEDS: Calcitriol 0.25 MCG CAP PO SCH (10:22)
[2021-11-08] MEDS: Aspirin 81 mg Enteric Coated Tablet PO SCH (10:22)
[2021-11-08] MEDS: HumaLOG 300 UNITS/3 ML VIAL SC PRN ×4 (10:23→22:04)
[2021-11-08] MEDS: Polyethylene Glycol 3350 17 GM Packet PO SCH (15:11)
[2021-11-08] MEDS: HYDROcodone/Acetaminophen 5/325 mg Tablet PO PRN ×2 (15:33→23:12)
[2021-11-08] MEDS: traZODone HCl 50 MG TAB PO SCH (21:59)
[2021-11-08] MEDS: Famotidine 20 MG TAB PO SCH (22:01)
[2021-11-08] MEDS: Atorvastatin Calcium 40 MG TAB PO SCH (22:02)
[2021-11-09] MEDS: Cefepime 2 GM in Sodium Chloride 0.9% 100 ML IVPB SCH ×2 (03:16→15:55)
[2021-11-09] MEDS: Polyethylene Glycol 3350 17 GM Packet PO SCH (09:45)
[2021-11-09] MEDS: Enoxaparin Sodium 40 MG/0.4 ML SYRINGE SC SCH (09:45)
[2021-11-09] MEDS: Lantus 1000 UNITS/10 ML VIAL SC SCH ×2 (09:45→22:09)
[2021-11-09] MEDS: Loratadine 10 MG TAB PO SCH (09:46)
[2021-11-09] MEDS: Aspirin 81 mg Enteric Coated Tablet PO SCH (09:46)
[2021-11-09] MEDS: Furosemide 40 MG TAB PO SCH (09:46)
[2021-11-09] MEDS: Calcitriol 0.25 MCG CAP PO SCH (09:46)
[2021-11-09] MEDS: hydrALAZINE 10 MG TAB PO SCH ×3 (09:46→22:05)
[2021-11-09] MEDS: Amlodipine 5 MG TAB PO SCH (09:47)
[2021-11-09] MEDS: Gabapentin 300 MG CAP PO SCH ×3 (09:47→22:08)
[2021-11-09] MEDS: HumaLOG 300 UNITS/3 ML VIAL SC PRN ×4 (09:50→22:10)
[2021-11-09] MEDS: HYDROcodone/Acetaminophen 5/325 mg Tablet PO PRN ×2 (12:56→22:16)
[2021-11-09] MEDS: Acetaminophen 325 MG TAB PO PRN (15:55)
[2021-11-09] MEDS: traZODone HCl 50 MG TAB PO SCH (22:06)
[2021-11-09] MEDS: Atorvastatin Calcium 40 MG TAB PO SCH (22:07)
[2021-11-09] MEDS: Famotidine 20 MG TAB PO SCH (22:09)
[2021-11-10] MEDS: Cefepime 2 GM in Sodium Chloride 0.9% 100 ML IVPB SCH ×2 (03:38→14:31)
[2021-11-10] MEDS: Gabapentin 300 MG CAP PO SCH ×3 (10:05→21:48)
[2021-11-10] MEDS: hydrALAZINE 10 MG TAB PO SCH ×3 (10:08→21:46)
[2021-11-10] MEDS: Aspirin 81 mg Enteric Coated Tablet PO SCH (10:10)
[2021-11-10] MEDS: Furosemide 40 MG TAB PO SCH (10:10)
[2021-11-10] MEDS: Enoxaparin Sodium 40 MG/0.4 ML SYRINGE SC SCH (10:10)
[2021-11-10] MEDS: Calcitriol 0.25 MCG CAP PO SCH (10:11)
[2021-11-10] MEDS: Amlodipine 5 MG TAB PO SCH (10:11)
[2021-11-10] MEDS: Lantus 1000 UNITS/10 ML VIAL SC SCH ×2 (10:13→21:43)
[2021-11-10] MEDS: Polyethylene Glycol 3350 17 GM Packet PO SCH (10:15)
[2021-11-10] MEDS: Loratadine 10 MG TAB PO SCH (10:16)
[2021-11-10] MEDS: HumaLOG 300 UNITS/3 ML VIAL SC PRN ×3 (13:14→21:43)
[2021-11-10] MEDS: traZODone HCl 50 MG TAB PO SCH (21:47)
[2021-11-10] MEDS: Famotidine 20 MG TAB PO SCH (21:47)
[2021-11-10] MEDS: Atorvastatin Calcium 40 MG TAB PO SCH (21:48)
[2021-11-10] MEDS: HYDROcodone/Acetaminophen 5/325 mg Tablet PO PRN (21:51)
[2021-11-11] MEDS: Cefepime 2 GM in Sodium Chloride 0.9% 100 ML IVPB SCH ×2 (03:14→15:08)
[2021-11-11] MEDS: Polyethylene Glycol 3350 17 GM Packet PO SCH (08:52)
[2021-11-11] MEDS: Enoxaparin Sodium 40 MG/0.4 ML SYRINGE SC SCH (08:52)
[2021-11-11] MEDS: hydrALAZINE 10 MG TAB PO SCH ×3 (08:53→21:39)
[2021-11-11] MEDS: Calcitriol 0.25 MCG CAP PO SCH (08:54)
[2021-11-11] MEDS: Gabapentin 300 MG CAP PO SCH ×3 (08:54→21:40)
[2021-11-11] MEDS: Lantus 1000 UNITS/10 ML VIAL SC SCH ×2 (08:57→21:41)
[2021-11-11] MEDS: Loratadine 10 MG TAB PO SCH (08:57)
[2021-11-11] MEDS: Furosemide 40 MG TAB PO SCH (08:57)
[2021-11-11] MEDS: Aspirin 81 mg Enteric Coated Tablet PO SCH (08:57)
[2021-11-11] MEDS: Amlodipine 5 MG TAB PO SCH (08:57)
[2021-11-11] MEDS: HumaLOG 300 UNITS/3 ML VIAL SC PRN ×2 (12:25→17:50)
[2021-11-11] MEDS: Bisacodyl 5 MG TAB PO PRN (18:02)
[2021-11-11] MEDS: HYDROcodone/Acetaminophen 5/325 mg Tablet PO PRN (21:37)
[2021-11-11] MEDS: Atorvastatin Calcium 40 MG TAB PO SCH (21:38)
[2021-11-11] MEDS: Famotidine 20 MG TAB PO SCH (21:39)
[2021-11-11] MEDS: traZODone HCl 50 MG TAB PO SCH (21:39)
[2021-11-12] MEDS: Cefepime 2 GM in Sodium Chloride 0.9% 100 ML IVPB SCH ×2 (03:11→15:33)
[2021-11-12] MEDS: Enoxaparin Sodium 40 MG/0.4 ML SYRINGE SC SCH (08:59)
[2021-11-12] MEDS: hydrALAZINE 10 MG TAB PO SCH ×3 (08:59→20:29)
[2021-11-12] MEDS: Aspirin 81 mg Enteric Coated Tablet PO SCH (08:59)
[2021-11-12] MEDS: Polyethylene Glycol 3350 17 GM Packet PO SCH (08:59)
[2021-11-12] MEDS: Amlodipine 5 MG TAB PO SCH (09:00)
[2021-11-12] MEDS: HYDROcodone/Acetaminophen 5/325 mg Tablet PO PRN ×2 (09:01→20:30)
[2021-11-12] MEDS: Gabapentin 300 MG CAP PO SCH ×3 (09:01→20:31)
[2021-11-12] MEDS: Calcitriol 0.25 MCG CAP PO SCH (09:01)
[2021-11-12] MEDS: Furosemide 40 MG TAB PO SCH (09:02)
[2021-11-12] MEDS: Loratadine 10 MG TAB PO SCH (09:02)
[2021-11-12] MEDS: Lantus 1000 UNITS/10 ML VIAL SC SCH ×2 (09:05→20:28)
[2021-11-12] MEDS: HumaLOG 300 UNITS/3 ML VIAL SC PRN (17:00)
[2021-11-12] MEDS: Famotidine 20 MG TAB PO SCH (20:29)
[2021-11-12] MEDS: Atorvastatin Calcium 40 MG TAB PO SCH (20:29)
[2021-11-12] MEDS: traZODone HCl 50 MG TAB PO SCH (20:29)
[2021-11-13] MEDS: Cefepime 2 GM in Sodium Chloride 0.9% 100 ML IVPB SCH ×2 (03:00→14:34)
[2021-11-13] MEDS: hydrALAZINE 10 MG TAB PO SCH ×3 (08:41→20:57)
[2021-11-13] MEDS: Aspirin 81 mg Enteric Coated Tablet PO SCH (08:41)
[2021-11-13] MEDS: Calcitriol 0.25 MCG CAP PO SCH (08:41)
[2021-11-13] MEDS: Loratadine 10 MG TAB PO SCH (08:42)
[2021-11-13] MEDS: Gabapentin 300 MG CAP PO SCH ×3 (08:42→21:00)
[2021-11-13] MEDS: Amlodipine 5 MG TAB PO SCH (08:42)
[2021-11-13] MEDS: Enoxaparin Sodium 40 MG/0.4 ML SYRINGE SC SCH (08:43)
[2021-11-13] MEDS: Furosemide 40 MG TAB PO SCH (08:43)
[2021-11-13] MEDS: Lantus 1000 UNITS/10 ML VIAL SC SCH ×2 (08:44→20:57)
[2021-11-13] MEDS: Polyethylene Glycol 3350 17 GM Packet PO SCH (09:05)
[2021-11-13] MEDS: HumaLOG 300 UNITS/3 ML VIAL SC PRN ×2 (12:14→17:15)
[2021-11-13] MEDS: Atorvastatin Calcium 40 MG TAB PO SCH (20:58)
[2021-11-13] MEDS: Famotidine 20 MG TAB PO SCH (20:58)
[2021-11-13] MEDS: traZODone HCl 50 MG TAB PO SCH (20:58)
[2021-11-13] MEDS: HYDROcodone/Acetaminophen 5/325 mg Tablet PO PRN (20:59)
[2021-11-14] MEDS: Cefepime 2 GM in Sodium Chloride 0.9% 100 ML IVPB SCH ×2 (02:49→15:04)
[2021-11-14] MEDS: Gabapentin 300 MG CAP PO SCH ×3 (08:50→20:39)
[2021-11-14] MEDS: Calcitriol 0.25 MCG CAP PO SCH (08:50)
[2021-11-14] MEDS: Polyethylene Glycol 3350 17 GM Packet PO SCH (08:50)
[2021-11-14] MEDS: hydrALAZINE 10 MG TAB PO SCH ×3 (08:51→20:37)
[2021-11-14] MEDS: Loratadine 10 MG TAB PO SCH (08:51)
[2021-11-14] MEDS: Furosemide 40 MG TAB PO SCH (08:52)
[2021-11-14] MEDS: Aspirin 81 mg Enteric Coated Tablet PO SCH (08:52)
[2021-11-14] MEDS: Amlodipine 5 MG TAB PO SCH (08:52)
[2021-11-14] MEDS: Enoxaparin Sodium 40 MG/0.4 ML SYRINGE SC SCH (08:52)
[2021-11-14] MEDS: Lantus 1000 UNITS/10 ML VIAL SC SCH ×2 (09:07→20:33)
[2021-11-14] MEDS: HumaLOG 300 UNITS/3 ML VIAL SC PRN ×2 (16:54→20:32)
[2021-11-14] MEDS: Atorvastatin Calcium 40 MG TAB PO SCH (20:35)
[2021-11-14] MEDS: Famotidine 20 MG TAB PO SCH (20:36)
[2021-11-14] MEDS: traZODone HCl 50 MG TAB PO SCH (20:37)
[2021-11-14] MEDS: HYDROcodone/Acetaminophen 5/325 mg Tablet PO PRN (20:38)
[2021-11-15] MEDS: Cefepime 2 GM in Sodium Chloride 0.9% 100 ML IVPB SCH ×2 (02:55→14:29)
[2021-11-15] MEDS: Gabapentin 300 MG CAP PO SCH ×3 (08:28→21:00)
[2021-11-15] MEDS: Amlodipine 5 MG TAB PO SCH (08:28)
[2021-11-15] MEDS: hydrALAZINE 10 MG TAB PO SCH ×3 (08:28→20:59)
[2021-11-15] MEDS: Calcitriol 0.25 MCG CAP PO SCH (08:28)
[2021-11-15] MEDS: Loratadine 10 MG TAB PO SCH (08:28)
[2021-11-15] MEDS: Aspirin 81 mg Enteric Coated Tablet PO SCH (08:29)
[2021-11-15] MEDS: Polyethylene Glycol 3350 17 GM Packet PO SCH (08:29)
[2021-11-15] MEDS: Lantus 1000 UNITS/10 ML VIAL SC SCH ×2 (08:29→20:57)
[2021-11-15] MEDS: Furosemide 40 MG TAB PO SCH (08:29)
[2021-11-15] MEDS: Enoxaparin Sodium 40 MG/0.4 ML SYRINGE SC SCH (08:30)
[2021-11-15] MEDS: HumaLOG 300 UNITS/3 ML VIAL SC PRN ×2 (12:39→17:23)
[2021-11-15] MEDS: HYDROcodone/Acetaminophen 5/325 mg Tablet PO PRN (20:58)
[2021-11-15] MEDS: Atorvastatin Calcium 40 MG TAB PO SCH (20:59)
[2021-11-15] MEDS: traZODone HCl 50 MG TAB PO SCH (20:59)
[2021-11-15] MEDS: Famotidine 20 MG TAB PO SCH (21:00)
[2021-11-16] MEDS: Cefepime 2 GM in Sodium Chloride 0.9% 100 ML IVPB SCH ×2 (03:55→14:43)
[2021-11-16] MEDS: Lantus 1000 UNITS/10 ML VIAL SC SCH ×2 (08:20→20:18)
[2021-11-16] MEDS: Enoxaparin Sodium 40 MG/0.4 ML SYRINGE SC SCH (08:20)
[2021-11-16] MEDS: Polyethylene Glycol 3350 17 GM Packet PO SCH (08:20)
[2021-11-16] MEDS: Amlodipine 5 MG TAB PO SCH (08:22)
[2021-11-16] MEDS: Gabapentin 300 MG CAP PO SCH ×3 (08:23→20:21)
[2021-11-16] MEDS: Loratadine 10 MG TAB PO SCH (08:24)
[2021-11-16] MEDS: hydrALAZINE 10 MG TAB PO SCH ×3 (08:24→20:20)
[2021-11-16] MEDS: Calcitriol 0.25 MCG CAP PO SCH (08:24)
[2021-11-16] MEDS: Aspirin 81 mg Enteric Coated Tablet PO SCH (08:25)
[2021-11-16] MEDS: Furosemide 40 MG TAB PO SCH (08:25)
[2021-11-16] MEDS: HumaLOG 300 UNITS/3 ML VIAL SC PRN (16:53)
[2021-11-16] MEDS: traZODone HCl 50 MG TAB PO SCH (20:19)
[2021-11-16] MEDS: Atorvastatin Calcium 40 MG TAB PO SCH (20:20)
[2021-11-16] MEDS: Famotidine 20 MG TAB PO SCH (20:20)
[2021-11-16] MEDS: HYDROcodone/Acetaminophen 5/325 mg Tablet PO PRN (20:22)
[2021-11-17] MEDS: Cefepime 2 GM in Sodium Chloride 0.9% 100 ML IVPB SCH ×2 (03:00→15:17)
[2021-11-17] MEDS: Aspirin 81 mg Enteric Coated Tablet PO SCH (09:39)
[2021-11-17] MEDS: hydrALAZINE 10 MG TAB PO SCH ×3 (09:39→20:42)
[2021-11-17] MEDS: Calcitriol 0.25 MCG CAP PO SCH (09:40)
[2021-11-17] MEDS: Gabapentin 300 MG CAP PO SCH ×3 (09:40→20:42)
[2021-11-17] MEDS: Enoxaparin Sodium 40 MG/0.4 ML SYRINGE SC SCH (09:41)
[2021-11-17] MEDS: Amlodipine 5 MG TAB PO SCH (09:41)
[2021-11-17] MEDS: Furosemide 40 MG TAB PO SCH (09:41)
[2021-11-17] MEDS: Loratadine 10 MG TAB PO SCH (09:41)
[2021-11-17] MEDS: Lantus 1000 UNITS/10 ML VIAL SC SCH ×2 (09:43→20:39)
[2021-11-17] MEDS: Polyethylene Glycol 3350 17 GM Packet PO SCH (09:46)
[2021-11-17] MEDS: HumaLOG 300 UNITS/3 ML VIAL SC PRN ×2 (15:27→17:09)
[2021-11-17] MEDS: Acetaminophen 325 MG TAB PO PRN (15:29)
[2021-11-17] MEDS: Famotidine 20 MG TAB PO SCH (20:41)
[2021-11-17] MEDS: traZODone HCl 50 MG TAB PO SCH (20:42)
[2021-11-17] MEDS: Atorvastatin Calcium 40 MG TAB PO SCH (20:42)
[2021-11-17] MEDS: HYDROcodone/Acetaminophen 5/325 mg Tablet PO PRN (20:43)
[2021-11-18] MEDS: Cefepime 2 GM in Sodium Chloride 0.9% 100 ML IVPB SCH ×2 (03:15→14:54)
[2021-11-18] MEDS: Enoxaparin Sodium 40 MG/0.4 ML SYRINGE SC SCH (08:38)
[2021-11-18] MEDS: Furosemide 40 MG TAB PO SCH (08:39)
[2021-11-18] MEDS: Loratadine 10 MG TAB PO SCH (08:39)
[2021-11-18] MEDS: Calcitriol 0.25 MCG CAP PO SCH (08:39)
[2021-11-18] MEDS: Amlodipine 5 MG TAB PO SCH (08:39)
[2021-11-18] MEDS: Aspirin 81 mg Enteric Coated Tablet PO SCH (08:39)
[2021-11-18] MEDS: Gabapentin 300 MG CAP PO SCH ×3 (08:40→20:58)
[2021-11-18] MEDS: Polyethylene Glycol 3350 17 GM Packet PO SCH (08:43)
[2021-11-18] MEDS: hydrALAZINE 10 MG TAB PO SCH ×3 (08:45→20:56)
[2021-11-18] MEDS: Lantus 1000 UNITS/10 ML VIAL SC SCH ×2 (08:46→20:54)
[2021-11-18] MEDS: HYDROcodone/Acetaminophen 5/325 mg Tablet PO PRN ×2 (13:04→20:54)
[2021-11-18] MEDS: HumaLOG 300 UNITS/3 ML VIAL SC PRN ×2 (17:33→20:53)
[2021-11-18] MEDS: Atorvastatin Calcium 40 MG TAB PO SCH (20:56)
[2021-11-18] MEDS: traZODone HCl 50 MG TAB PO SCH (20:57)
[2021-11-18] MEDS: Famotidine 20 MG TAB PO SCH (20:59)
[2021-11-19] MEDS: Cefepime 2 GM in Sodium Chloride 0.9% 100 ML IVPB SCH ×2 (03:20→14:54)
[2021-11-19] MEDS: Lantus 1000 UNITS/10 ML VIAL SC SCH ×2 (09:57→21:20)
[2021-11-19] MEDS: Gabapentin 300 MG CAP PO SCH ×3 (09:57→21:15)
[2021-11-19] MEDS: Furosemide 40 MG TAB PO SCH (09:58)
[2021-11-19] MEDS: hydrALAZINE 10 MG TAB PO SCH ×3 (09:58→21:16)
[2021-11-19] MEDS: Calcitriol 0.25 MCG CAP PO SCH (09:59)
[2021-11-19] MEDS: Aspirin 81 mg Enteric Coated Tablet PO SCH (09:59)
[2021-11-19] MEDS: Loratadine 10 MG TAB PO SCH (09:59)
[2021-11-19] MEDS: Amlodipine 5 MG TAB PO SCH (09:59)
[2021-11-19] MEDS: Enoxaparin Sodium 40 MG/0.4 ML SYRINGE SC SCH (09:59)
[2021-11-19] MEDS: Polyethylene Glycol 3350 17 GM Packet PO SCH (10:00)
[2021-11-19] MEDS: traZODone HCl 50 MG TAB PO SCH (21:16)
[2021-11-19] MEDS: Atorvastatin Calcium 40 MG TAB PO SCH (21:17)
[2021-11-19] MEDS: Famotidine 20 MG TAB PO SCH (21:17)
[2021-11-19] MEDS: HYDROcodone/Acetaminophen 5/325 mg Tablet PO PRN (21:18)
[2021-11-19] MEDS: HumaLOG 300 UNITS/3 ML VIAL SC PRN (21:21)
[2021-11-20] MEDS: Cefepime 2 GM in Sodium Chloride 0.9% 100 ML IVPB SCH ×2 (03:27→15:04)
[2021-11-20] MEDS: Enoxaparin Sodium 40 MG/0.4 ML SYRINGE SC SCH (09:03)
[2021-11-20] MEDS: Lantus 1000 UNITS/10 ML VIAL SC SCH ×2 (09:04→21:16)
[2021-11-20] MEDS: hydrALAZINE 10 MG TAB PO SCH ×3 (09:04→21:15)
[2021-11-20] MEDS: Gabapentin 300 MG CAP PO SCH ×3 (09:05→21:14)
[2021-11-20] MEDS: Amlodipine 5 MG TAB PO SCH (09:06)
[2021-11-20] MEDS: Calcitriol 0.25 MCG CAP PO SCH (09:06)
[2021-11-20] MEDS: Furosemide 40 MG TAB PO SCH (09:07)
[2021-11-20] MEDS: Aspirin 81 mg Enteric Coated Tablet PO SCH (09:07)
[2021-11-20] MEDS: Polyethylene Glycol 3350 17 GM Packet PO SCH (09:07)
[2021-11-20] MEDS: Loratadine 10 MG TAB PO SCH (09:07)
[2021-11-20] MEDS: HumaLOG 300 UNITS/3 ML VIAL SC PRN ×3 (12:15→21:16)
[2021-11-20] MEDS: HYDROcodone/Acetaminophen 5/325 mg Tablet PO PRN (21:10)
[2021-11-20] MEDS: Atorvastatin Calcium 40 MG TAB PO SCH (21:12)
[2021-11-20] MEDS: traZODone HCl 50 MG TAB PO SCH (21:13)
[2021-11-20] MEDS: Famotidine 20 MG TAB PO SCH (21:15)
[2021-11-21] MEDS: Cefepime 2 GM in Sodium Chloride 0.9% 100 ML IVPB SCH ×2 (03:00→14:48)
[2021-11-21] MEDS: Enoxaparin Sodium 40 MG/0.4 ML SYRINGE SC SCH (09:27)
[2021-11-21] MEDS: Loratadine 10 MG TAB PO SCH (09:28)
[2021-11-21] MEDS: hydrALAZINE 10 MG TAB PO SCH ×3 (09:28→20:57)
[2021-11-21] MEDS: Calcitriol 0.25 MCG CAP PO SCH (09:28)
[2021-11-21] MEDS: Amlodipine 5 MG TAB PO SCH (09:29)
[2021-11-21] MEDS: Aspirin 81 mg Enteric Coated Tablet PO SCH (09:30)
[2021-11-21] MEDS: Furosemide 40 MG TAB PO SCH (09:31)
[2021-11-21] MEDS: Polyethylene Glycol 3350 17 GM Packet PO SCH (09:31)
[2021-11-21] MEDS: Lantus 1000 UNITS/10 ML VIAL SC SCH ×2 (09:31→20:59)
[2021-11-21] MEDS: Gabapentin 300 MG CAP PO SCH ×3 (09:37→20:57)
[2021-11-21] MEDS: HumaLOG 300 UNITS/3 ML VIAL SC PRN ×3 (12:55→20:58)
[2021-11-21] MEDS: HYDROcodone/Acetaminophen 5/325 mg Tablet PO PRN (20:55)
[2021-11-21] MEDS: Atorvastatin Calcium 40 MG TAB PO SCH (20:56)
[2021-11-21] MEDS: traZODone HCl 50 MG TAB PO SCH (20:57)
[2021-11-21] MEDS: Famotidine 20 MG TAB PO SCH (20:58)
[2021-11-22] MEDS: Cefepime 2 GM in Sodium Chloride 0.9% 100 ML IVPB SCH ×2 (03:08→15:39)
[2021-11-22 05:51] LABS: #Basophils 0.1 thou/uL (0.0-0.2); #Eosinphils 0.7 thou/uL (0.0-0.7); #Lymphocytes 2.5 thou/uL (1.20-3.40); #Monocytes 0.5 thou/uL (0.11-0.59); #Neutrophils 3.6 thou/uL (1.40-6.50); %Eosinophils 9.1 % (0.0-10.0); %Lymphocytes 34.1 % (21.0-51.0); %Monocytes 6.8 % (0.0-10.0); Hemoglobin 9.4 g/dL (14.0-18.0); Mean Corpuscular HGB CONC 32.2 g/dL (32.0-36.0); Mean Corpuscular Hemoglobin 25.7 pg (27.0-31.0); Mean Corpuscular Volume 79.9 fL (78.0-98.0); Mean Platelet Volume 8.4 fL (7.4-10.4); Platelet Count 168 thou/uL (130-400); RBC Distribution Width 16.2 % (11.5-14.5); Red Blood Cell (RBC) Count 3.66 mill/uL (4.70-6.10); White Blood Cell (WBC) Count 7.4 thou/uL (4.8-10.8)
[2021-11-22 06:00] LABS: ALT (SGPT) 52 U/L (8-55); AST (SGOT) 20 U/L (5-34); Albumin 3.3 g/dL (3.5-5.0); Alkaline Phosphatase 70 U/L (40-110); Anion Gap 13 mmol/L (10-20); BUN (Urea Nitrogen) 79 mg/dL (8.4-25.7); Bilirubin, Total 0.3 mg/dL (0.2-1.2); CRP (Inflammatory) 1.56 mg/dL (= or < 0.5); Calc. Creatinine Clearance 77 mL/min (70-130); Calcium 8.8 mg/dL (7.8-10.44); Carbon Dioxide 27 mmol/L (22-29); Chloride 103 mmol/L (98-107); Estimated GFR 28; Globulin 3.2 g/dL (2.4-3.5); Glucose 143 mg/dL (70-105); Potassium 3.9 mmol/L (3.5-5.1); Protein, Total 6.5 g/dL (6.0-8.3); Sodium 139 mmol/L (136-145)
[2021-11-22] MEDS: hydrALAZINE 10 MG TAB PO SCH ×3 (09:41→21:48)
[2021-11-22] MEDS: Amlodipine 5 MG TAB PO SCH (09:41)
[2021-11-22] MEDS: Gabapentin 300 MG CAP PO SCH ×3 (09:41→21:45)
[2021-11-22] MEDS: Calcitriol 0.25 MCG CAP PO SCH (09:41)
[2021-11-22] MEDS: Aspirin 81 mg Enteric Coated Tablet PO SCH (09:41)
[2021-11-22] MEDS: Loratadine 10 MG TAB PO SCH (09:42)
[2021-11-22] MEDS: Enoxaparin Sodium 40 MG/0.4 ML SYRINGE SC SCH (09:42)
[2021-11-22] MEDS: Furosemide 40 MG TAB PO SCH (09:42)
[2021-11-22] MEDS: Lantus 1000 UNITS/10 ML VIAL SC SCH ×2 (09:42→21:43)
[2021-11-22] MEDS: Polyethylene Glycol 3350 17 GM Packet PO SCH (09:43)
[2021-11-22] MEDS: HumaLOG 300 UNITS/3 ML VIAL SC PRN ×2 (17:02→21:43)
[2021-11-22] MEDS: traZODone HCl 50 MG TAB PO SCH (21:45)
[2021-11-22] MEDS: Atorvastatin Calcium 40 MG TAB PO SCH (21:45)
[2021-11-22] MEDS: HYDROcodone/Acetaminophen 5/325 mg Tablet PO PRN (21:46)
[2021-11-22] MEDS: Famotidine 20 MG TAB PO SCH (21:48)
[2021-11-23] MEDS: Cefepime 2 GM in Sodium Chloride 0.9% 100 ML IVPB SCH ×2 (03:25→15:51)
[2021-11-23] MEDS: Lantus 1000 UNITS/10 ML VIAL SC SCH ×2 (10:19→21:34)
[2021-11-23] MEDS: hydrALAZINE 10 MG TAB PO SCH ×3 (10:20→21:35)
[2021-11-23] MEDS: Calcitriol 0.25 MCG CAP PO SCH (10:20)
[2021-11-23] MEDS: Amlodipine 5 MG TAB PO SCH (10:20)
[2021-11-23] MEDS: Aspirin 81 mg Enteric Coated Tablet PO SCH (10:20)
[2021-11-23] MEDS: Furosemide 40 MG TAB PO SCH (10:21)
[2021-11-23] MEDS: Loratadine 10 MG TAB PO SCH (10:21)
[2021-11-23] MEDS: Gabapentin 300 MG CAP PO SCH ×3 (10:21→21:35)
[2021-11-23] MEDS: Polyethylene Glycol 3350 17 GM Packet PO SCH (10:22)
[2021-11-23] MEDS: Enoxaparin Sodium 40 MG/0.4 ML SYRINGE SC SCH (10:22)
[2021-11-23] MEDS: HumaLOG 300 UNITS/3 ML VIAL SC PRN ×2 (12:07→18:23)
[2021-11-23] MEDS: HYDROcodone/Acetaminophen 5/325 mg Tablet PO PRN ×2 (15:48→21:36)
[2021-11-23] MEDS: Atorvastatin Calcium 40 MG TAB PO SCH (21:34)
[2021-11-23] MEDS: traZODone HCl 50 MG TAB PO SCH (21:37)
[2021-11-23] MEDS: Famotidine 20 MG TAB PO SCH (21:38)
[2021-11-24] MEDS: Cefepime 2 GM in Sodium Chloride 0.9% 100 ML IVPB SCH ×2 (05:38→15:26)
[2021-11-24] MEDS: Lantus 1000 UNITS/10 ML VIAL SC SCH ×2 (10:38→21:44)
[2021-11-24] MEDS: Enoxaparin Sodium 40 MG/0.4 ML SYRINGE SC SCH (10:38)
[2021-11-24] MEDS: Calcitriol 0.25 MCG CAP PO SCH (10:39)
[2021-11-24] MEDS: Loratadine 10 MG TAB PO SCH (10:39)
[2021-11-24] MEDS: Amlodipine 5 MG TAB PO SCH (10:39)
[2021-11-24] MEDS: Aspirin 81 mg Enteric Coated Tablet PO SCH (10:39)
[2021-11-24] MEDS: hydrALAZINE 10 MG TAB PO SCH ×3 (10:39→21:39)
[2021-11-24] MEDS: Furosemide 40 MG TAB PO SCH (10:40)
[2021-11-24] MEDS: Gabapentin 300 MG CAP PO SCH ×3 (10:40→21:40)
[2021-11-24] MEDS: Polyethylene Glycol 3350 17 GM Packet PO SCH (10:42)
[2021-11-24] MEDS: HumaLOG 300 UNITS/3 ML VIAL SC PRN ×2 (18:12→21:45)
[2021-11-24] MEDS: Atorvastatin Calcium 40 MG TAB PO SCH (21:39)
[2021-11-24] MEDS: HYDROcodone/Acetaminophen 5/325 mg Tablet PO PRN (21:42)
[2021-11-24] MEDS: traZODone HCl 50 MG TAB PO SCH (21:43)
[2021-11-24] MEDS: Famotidine 20 MG TAB PO SCH (21:43)
[2021-11-25] MEDS: Cefepime 2 GM in Sodium Chloride 0.9% 100 ML IVPB SCH ×2 (03:17→16:39)
[2021-11-25] MEDS: Lantus 1000 UNITS/10 ML VIAL SC SCH ×2 (09:05→20:51)
[2021-11-25] MEDS: Enoxaparin Sodium 40 MG/0.4 ML SYRINGE SC SCH (09:07)
[2021-11-25] MEDS: Gabapentin 300 MG CAP PO SCH ×3 (09:08→20:49)
[2021-11-25] MEDS: Aspirin 81 mg Enteric Coated Tablet PO SCH (09:08)
[2021-11-25] MEDS: Amlodipine 5 MG TAB PO SCH (09:09)
[2021-11-25] MEDS: Furosemide 40 MG TAB PO SCH (09:10)
[2021-11-25] MEDS: hydrALAZINE 10 MG TAB PO SCH ×3 (09:10→20:50)
[2021-11-25] MEDS: Loratadine 10 MG TAB PO SCH (09:10)
[2021-11-25] MEDS: Calcitriol 0.25 MCG CAP PO SCH (09:10)
[2021-11-25] MEDS: Polyethylene Glycol 3350 17 GM Packet PO SCH (09:11)
[2021-11-25] MEDS: HYDROcodone/Acetaminophen 5/325 mg Tablet PO PRN ×2 (12:05→20:50)
[2021-11-25] MEDS: HumaLOG 300 UNITS/3 ML VIAL SC PRN (18:48)
[2021-11-25] MEDS: traZODone HCl 50 MG TAB PO SCH (20:49)
[2021-11-25] MEDS: Famotidine 20 MG TAB PO SCH (20:50)
[2021-11-25] MEDS: Atorvastatin Calcium 40 MG TAB PO SCH (20:50)
[2021-11-26] MEDS: Cefepime 2 GM in Sodium Chloride 0.9% 100 ML IVPB SCH ×2 (02:50→16:08)
[2021-11-26] MEDS: Enoxaparin Sodium 40 MG/0.4 ML SYRINGE SC SCH (10:19)
[2021-11-26] MEDS: Lantus 1000 UNITS/10 ML VIAL SC SCH ×2 (10:20→20:53)
[2021-11-26] MEDS: Furosemide 40 MG TAB PO SCH (10:20)
[2021-11-26] MEDS: Gabapentin 300 MG CAP PO SCH ×3 (10:20→20:54)
[2021-11-26] MEDS: Calcitriol 0.25 MCG CAP PO SCH (10:20)
[2021-11-26] MEDS: Amlodipine 5 MG TAB PO SCH (10:21)
[2021-11-26] MEDS: Aspirin 81 mg Enteric Coated Tablet PO SCH (10:21)
[2021-11-26] MEDS: hydrALAZINE 10 MG TAB PO SCH ×3 (10:22→20:55)
[2021-11-26] MEDS: Loratadine 10 MG TAB PO SCH (10:23)
[2021-11-26] MEDS: Polyethylene Glycol 3350 17 GM Packet PO SCH (10:24)
[2021-11-26] MEDS: HumaLOG 300 UNITS/3 ML VIAL SC PRN ×3 (13:11→20:54)
[2021-11-26] MEDS: HYDROcodone/Acetaminophen 5/325 mg Tablet PO PRN (20:52)
[2021-11-26] MEDS: Atorvastatin Calcium 40 MG TAB PO SCH (20:55)
[2021-11-26] MEDS: traZODone HCl 50 MG TAB PO SCH (20:55)
[2021-11-26] MEDS: Famotidine 20 MG TAB PO SCH (20:56)
[2021-11-27] MEDS: Lantus 1000 UNITS/10 ML VIAL SC SCH ×2 (08:09→21:33)
[2021-11-27] MEDS: Enoxaparin Sodium 40 MG/0.4 ML SYRINGE SC SCH (08:10)
[2021-11-27] MEDS: Loratadine 10 MG TAB PO SCH (08:11)
[2021-11-27] MEDS: Amlodipine 5 MG TAB PO SCH (08:11)
[2021-11-27] MEDS: Aspirin 81 mg Enteric Coated Tablet PO SCH (08:11)
[2021-11-27] MEDS: Calcitriol 0.25 MCG CAP PO SCH (08:11)
[2021-11-27] MEDS: Furosemide 40 MG TAB PO SCH (08:11)
[2021-11-27] MEDS: Gabapentin 300 MG CAP PO SCH ×3 (08:11→21:30)
[2021-11-27] MEDS: Polyethylene Glycol 3350 17 GM Packet PO SCH (08:12)
[2021-11-27] MEDS: hydrALAZINE 10 MG TAB PO SCH ×3 (08:12→21:31)
[2021-11-27] MEDS: HYDROcodone/Acetaminophen 5/325 mg Tablet PO PRN (19:24)
[2021-11-27] MEDS: Famotidine 20 MG TAB PO SCH (21:30)
[2021-11-27] MEDS: traZODone HCl 50 MG TAB PO SCH (21:30)
[2021-11-27] MEDS: Atorvastatin Calcium 40 MG TAB PO SCH (21:31)
[2021-11-27] MEDS: HumaLOG 300 UNITS/3 ML VIAL SC PRN (21:34)
[2021-11-28] MEDS: Amlodipine 5 MG TAB PO SCH (08:44)
[2021-11-28] MEDS: Loratadine 10 MG TAB PO SCH (08:44)
[2021-11-28] MEDS: HYDROcodone/Acetaminophen 5/325 mg Tablet PO PRN ×3 (08:44→21:18)
[2021-11-28] MEDS: Enoxaparin Sodium 40 MG/0.4 ML SYRINGE SC SCH (08:44)
[2021-11-28] MEDS: Gabapentin 300 MG CAP PO SCH ×3 (08:45→21:05)
[2021-11-28] MEDS: Furosemide 40 MG TAB PO SCH (08:45)
[2021-11-28] MEDS: hydrALAZINE 10 MG TAB PO SCH ×3 (08:45→21:04)
[2021-11-28] MEDS: Calcitriol 0.25 MCG CAP PO SCH (08:45)
[2021-11-28] MEDS: Lantus 1000 UNITS/10 ML VIAL SC SCH ×2 (08:45→21:11)
[2021-11-28] MEDS: Aspirin 81 mg Enteric Coated Tablet PO SCH (08:45)
[2021-11-28] MEDS: Polyethylene Glycol 3350 17 GM Packet PO SCH (08:46)
[2021-11-28] MEDS: HumaLOG 300 UNITS/3 ML VIAL SC PRN (16:52)
[2021-11-28] MEDS: Atorvastatin Calcium 40 MG TAB PO SCH (21:02)
[2021-11-28] MEDS: traZODone HCl 50 MG TAB PO SCH (21:05)
[2021-11-28] MEDS: Famotidine 20 MG TAB PO SCH (21:05)
[2021-11-29] MEDS: Calcitriol 0.25 MCG CAP PO SCH (08:59)
[2021-11-29] MEDS: Aspirin 81 mg Enteric Coated Tablet PO SCH (08:59)
[2021-11-29] MEDS: hydrALAZINE 10 MG TAB PO SCH ×3 (08:59→20:29)
[2021-11-29] MEDS: Furosemide 40 MG TAB PO SCH (08:59)
[2021-11-29] MEDS: Loratadine 10 MG TAB PO SCH (08:59)
[2021-11-29] MEDS: Gabapentin 300 MG CAP PO SCH ×3 (09:00→20:30)
[2021-11-29] MEDS: Amlodipine 5 MG TAB PO SCH (09:00)
[2021-11-29] MEDS: Enoxaparin Sodium 40 MG/0.4 ML SYRINGE SC SCH (09:02)
[2021-11-29] MEDS: Lantus 1000 UNITS/10 ML VIAL SC SCH ×2 (09:02→20:31)
[2021-11-29] MEDS: Polyethylene Glycol 3350 17 GM Packet PO SCH (09:03)
[2021-11-29] MEDS: HumaLOG 300 UNITS/3 ML VIAL SC PRN (12:11)
[2021-11-29] MEDS: Famotidine 20 MG TAB PO SCH (20:29)
[2021-11-29] MEDS: traZODone HCl 50 MG TAB PO SCH (20:29)
[2021-11-29] MEDS: Atorvastatin Calcium 40 MG TAB PO SCH (20:29)
[2021-11-29] MEDS: HYDROcodone/Acetaminophen 5/325 mg Tablet PO PRN (21:40)
[2021-11-30 05:56] VITALS: TEMP 97.4
[2021-11-30] MEDS: Lantus 1000 UNITS/10 ML VIAL SC SCH (10:11)
[2021-11-30] MEDS: Gabapentin 300 MG CAP PO SCH (10:12)
[2021-11-30] MEDS: Furosemide 40 MG TAB PO SCH (10:12)
[2021-11-30] MEDS: Enoxaparin Sodium 40 MG/0.4 ML SYRINGE SC SCH (10:12)
[2021-11-30] MEDS: Loratadine 10 MG TAB PO SCH (10:12)
[2021-11-30] MEDS: Calcitriol 0.25 MCG CAP PO SCH (10:13)
[2021-11-30] MEDS: hydrALAZINE 10 MG TAB PO SCH (10:13)
[2021-11-30] MEDS: Aspirin 81 mg Enteric Coated Tablet PO SCH (10:14)
[2021-11-30] MEDS: Amlodipine 5 MG TAB PO SCH (10:14)
[2021-11-30 10:15] VITALS: BP 132/71
[2021-11-30] MEDS: Polyethylene Glycol 3350 17 GM Packet PO SCH (10:15)
== END 2021-11-30 14:45 | disposition home or self-care (01) | DRG 638 ==
LOC: BURMED 17:40
PROVIDERS: ADMIT Family Medicine; ATTEND Family Medicine
DX: E11.69 Type 2 diabetes mellitus with other specified complication (principal); M86.8X7 Other osteomyelitis, ankle and foot; Z68.42 Body mass index [BMI] 45.0-49.9, adult; Z20.822 Contact with and (suspected) exposure to COVID-19; E11.621 Type 2 diabetes mellitus with foot ulcer; L97.529 Non-pressure chronic ulcer of other part of left foot with unspecified severity; E78.5 Hyperlipidemia, unspecified; E11.42 Type 2 diabetes mellitus with diabetic polyneuropathy; E11.51 Type 2 diabetes mellitus with diabetic peripheral angiopathy without gangrene; R53.1 Weakness; I12.9 Hypertensive chronic kidney disease with stage 1 through stage 4 chronic kidney disease, or unspecified chronic kidney disease; N18.30 Chronic kidney disease, stage 3 unspecified; E11.22 Type 2 diabetes mellitus with diabetic chronic kidney disease; Z60.2 Problems related to living alone; E66.01 Morbid (severe) obesity due to excess calories; F41.9 Anxiety disorder, unspecified; F32.A Depression, unspecified; D63.1 Anemia in chronic kidney disease; E11.65 Type 2 diabetes mellitus with hyperglycemia; Z89.511 Acquired absence of right leg below knee; Z79.4 Long term (current) use of insulin; Z88.8 Allergy status to other drugs, medicaments and biological substances; Z91.018 Allergy to other foods; Z79.899 Other long term (current) drug therapy; Z79.82 Long term (current) use of aspirin; Z82.3 Family history of stroke; Z83.3 Family history of diabetes mellitus; Z80.9 Family history of malignant neoplasm, unspecified
CPT/HCPCS: 36415; 36416; 80053; 81003; 81015; 82565; 85014; 85018; 85025; 85049; 86140; 97602; J0692; J1650; J1815; J3490; U0003; U0005

== ENCOUNTER 2022-12-14 12:56 | Observation (INO) | payer MEDICARE, MEDICAID ==
[2022-12-14] MEDS ORDERED: Clindamycin/D5W 600 mg/50 ml Premix Bag ONE ×2 (13:33→13:36)
[2022-12-14 13:50] LABS: #Basophils 0.1 thou/uL (0.0-0.2); #Eosinphils 0.2 thou/uL (0.0-0.7); #Lymphocytes 1.4 thou/uL (1.20-3.40); #Monocytes 0.4 thou/uL (0.11-0.59); %Basophils 0.9 % (0.0-1.0); %Eosinophils 2.5 % (0.0-10.0); %Lymphocytes 20.3 % (21.0-51.0); %Monocytes 5.3 % (0.0-10.0); Hemoglobin 10.8 g/dL (14.0-18.0); Hypochromia SLIGHT = 6-15 cells (100X) (0-5/hpf); MDiff Complete? YES; Mean Corpuscular Hemoglobin 24.5 pg (27.0-31.0); Mean Corpuscular Volume 79.1 fl (78.0-98.0); Mean Platelet Volume 6.3 fL (7.4-10.4); Microcytosis SLIGHT = 6-15 cells (100X) (0-5/hpf); Ovalocytes SLIGHT = 2-5 cells (100X) (0-1/hpf); Platelet Count 211 10x3/uL (130-400); RBC Distribution Width 14.6 % (11.5-14.5); Red Blood Cell (RBC) Count 4.42 mill/uL (4.70-6.10); White Blood Cell (WBC) Count 7.1 10x3/uL (4.8-10.8)
[2022-12-14 14:03] LABS: ALT (SGPT) 30 U/L (8-55); AST (SGOT) 16 U/L (5-34); Albumin 3.2 g/dL (3.5-5.0); Alkaline Phosphatase 84 U/L (40-110); Anion Gap 14 mmol/L (10-20); BUN (Urea Nitrogen) 32 mg/dL (8.4-25.7); Bilirubin, Total 0.3 mg/dL (0.2-1.2); Calc. Creatinine Clearance 0 mL/min (70-130); Calcium 8.9 mg/dL (7.8-10.44); Carbon Dioxide 24 mmol/L (22-29); Chloride 103 mmol/L (98-107); Estimated GFR 49; Globulin 3.1 g/dL (2.4-3.5); Glucose 144 mg/dL (70-105); Potassium 4.2 mmol/L (3.5-5.1); Protein, Total 6.3 g/dL (6.0-8.3); Sodium 137 mmol/L (136-145)
[2022-12-14 18:17] VITALS: BMI 41.7
[2022-12-14] MEDS ORDERED: Acetaminophen 325 MG TAB PO PRN (19:45)
[2022-12-14] MEDS ORDERED: Ondansetron PF 4 MG/2 ML Vial IVP PRN (19:45)
[2022-12-14] MEDS ORDERED: Ondansetron ODT 4 MG TAB SL PRN (19:45)
[2022-12-14] MEDS ORDERED: tiZANidine HCl 4 MG TAB PO PRN (21:09)
[2022-12-14] MEDS ORDERED: Senokot S 8.6-50 MG TAB PO PRN (21:09)
[2022-12-14] MEDS ORDERED: Glucagon 1 MG/ML KIT IM PRN (21:11)
[2022-12-14] MEDS ORDERED: Dextrose 5% in Water 1,000 ML IV PRN (21:11)
[2022-12-14] MEDS ORDERED: Dextrose 50% Abboject 50 ML SYRINGE SLOW IVP PRN (21:11)
[2022-12-14] MEDS ORDERED: HumaLOG 300 UNITS/3 ML VIAL SC PRN ×2 (21:11)
[2022-12-14] MEDS ORDERED: Gabapentin 300 MG CAP PO SCH (22:00)
[2022-12-14] MEDS ORDERED: HumaLOG 300 UNITS/3 ML VIAL SC SCH (22:00)
[2022-12-14] MEDS ORDERED: Famotidine 20 MG TAB PO SCH (22:00)
[2022-12-14] MEDS ORDERED: Sertraline 100 MG TAB PO SCH (22:00)
[2022-12-14] MEDS ORDERED: Lantus 1000 UNITS/10 ML VIAL SC SCH (22:00)
[2022-12-14] MEDS ORDERED: Atorvastatin Calcium 40 MG TAB PO SCH (22:00)
[2022-12-14] MEDS ORDERED: traZODone HCl 50 MG TAB PO SCH (22:00)
[2022-12-14] MEDS ORDERED: Loratadine 10 MG TAB PO SCH (22:00)
[2022-12-14] MEDS ORDERED: hydrALAZINE 10 MG TAB PO SCH (22:00)
[2022-12-15] MEDS: Polyethylene Glycol 3350 17 GM Packet PO SCH (08:26)
[2022-12-15] MEDS: Aspirin 81 mg Enteric Coated Tablet PO SCH (08:27)
[2022-12-15] MEDS: Gabapentin 300 MG CAP PO SCH ×3 (08:27→20:25)
[2022-12-15] MEDS: Furosemide 40 MG TAB PO SCH (08:28)
[2022-12-15] MEDS: Famotidine 20 MG TAB PO SCH ×2 (08:28→20:27)
[2022-12-15] MEDS: Amlodipine 5 MG TAB PO SCH (08:28)
[2022-12-15] MEDS: hydrALAZINE 10 MG TAB PO SCH ×3 (08:29→20:25)
[2022-12-15] MEDS: HumaLOG 300 UNITS/3 ML VIAL SC SCH ×3 (08:40→18:35)
[2022-12-15] MEDS ORDERED: Ondansetron ODT 4 MG TAB SL PRN (19:28)
[2022-12-15] MEDS: Sertraline 100 MG TAB PO SCH (20:24)
[2022-12-15] MEDS: traZODone HCl 50 MG TAB PO SCH (20:24)
[2022-12-15] MEDS: Atorvastatin Calcium 40 MG TAB PO SCH (20:25)
[2022-12-15] MEDS: Loratadine 10 MG TAB PO SCH (20:25)
[2022-12-15] MEDS: Lantus 1000 UNITS/10 ML VIAL SC SCH (20:27)
[2022-12-15] MEDS: traMADol HCl 50 MG TAB PO PRN (20:33)
[2022-12-15] MEDS ORDERED: Famotidine 20 MG TAB PO SCH (21:00)
[2022-12-15] MEDS ORDERED: Acetaminophen 325 MG TAB PO PRN (23:11)
[2022-12-16] MEDS ORDERED: TRULICITY 4.5 MG/0.5 ML SC SCH (09:00)
[2022-12-16] MEDS: HumaLOG 300 UNITS/3 ML VIAL SC SCH ×3 (11:20→18:24)
[2022-12-16] MEDS: Gabapentin 300 MG CAP PO SCH ×3 (11:21→20:47)
[2022-12-16] MEDS: Furosemide 40 MG TAB PO SCH (11:21)
[2022-12-16] MEDS: Aspirin 81 mg Enteric Coated Tablet PO SCH (11:21)
[2022-12-16] MEDS: Famotidine 20 MG TAB PO SCH ×2 (11:21→20:46)
[2022-12-16] MEDS: Amlodipine 5 MG TAB PO SCH (11:22)
[2022-12-16] MEDS: hydrALAZINE 10 MG TAB PO SCH ×3 (11:23→20:46)
[2022-12-16] MEDS: Polyethylene Glycol 3350 17 GM Packet PO SCH (11:24)
[2022-12-16 17:50] VITALS: TEMP 97.8
[2022-12-16] MEDS: Lantus 1000 UNITS/10 ML VIAL SC SCH (20:41)
[2022-12-16] MEDS: Atorvastatin Calcium 40 MG TAB PO SCH (20:43)
[2022-12-16] MEDS: traZODone HCl 50 MG TAB PO SCH (20:44)
[2022-12-16] MEDS: traMADol HCl 50 MG TAB PO PRN (20:44)
[2022-12-16] MEDS: Sertraline 100 MG TAB PO SCH (20:47)
[2022-12-16] MEDS: Loratadine 10 MG TAB PO SCH (20:47)
[2022-12-16 20:48] VITALS: BP 154/84
== END 2022-12-16 20:57 | disposition swing bed (61) ==
LOC: BURERS 12:56 → BURMED 14:46
PROVIDERS: ADMIT Family Medicine; ATTEND Family Medicine
DX: E11.621 Type 2 diabetes mellitus with foot ulcer (principal); E78.5 Hyperlipidemia, unspecified; I12.9 Hypertensive chronic kidney disease with stage 1 through stage 4 chronic kidney disease, or unspecified chronic kidney disease; N18.30 Chronic kidney disease, stage 3 unspecified; E11.40 Type 2 diabetes mellitus with diabetic neuropathy, unspecified; E66.01 Morbid (severe) obesity due to excess calories; G47.30 Sleep apnea, unspecified; D63.1 Anemia in chronic kidney disease; E11.22 Type 2 diabetes mellitus with diabetic chronic kidney disease; L03.116 Cellulitis of left lower limb; M86.9 Osteomyelitis, unspecified; I82.401 Acute embolism and thrombosis of unspecified deep veins of right lower extremity; Z79.4 Long term (current) use of insulin; Z88.8 Allergy status to other drugs, medicaments and biological substances; Z91.018 Allergy to other foods; Z79.899 Other long term (current) drug therapy; Z68.41 Body mass index [BMI] 40.0-44.9, adult
CPT/HCPCS: 36415; 36416; 80053; 85025; 87040; 96374; 97602; J1650; J1815; J3490

== ENCOUNTER 2023-09-25 18:09 | Inpatient (IN) | payer MEDICARE, MEDICAID ==
[2023-09-25] MEDS ORDERED: Acetaminophen/Codeine 30-300mg Tablet PO PRN (18:43)
[2023-09-25] MEDS ORDERED: Ipratropium/Albuterol 3 ML NEB NEB PRN (18:43)
[2023-09-25] MEDS ORDERED: Acetaminophen 325 MG TAB PO PRN (18:43)
[2023-09-25] MEDS ORDERED: Nitroglycerin 0.4 MG TAB (25 Tab Bottle) SL PRN (18:43)
[2023-09-25] MEDS: HYDROcodone/Acetaminophen 5/325 mg Tablet PO PRN (22:39)
[2023-09-25] MEDS: Gabapentin 300 MG CAP PO SCH (22:40)
[2023-09-25] MEDS: Sertraline 100 MG TAB PO SCH (22:40)
[2023-09-25] MEDS: Atorvastatin Calcium 40 MG TAB PO SCH (22:41)
[2023-09-25] MEDS: Lantus 1000 UNITS/10 ML VIAL SC SCH (22:41)
[2023-09-25] MEDS: traZODone HCl 50 MG TAB PO SCH (22:42)
[2023-09-25] MEDS: Loratadine 10 MG TAB PO SCH (22:42)
[2023-09-25] MEDS: Heparin 5,000 UNITS/ML VIAL SC SCH (22:44)
[2023-09-26] MEDS: Lantus 1000 UNITS/10 ML VIAL SC SCH (09:39)
[2023-09-26] MEDS: Furosemide 40 MG TAB PO SCH (09:40)
[2023-09-26] MEDS: Aspirin 81 mg Enteric Coated Tablet PO SCH (09:41)
[2023-09-26] MEDS: Amlodipine 5 MG TAB PO SCH (09:41)
[2023-09-26] MEDS ORDERED: Glucagon 1 MG/ML KIT IM PRN (12:44)
[2023-09-26] MEDS ORDERED: Dextrose 50% Abboject 50 ML SYRINGE SLOW IVP PRN (12:44)
[2023-09-26] MEDS ORDERED: Dextrose 5% in Water 1,000 ML IV PRN (12:44)
[2023-09-26] MEDS: Insulin Regular 300 UNITS/3 ML VIAL SC PRN (13:36)
[2023-09-27] MEDS: Lantus 1000 UNITS/10 ML VIAL SC SCH (10:34)
[2023-09-27] MEDS: Benzocaine/Menthol 1 LOZ LOZ PO PRN (10:48)
[2023-09-28] MEDS: Lantus 1000 UNITS/10 ML VIAL SC SCH (21:03)
[2023-09-29] MEDS ORDERED: Dextrose 5% in Water 1,000 ML IV PRN (07:55)
[2023-09-29] MEDS ORDERED: Dextrose 50% Abboject 50 ML SYRINGE SLOW IVP PRN (07:55)
[2023-09-29] MEDS ORDERED: Glucagon 1 MG/ML KIT IM PRN (07:55)
[2023-10-01] MEDS: DULAGLUTIDE 4.5 MG/0.5 ML SC SCH (09:00)
[2023-10-02] MEDS: Fluticasone Propionate Nasal Spray 16 gm Bottle NASAL SCH (09:18)
[2023-10-03] MEDS: tiZANidine HCl 4 MG TAB PO PRN (01:18)
[2023-10-03 05:32] LABS: Hematocrit 34.1 % (42.0-52.0); Hemoglobin 10.6 g/dL (14.0-18.0); Platelet Count 228 10x3/uL (130-400)
[2023-10-03 05:57] LABS: Anion Gap 14 mmol/L (10-20); BUN (Urea Nitrogen) 53 mg/dL (8.4-25.7); Calc. Creatinine Clearance 87 mL/min (70-130); Calcium 8.4 mg/dL (7.8-10.44); Carbon Dioxide 26 mmol/L (22-29); Chloride 101 mmol/L (98-107); Estimated GFR 33; Glucose 168 mg/dL (70-105); Potassium 4.1 mmol/L (3.5-5.1); Sodium 137 mmol/L (136-145)
[2023-10-03] MEDS: HYDROcodone/Acetaminophen 5/325 mg Tablet PO PRN (21:09)
[2023-10-04] MEDS: Heparin 10,000 UNITS/ 10 ML VIAL ONE (15:08)
[2023-10-05] MEDS: Insulin Regular 300 UNITS/3 ML VIAL SC PRN (20:36)
[2023-10-06] MEDS: HYDROcodone/Acetaminophen 5/325 mg Tablet PO PRN (09:01)
[2023-10-06] MEDS: Senokot S 8.6-50 MG TAB PO PRN (17:11)
[2023-10-10] MEDS: Senokot S 8.6-50 MG TAB PO SCH ×2 (09:59→21:43)
[2023-10-12 11:51] LABS: #Basophils 0.1 thou/uL (0.0-0.2); #Eosinphils 0.2 thou/uL (0.0-0.7); #Lymphocytes 2.1 thou/uL (1.20-3.40); #Monocytes 0.3 thou/uL (0.11-0.59); #Neutrophils 5.7 thou/uL (1.40-6.50); %Basophils 1.1 % (0.0-1.0); %Eosinophils 2.6 % (0.0-10.0); %Lymphocytes 24.8 % (21.0-51.0); %Monocytes 3.9 % (0.0-10.0); %Neutrophils 67.7 % (42.0-75.0); Hematocrit 38.6 % (42.0-52.0); Hemoglobin 11.9 g/dL (14.0-18.0); Mean Corpuscular HGB CONC 30.9 g/dL (32.0-36.0); Mean Corpuscular Hemoglobin 25.8 pg (27.0-31.0); Mean Corpuscular Volume 83.7 fl (78.0-98.0); Mean Platelet Volume 6.5 fL (7.4-10.4); Platelet Count 212 10x3/uL (130-400); RBC Distribution Width 14.2 % (11.5-14.5); Red Blood Cell (RBC) Count 4.62 mill/uL (4.70-6.10); White Blood Cell (WBC) Count 8.4 10x3/uL (4.8-10.8)
[2023-10-14] MEDS: HYDROcodone/Acetaminophen 5/325 mg Tablet PO PRN (20:53)
[2023-10-15] MEDS: Sertraline 100 MG TAB PO SCH (20:53)
[2023-10-16 09:12] LABS: ALT (SGPT) 27 U/L (8-55); AST (SGOT) 19 U/L (5-34); Albumin 3.1 g/dL (3.5-5.0); Alkaline Phosphatase 68 U/L (40-110); Anion Gap 13 mmol/L (10-20); BUN (Urea Nitrogen) 63 mg/dL (8.4-25.7); Bilirubin, Total 0.3 mg/dL (0.2-1.2); Calc. Creatinine Clearance 98 mL/min (70-130); Calcium 8.8 mg/dL (7.8-10.44); Carbon Dioxide 24 mmol/L (22-29); Chloride 108 mmol/L (98-107); Estimated GFR 40; Globulin 3.2 g/dL (2.4-3.5); Glucose 96 mg/dL (70-105); Potassium 4.2 mmol/L (3.5-5.1); Protein, Total 6.3 g/dL (6.0-8.3); Sodium 141 mmol/L (136-145)
[2023-10-16 09:22] LABS: #Basophils 0.1 thou/uL (0.0-0.2); #Eosinphils 0.3 thou/uL (0.0-0.7); #Lymphocytes 2.9 thou/uL (1.20-3.40); #Monocytes 0.6 thou/uL (0.11-0.59); #Neutrophils 4.7 thou/uL (1.40-6.50); %Eosinophils 3.4 % (0.0-10.0); %Lymphocytes 33.9 % (21.0-51.0); %Monocytes 6.8 % (0.0-10.0); Hematocrit 32.9 % (42.0-52.0); Hemoglobin 10.6 g/dL (14.0-18.0); Mean Corpuscular HGB CONC 32.1 g/dL (32.0-36.0); Mean Corpuscular Hemoglobin 26.8 pg (27.0-31.0); Mean Corpuscular Volume 83.5 fl (78.0-98.0); Mean Platelet Volume 7.1 fL (7.4-10.4); Platelet Count 212 10x3/uL (130-400); RBC Distribution Width 13.6 % (11.5-14.5); Red Blood Cell (RBC) Count 3.94 mill/uL (4.70-6.10); White Blood Cell (WBC) Count 8.6 10x3/uL (4.8-10.8)
[2023-10-18 10:30] VITALS: BMI 46.4
[2023-10-19] MEDS: Ondansetron ODT 4 MG TAB PO PRN (10:32)
[2023-10-20 05:17] VITALS: BMI 49.5
[2023-10-20] MEDS: Cefepime 2 GM in Sodium Chloride 0.9% 100 ML IVPB SCH (15:57)
[2023-10-20] MEDS: Vancomycin HCl 750 MG in Sodium Chloride 0.9% 250 ML 250 ML IVPB SCH (16:44)
[2023-10-20] MEDS ORDERED: Vancomycin HCl 500 MG in Sodium Chloride 0.9% 100 ML IVPB SCH (17:00)
[2023-10-20] MEDS ORDERED: Vancomycin 1 GM in Sodium Chloride 0.9% 250 ML 250 ML IVPB SCH (18:00)
[2023-10-20 18:12] VITALS: BP 145/88; TEMP 98.5
[2023-10-20] MEDS ORDERED: Vancomycin 1.5 GM in Sodium Chloride 0.9% 250 ML 300 ML IVPB SCH (21:00)
[2023-10-21] MEDS ORDERED: Vancomycin 1 GM in Sodium Chloride 0.9% 250 ML 250 ML IVPB SCH (06:00)
== END 2023-10-20 18:21 | disposition short-term general hospital (02) | DRG 638 ==
LOC: BURMED 18:10
PROVIDERS: ADMIT Family Medicine; ATTEND Nurse Practitioner
DX: E11.69 Type 2 diabetes mellitus with other specified complication (principal); M86.9 Osteomyelitis, unspecified; E11.621 Type 2 diabetes mellitus with foot ulcer; E11.65 Type 2 diabetes mellitus with hyperglycemia; E11.51 Type 2 diabetes mellitus with diabetic peripheral angiopathy without gangrene; I11.0 Hypertensive heart disease with heart failure; I50.9 Heart failure, unspecified; Z79.899 Other long term (current) drug therapy
CPT/HCPCS: 36415; 36416; 80048; 80053; 85014; 85018; 85025; 85049; 86140; 97602; J0692; J1644; J1815; J3370; J3490; J7050; Q0162

== ENCOUNTER 2023-10-26 14:29 | Inpatient (IN) | payer MEDICARE, MEDICAID ==
[2023-10-30] MEDS ORDERED: Ondansetron ODT 4 MG TAB PO PRN (16:20)
[2023-10-30] MEDS ORDERED: Nitroglycerin 0.4 MG TAB (25 Tab Bottle) SL PRN (16:20)
[2023-10-30] MEDS ORDERED: Benzocaine/Menthol 1 LOZ LOZ PO PRN (16:20)
[2023-10-30] MEDS: Sertraline 100 MG TAB PO SCH (21:19)
[2023-10-30] MEDS: tiZANidine HCl 4 MG TAB PO PRN (21:19)
[2023-10-30] MEDS: Loratadine 10 MG TAB PO SCH (21:19)
[2023-10-30] MEDS: Famotidine 20 MG TAB PO SCH (21:19)
[2023-10-30] MEDS: Atorvastatin Calcium 40 MG TAB PO SCH (21:19)
[2023-10-30] MEDS: hydrALAZINE 10 MG TAB PO SCH (21:19)
[2023-10-30] MEDS: traZODone HCl 50 MG TAB PO SCH (21:19)
[2023-10-30] MEDS: Lantus 1000 UNITS/10 ML VIAL SC SCH (21:20)
[2023-10-30] MEDS: Gabapentin 300 MG CAP PO SCH (21:20)
[2023-10-30] MEDS: Heparin 5,000 UNITS/ML VIAL SC SCH (21:25)
[2023-10-31] MEDS ORDERED: Dextrose 50% Abboject 50 ML SYRINGE SLOW IVP PRN (07:10)
[2023-10-31] MEDS ORDERED: Dextrose 5% in Water 1,000 ML IV PRN (07:10)
[2023-10-31] MEDS ORDERED: Glucagon 1 MG/ML KIT IM PRN (07:10)
[2023-10-31] MEDS: Ertapenem 1 GM in Sodium Chloride 0.9% 100 ML IVPB SCH (08:45)
[2023-10-31] MEDS: HumaLOG 300 UNITS/3 ML VIAL SC PRN (08:47)
[2023-10-31] MEDS: Senokot S 8.6-50 MG TAB PO SCH (08:48)
[2023-10-31] MEDS: Aspirin 81 mg Enteric Coated Tablet PO SCH (08:48)
[2023-10-31] MEDS: Furosemide 40 MG TAB PO SCH (08:49)
[2023-10-31] MEDS: Amlodipine 5 MG TAB PO SCH (08:49)
[2023-10-31] MEDS: Fluticasone Propionate Nasal Spray 16 gm Bottle NASAL SCH (08:50)
[2023-10-31] MEDS: HYDROcodone/Acetaminophen 5/325 mg Tablet PO PRN ×2 (12:36→20:52)
[2023-11-01] MEDS: HumaLOG 300 UNITS/3 ML VIAL SC PRN (20:55)
[2023-11-02] MEDS: Lidocaine 4% Patch TD SCH (09:04)
[2023-11-02] MEDS: Transdermal Patch Removal TOP SCH (21:34)
[2023-11-04] MEDS: Lantus 1000 UNITS/10 ML VIAL SC SCH (21:02)
[2023-11-05] MEDS: Lantus 1000 UNITS/10 ML VIAL SC SCH (20:52)
[2023-11-07] MEDS: Polyethylene Glycol 3350 17 GM Packet PO PRN (10:04)
[2023-11-08 05:01] LABS: #Basophils 0.1 thou/uL (0.0-0.2); #Eosinphils 0.5 thou/uL (0.0-0.7); #Monocytes 0.6 thou/uL (0.11-0.59); #Neutrophils 4.3 thou/uL (1.40-6.50); %Basophils 1.1 % (0.0-1.0); %Eosinophils 5.9 % (0.0-10.0); %Lymphocytes 35.5 % (21.0-51.0); %Monocytes 7.4 % (0.0-10.0); %Neutrophils 50.2 % (42.0-75.0); Hematocrit 34.2 % (42.0-52.0); Hemoglobin 10.9 g/dL (14.0-18.0); Mean Corpuscular HGB CONC 31.9 g/dL (32.0-36.0); Mean Corpuscular Hemoglobin 26.2 pg (27.0-31.0); Mean Corpuscular Volume 81.9 fl (78.0-98.0); Mean Platelet Volume 5.7 fL (7.4-10.4); Platelet Count 228 10x3/uL (130-400); RBC Distribution Width 13.1 % (11.5-14.5); Red Blood Cell (RBC) Count 4.17 mill/uL (4.70-6.10); White Blood Cell (WBC) Count 8.6 10x3/uL (4.8-10.8)
[2023-11-08 05:16] LABS: Anion Gap 13 mmol/L (10-20); BUN (Urea Nitrogen) 69 mg/dL (8.4-25.7); Calc. Creatinine Clearance 81 mL/min (70-130); Carbon Dioxide 25 mmol/L (22-29); Chloride 101 mmol/L (98-107); Potassium 4.4 mmol/L (3.5-5.1); Sodium 135 mmol/L (136-145)
[2023-11-08 05:17] LABS: Calcium 8.9 mg/dL (7.8-10.44); Estimated GFR 32; Glucose 237 mg/dL (70-105)
[2023-11-09] MEDS: HYDROcodone/Acetaminophen 5/325 mg Tablet PO PRN (20:51)
[2023-11-10] MEDS: Acetaminophen 325 MG TAB PO PRN (09:21)
[2023-11-13] MEDS ORDERED: Glucagon 1 MG/ML KIT IM PRN (07:44)
[2023-11-13] MEDS ORDERED: Dextrose 50% Abboject 50 ML SYRINGE SLOW IVP PRN (07:44)
[2023-11-13] MEDS ORDERED: Dextrose 5% in Water 1,000 ML IV PRN (07:44)
[2023-11-13] MEDS: Lantus 1000 UNITS/10 ML VIAL SC SCH ×2 (08:57→20:08)
[2023-11-13] MEDS: HumaLOG 300 UNITS/3 ML VIAL SC PRN ×2 (08:59→20:09)
[2023-11-13] MEDS ORDERED: Insulin Glargine 10 UNITS in PREFILLED SYR 1 EACH SC SCH (09:00)
[2023-11-13] MEDS ORDERED: PREFILLED SC SCH (21:00)
[2023-11-13] MEDS ORDERED: INSULIN GLARGINE SC SCH (21:00)
[2023-11-15 06:20] LABS: #Basophils 0.1 thou/uL (0.0-0.2); #Eosinphils 0.5 thou/uL (0.0-0.7); #Monocytes 0.5 thou/uL (0.11-0.59); #Neutrophils 4.4 thou/uL (1.40-6.50); %Basophils 1.5 % (0.0-1.0); %Eosinophils 6.3 % (0.0-10.0); %Lymphocytes 35.3 % (21.0-51.0); %Neutrophils 50.9 % (42.0-75.0); Hematocrit 33.5 % (42.0-52.0); Hemoglobin 10.8 g/dL (14.0-18.0); Mean Corpuscular HGB CONC 32.3 g/dL (32.0-36.0); Mean Corpuscular Hemoglobin 26.1 pg (27.0-31.0); Mean Corpuscular Volume 80.9 fl (78.0-98.0); Mean Platelet Volume 6.7 fL (7.4-10.4); Platelet Count 206 10x3/uL (130-400); RBC Distribution Width 12.9 % (11.5-14.5); Red Blood Cell (RBC) Count 4.14 mill/uL (4.70-6.10); White Blood Cell (WBC) Count 8.6 10x3/uL (4.8-10.8)
[2023-11-15 06:36] LABS: Anion Gap 14 mmol/L (10-20); BUN (Urea Nitrogen) 57 mg/dL (8.4-25.7); Calc. Creatinine Clearance 93 mL/min (70-130); Calcium 8.7 mg/dL (7.8-10.44); Carbon Dioxide 23 mmol/L (22-29); Chloride 103 mmol/L (98-107); Estimated GFR 37; Glucose 203 mg/dL (70-105); Sodium 136 mmol/L (136-145)
[2023-11-15] MEDS: Ertapenem 1 GM in Sodium Chloride 0.9% 100 ML IVPB SCH (09:58)
[2023-11-15] MEDS: Saccharomyces boulardii 250 MG CAP PO SCH (10:00)
[2023-11-18] MEDS: Lantus 1000 UNITS/10 ML VIAL SC SCH (15:11)
[2023-11-19] MEDS: HYDROcodone/Acetaminophen 5/325 mg Tablet PO PRN (21:16)
[2023-11-20] MEDS: Lantus 1000 UNITS/10 ML VIAL SC SCH (09:55)
[2023-11-20] MEDS: HYDROcodone/Acetaminophen 5/325 mg Tablet PO PRN (21:00)
[2023-11-23] MEDS: Lantus 1000 UNITS/10 ML VIAL SC SCH (11:29)
[2023-11-23] MEDS ORDERED: Famotidine 20 MG TAB ONE (20:20)
[2023-11-23] MEDS ORDERED: Atorvastatin Calcium 40 MG TAB ONE (20:20)
[2023-11-23] MEDS ORDERED: Gabapentin 300 MG CAP ONE (20:20)
[2023-11-23] MEDS ORDERED: Loratadine 10 MG TAB ONE (20:20)
[2023-11-24] MEDS ORDERED: Heparin 5,000 UNITS/ML VIAL ONE (06:00)
[2023-11-25] MEDS: Lantus 1000 UNITS/10 ML VIAL SC SCH (09:38)
[2023-11-27 19:55] VITALS: BMI 47.6
[2023-12-03] MEDS: Lantus 1000 UNITS/10 ML VIAL SC SCH ×2 (10:05→21:13)
[2023-12-04 05:09] LABS: #Basophils 0.1 thou/uL (0.0-0.2); #Eosinphils 0.9 thou/uL (0.0-0.7); #Lymphocytes 3.6 thou/uL (1.20-3.40); #Monocytes 0.8 thou/uL (0.11-0.59); #Neutrophils 5.8 thou/uL (1.40-6.50); %Basophils 1.1 % (0.0-1.0); %Eosinophils 8.3 % (0.0-10.0); %Lymphocytes 31.9 % (21.0-51.0); %Monocytes 6.9 % (0.0-10.0); %Neutrophils 51.8 % (42.0-75.0); Hematocrit 35.4 % (42.0-52.0); Hemoglobin 11.6 g/dL (14.0-18.0); Mean Corpuscular HGB CONC 32.7 g/dL (32.0-36.0); Mean Corpuscular Hemoglobin 26.2 pg (27.0-31.0); Mean Platelet Volume 6.2 fL (7.4-10.4); Platelet Count 203 10x3/uL (130-400); RBC Distribution Width 12.9 % (11.5-14.5); Red Blood Cell (RBC) Count 4.43 mill/uL (4.70-6.10); White Blood Cell (WBC) Count 11.2 10x3/uL (4.8-10.8)
[2023-12-04 05:21] LABS: Anion Gap 13 mmol/L (10-20); BUN (Urea Nitrogen) 45 mg/dL (8.4-25.7); Calc. Creatinine Clearance 102 mL/min (70-130); Carbon Dioxide 27 mmol/L (22-29); Chloride 104 mmol/L (98-107); Potassium 4.2 mmol/L (3.5-5.1); Sodium 140 mmol/L (136-145)
[2023-12-04 05:22] LABS: Estimated GFR 41; Glucose 119 mg/dL (70-105)
[2023-12-05 18:18] VITALS: TEMP 98.8
[2023-12-06 06:05] VITALS: BMI 47.2
[2023-12-06 08:26] VITALS: BP 166/89
== END 2023-12-06 10:38 | disposition home health service (06) | DRG 638 ==
LOC: BURMED 10-30 15:10
PROVIDERS: ADMIT Family Medicine; ATTEND Family Medicine
DX: E11.69 Type 2 diabetes mellitus with other specified complication (principal); M86.8X7 Other osteomyelitis, ankle and foot; Z68.42 Body mass index [BMI] 45.0-49.9, adult; N18.30 Chronic kidney disease, stage 3 unspecified; E11.22 Type 2 diabetes mellitus with diabetic chronic kidney disease; R53.1 Weakness; E78.2 Mixed hyperlipidemia; I12.9 Hypertensive chronic kidney disease with stage 1 through stage 4 chronic kidney disease, or unspecified chronic kidney disease; F41.8 Other specified anxiety disorders; E66.01 Morbid (severe) obesity due to excess calories; E11.51 Type 2 diabetes mellitus with diabetic peripheral angiopathy without gangrene; Z89.511 Acquired absence of right leg below knee; E11.65 Type 2 diabetes mellitus with hyperglycemia; D72.829 Elevated white blood cell count, unspecified
CPT/HCPCS: 36415; 36416; 80048; 85025; 97602; J1335; J1644; J1815; J3490